=== PATIENT | female | born 1970 | race Caucasian/White ===

== ENCOUNTER 2016-06-03 07:35 | Outpatient (CLI) | payer MEDICAID | END 2016-06-03 07:36 | disposition home or self-care (01) | DX: R11.0 Nausea (principal) ==

== ENCOUNTER 2016-07-22 15:35 | Emergency (ER) | payer MEDICAID ==
[2016-07-22] MEDS ORDERED: FAMOTIDINE 20 MG TABLET PO STA (16:54)
[2016-07-22] MEDS ORDERED: LIDOCAINE VISCOUS 2% 15 ML UDC MM STA (16:54)
[2016-07-22] MEDS ORDERED: MAG HYDROX/AL HYDROX/SIMETH 30 ML UDC PO STA (16:54)
[2016-07-22] MEDS ORDERED: SUCRALFATE 1 GM/10 ML UDC PO STA (16:55)
[2016-07-22] MEDS ORDERED: MAG HYDROX/AL HYDROX/SIMETH 30 ML UDC ONE (17:07)
[2016-07-22] MEDS ORDERED: FAMOTIDINE 20 MG TABLET ONE (17:07)
[2016-07-22] MEDS ORDERED: SUCRALFATE 1 GM/10 ML UDC ONE (17:07)
[2016-07-22] MEDS ORDERED: LIDOCAINE VISCOUS 2% 15 ML UDC MM ONE (17:07)
== END 2016-07-22 18:01 | disposition home or self-care (01) ==
DX: K29.70 Gastritis, unspecified, without bleeding (principal)
CPT/HCPCS: 80053; 83690; 85025; 99283; A9270

== ENCOUNTER 2016-08-12 09:43 | Emergency (ER) | payer MEDICAID ==
[2016-08-12 10:21] LABS: BILIRUBIN,URINE NEGATIVE (NEGATIVE); PH,URINE 5.5 PH (5.0-7.5)
[2016-08-12 10:22] LABS: UA w/ MICROSCOPIC CHARGE YES
[2016-08-12 10:31] LABS: UR CULTURE IF IND NOT INDICATED; WBC,URINE 0-3 /HPF (0-5)
[2016-08-12] MEDS ORDERED: KETOROLAC 60 MG/2 ML VIAL IVP STA (11:02)
[2016-08-12] MEDS ORDERED: SODIUM CHLORIDE 0.9% 1,000 ML IV ONE (11:02)
[2016-08-12] MEDS ORDERED: KETOROLAC 60 MG/2 ML VIAL ONE (11:16)
[2016-08-12 11:31] LABS: EOSINOPHILS # (AUTO) 0.3 10^3/uL (0.0-0.7); LYMPHOCYTES # (AUTO) 2.5 10^3/uL (1.5-3.5); NEUTROPHILS # (AUTO) 5.4 10^3/uL (1.5-6.6)
[2016-08-12 11:32] LABS: BASOPHILS # (AUTO) 0.1 10^3/uL (0.0-0.1); BASOPHILS % (AUTO) 0.7 %; EOSINOPHILS % (AUTO) 3.7 %; HGB - HEMOGLOBIN 15.3 g/dL (12.0-16.0); LYMPHOCYTES % (AUTO) 28.6 %; MEAN CORPUSCULAR HEMOGLOBIN 29.7 pg (27.0-31.0); MEAN CORPUSCULAR HGB CONC 33.9 g/dL (32.0-36.0); MEAN CORPUSCULAR VOLUME 87.4 fL (81.0-99.0); MEAN PLATELET VOLUME 8.5 fL (7.9-10.8); MONOCYTES # (AUTO) 0.5 10^3/uL (0.0-1.0); MONOCYTES % (AUTO) 5.2 %; NEUTROPHILS % (AUTO) 61.8 %; RED BLOOD COUNT 5.15 10^6/uL (4.20-5.40); RED CELL DISTRIBUTION WIDTH 13.8 % (12.0-15.0); UNCORRECTED WHITE BLOOD COUNT 8.8 x10^3/uL; WHITE BLOOD COUNT 8.8 x10^3/uL (4.8-10.8)
[2016-08-12] MEDS ORDERED: KETOROLAC 60 MG/2 ML VIAL IM STA (11:38)
[2016-08-12 11:45] LABS: ALBUMIN/GLOBULIN RATIO 1.3 (1.0-2.2); BILIRUBIN,TOTAL 1.2 mg/dL (0.2-1.0); CALCIUM 9.7 mg/dL (8.5-10.3); CREATININE 0.6 mg/dL (0.4-1.0); POTASSIUM 4.1 mmol/L (3.5-5.0); TOTAL PROTEIN 7.7 g/dL (6.7-8.2)
[2016-08-12 12:04] LABS: HCG UR QUAL NEGATIVE
--- NOTE | 2016-08-12 14:08 | ED Physician Documentation ---
PD HPI ABD PAIN - Stated complaint Stated Complaint: ABD PAIN - Chief complaint Chief Complaint: Abd Pain - History obtained from History obtained from: Patient, Family - History of Present Illness Timing - onset: How many days ago (9) Timing - duration: Days (9) Timing - details: Gradual onset, Still present Quality: Sharp, Pain Location: Suprapubic Radiation: Lower back Improved by: Other (nothing) Worsened by: Palpation Associated symptoms: Nausea. No: Fever, Vomiting, Hematemesis, Diarrhea, Constipation, Melena, Dysuria Similar symptoms before: Has not had sx before Recently seen: Clinic (had a urine test done in the clinic.) - Additional information Additional information: 45 y/o female with suprapubic pain for the past nine days that has not improved. Review of Systems Constitutional: denies: Fever, Chills Eyes: denies: Decreased vision Ears: denies: Ear pain Nose: denies: Congestion Throat: denies: Sore throat Cardiac: denies: Chest pain / pressure, Palpitations Respiratory: denies: Dyspnea, Cough GI: reports: Abdominal Pain, Nausea. denies: Vomiting, Constipation, Diarrhea : reports: Frequency. 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 - Present Medications Home Medications: Ambulatory Orders Medication Instructions Recorded Confirmed Amoxicillin 500 mg PO TID #20 tablet 11/12/15 Dexamethasone [Decadron] 4 mg PO DAILY #10 tablet 11/12/15 Hydrocodone/Acetaminophen [[place] 1 each PO Q6H PRN #15 tablet 11/12/15 5-325 Tablet] Naproxen 375 mg PO BID #20 tablet 11/12/15 Famotidine [Pepcid] 20 mg PO BID #60 tablet 07/22/16 Omeprazole [PriLOSEC] 20 mg PO DAILY #30 capsule 07/22/16 oxyCODONE/ACET 5/325 [Percocet 5 1 each PO Q4-6H #20 tablet 08/12/16 mg/325 mg] - Allergies Allergies/Adverse Reactions: Allergies Allergy/AdvReac Type Severity Reaction Status Date / Time No Known Drug Allergies Allergy Verified 08/18/14 20:48 - Social History Does the pt smoke?: No Smoking Status: Never smoker Does the pt drink ETOH?: No Does the pt have substance abuse?: No - Immunizations Immunizations are current?: Yes - POLST Patient has POLST: No PD ED PE NORMAL - Vitals Vital signs reviewed: Yes (hypesrtensive ) - General General: Alert and oriented X 3, Well developed/nourished, Other (The patient appears to be in pain with corruagator tone and flat affect. ) - HEENT HEENT: Atraumatic, PERRL, EOMI - Neck Neck: Supple, no meningeal sign - Cardiac Cardiac: RRR, No murmur - Respiratory Respiratory: No respiratory distress, Clear bilaterally - Abdomen Abdomen: Soft, Other (There is some mild suprapubic tenderness with out garding or rebound. ) - Back Back: No CVA TTP, No spinal TTP - Derm Derm: Normal color, Warm and dry - Extremities Extremities: No deformity, No edema - Neuro Neuro: Alert and oriented X 3, No motor deficit, No sensory deficit, Normal speech - Psych Psych: Normal mood, Normal affect Results - Vitals Vitals: Vital Signs - 24 hr 08/12/16 08/12/16 09:51 13:10 Temperature 36.4 C L Heart Rate 70 72 Respiratory 18 18 Rate Blood Pressure 129/91 H 109/77 O2 Saturation 98 99 Oxygen O2 Source Room air - Labs Labs: Laboratory Tests 08/12/16 08/12/16 08/12/16 09:57 09:57 11:24 WBC 8.8 RBC 5.15 Hgb 15.3 Hct 45.0 MCV 87.4 MCH 29.7 MCHC 33.9 RDW 13.8 Plt Count 277 MPV 8.5 Neut # 5.4 Lymph # 2.5 [place] # 0.5 Eos # 0.3 Baso # 0.1 Absolute Nucleated RBC 0.00 Nucleated RBCs 0.0 Sodium Potassium Chloride Carbon Dioxide Anion Gap BUN Creatinine Estimated GFR (MDRD) Glucose Calcium Total Bilirubin AST ALT Alkaline Phosphatase Total Protein Albumin Globulin Albumin/Globulin Ratio Lipase Urine Color YELLOW Urine Clarity HAZY Urine pH 5.5 Ur Specific [place] >=1.030 H Y Urine Protein NEGATIVE Urine Glucose (UA) NEGATIVE Urine Ketones NEGATIVE Urine Occult Blood MODERATE H Urine Nitrite NEGATIVE Urine Bilirubin NEGATIVE Urine Urobilinogen 0.2 (NORMAL) Ur Leukocyte Esterase NEGATIVE Urine RBC 11-25 H Urine WBC 0-3 Ur Squamous Epith Cells FEW Squamous Urine Bacteria Few Urine Mucus Few Strands Ur Microscopic Review INDICATED Urine Culture Comments NOT INDICATED Urine HCG, Qual NEGATIVE 08/12/16 11:24 WBC RBC Hgb Hct MCV MCH MCHC RDW Plt Count MPV Neut # Lymph # [place] # Eos # Baso # Absolute Nucleated RBC Nucleated RBCs Sodium 139 Potassium 4.1 Chloride 104 Carbon Dioxide 26 Anion Gap 9.0 BUN 13 Creatinine 0.6 Estimated GFR (MDRD) 109 Glucose 92 Calcium 9.7 Total Bilirubin 1.2 H AST 20 ALT 22 Alkaline Phosphatase 74 Total Protein 7.7 Albumin 4.3 Globulin 3.4 Albumin/Globulin Ratio 1.3 Lipase 21 L Urine Color Urine Clarity Urine pH Ur Specific [place] Urine Protein Urine Glucose (UA) Urine Ketones Urine Occult Blood Urine Nitrite Urine Bilirubin Urine Urobilinogen Ur Leukocyte Esterase Urine RBC Urine WBC Ur Squamous Epith Cells Urine Bacteria Urine Mucus Ur Microscopic Review Urine Culture Comments Urine HCG, Qual - Rads (name of study) pelvic ultrasound Radiology: Prelim report reviewed (No significant abnormality), EMP read indepedently, See rad report CT ab pel without Radiology: Prelim report reviewed (Impression: 1. Nonobstructing 2 mm distal left ureter stone. 2. Multiple nonobstructing right kidney stones.), EMP read indepedently, See rad report Procedures - Bedside sono Bedside sono by EMP: with the use of bedside ultrasound both kidneys are imaged and there is no evidence of hydro. The IVC is imaged and is 1.34 with complete collapse consistent with mild dehydration. PD MEDICAL DECISION MAKING - ED course ED course: 45 y/o female with acute lower abdominal pain has a normal appearing pelvic ultrasound and no hydro on bedside but a lot of blood in the urine as the only objective finding. A CT of the abdomen and pelvis demonstrates the presents of a distal stone in the left ureter and about 9 other small stones in the right kidney. She has some relief with the use of the percocet. Departure - Departure Disposition: 01 Home, Self Care Clinical Impression: Ureterolithiasis Condition: Stable Instructions: ED Stone Renal W Colic Follow-Up: Reji Pérez PA-C [Primary Care Provider] - Prescriptions: oxyCODONE/ACET 5/325 [Percocet 5 mg/325 mg] 1 each PO Q4-6H #20 tablet
[2016-08-12] MEDS ORDERED: oxyCOD/ACETAMIN 5 MG/325 MG TABLET PO STA (14:21)
[2016-08-12] MEDS ORDERED: oxyCOD/ACETAMIN 5 MG/325 MG TABLET PO ONE (14:27)
--- NOTE | 2016-08-12 15:08 | CT Preliminary Report ---
Exam: CT Abdomen/Pelvis W/O IMPRESSION: 1. Nonobstructing 2 mm distal left ureter stone. 2. Multiple nonobstructing right kidney stones. [facility] SITE ID: [id number]
--- NOTE | 2016-08-12 15:12 | CT Report ---
REVISED: THIS REPORT WAS ORIGINALLY SIGNED ON 08/12/2016 @ 1512 ORDERS LINKED ON 08/19/2016 EXAM: CT ABDOMEN AND PELVIS (CT KUB) EXAM DATE: 08/12/2016 02:46 PM. CLINICAL HISTORY: Pelvic pain hematuria. COMPARISONS: 05/28/2014. TECHNIQUE: Routine axial helical CT imaging was performed through the abdomen and pelvis without IV contrast. Reconstructions: Coronal and sagittal. In accordance with CT protocol optimization, one or more of the following dose reduction techniques were utilized for this exam: automated exposure control, adjustment of mA and/or KV based on patient size, or use of iterative reconstructive technique. FINDINGS: Lung Bases: Unremarkable. Right Kidney/Ureter: There are multiple nonobstructing right renal calcifications. The largest right renal calcification measures 5 mm in diameter in the lower pole. The ureters normal in caliber without ureteral stone. Left Kidney/Ureter: No left kidney stone or hydronephrosis. There is a new left pelvic calcification measuring 2 mm in diameter on image 80 in the expected location of the distal left ureter. No perinephric edema. Other Solid Organs: Noncontrast images of the solid organs are grossly unremarkable. Gallbladder/Bile Ducts: Unremarkable. Peritoneal Cavity: No free fluid, free air or flex adenopathy. Bowel is grossly unremarkable. Pelvic Organs: Urinary bladder is empty. Uterus is anteverted. Vasculature: Unremarkable. Other: None. IMPRESSION: 1. Nonobstructing 2 mm distal left ureter stone. 2. Multiple nonobstructing right kidney stones. [facility] Referring Provider Line: [phone] SITE ID: [id number]
--- NOTE | 2016-08-12 15:20 | Ultrasound Report ---
PELVIC ULTRASOUND: 08/12/2016 CLINICAL HISTORY:*Pelvic pain COMPARISON: None. TECHNIQUE: Transabdominal pelvic ultrasound performed for global evaluation. Transvaginal pelvic ultrasound performed for detailed evaluation. Real-time scanning performed and static images obtained. FINDINGS: The uterus is 9.4 cm by 5 cm by 4.1 cm for a volume of 100.7 cubic centimeters. Central intrauterine cavity has a diameter of 1.1 cm. Although its AP diameter is slightly prominent, its configuration appears normal. No enhanced vascular flow is seen. No masses are noted within the uterus. There is a nabothian cyst within the uterine cervix measuring 1.2 cm by 8.2 cm. The left ovary measures 2.1 cm by 2.2 cm by 1.5 cm for a volume of 3.6 cubic centimeters. The right ovary measures 2.2 cm by 1.7 cm by 1.4 cm for a volume of 2.7 cubic centimeters. IMPRESSION: NO SIGNIFICANT ABNORMALITY. JOB #: [id number] EXT JOB #: MTDD
[2016-08-12 15:56] VITALS: BP 116/62
== END 2016-08-12 15:55 | disposition home or self-care (01) ==
LOC: ED 09:43
DX: N20.2 Calculus of kidney with calculus of ureter (principal)
CPT/HCPCS: 36415; 74176; 76830; 76856; 80053; 81001; 81025; 83690; 85025; 93976; 96372; 99283; 99284; A9270; 81003; 87086

== ENCOUNTER 2017-02-11 12:35 | Emergency (ER) | payer MEDICAID ==
[2017-02-11] MEDS ORDERED: ONDANSETRON 4 MG/2 ML VIAL IVP STA (13:06)
[2017-02-11] MEDS ORDERED: HYDROmorphone 1 MG/ML SYRINGE IVP STA ×2 (13:06→14:33)
[2017-02-11 13:26] LABS: BASOPHILS # (AUTO) 0.1 10^3/uL (0.0-0.1); BASOPHILS % (AUTO) 0.9 %; EOSINOPHILS # (AUTO) 0.3 10^3/uL (0.0-0.7); EOSINOPHILS % (AUTO) 3.4 %; HCT - HEMATOCRIT 41.2 % (37.0-47.0); LYMPHOCYTES # (AUTO) 2.1 10^3/uL (1.5-3.5); LYMPHOCYTES % (AUTO) 20.8 %; MEAN CORPUSCULAR HEMOGLOBIN 28.9 pg (27.0-31.0); MEAN CORPUSCULAR VOLUME 84.9 fL (81.0-99.0); MONOCYTES # (AUTO) 0.6 10^3/uL (0.0-1.0); MONOCYTES % (AUTO) 5.5 %; NEUTROPHILS # (AUTO) 7.1 10^3/uL (1.5-6.6); NEUTROPHILS % (AUTO) 69.4 %; NUCLEATED RED BLOOD CELLS AUTO 0.1 /100WBC; RED BLOOD COUNT 4.85 10^6/uL (4.20-5.40); RED CELL DISTRIBUTION WIDTH 14.5 % (12.0-15.0); UNCORRECTED WHITE BLOOD COUNT 10.2 x10^3/uL; WHITE BLOOD COUNT 10.2 x10^3/uL (4.8-10.8)
[2017-02-11] MEDS ORDERED: HYDROmorphone 1 MG/ML SYRINGE ONE ×2 (13:27→14:57)
[2017-02-11] MEDS ORDERED: ONDANSETRON 4 MG/2 ML VIAL ONE (13:27)
[2017-02-11 14:08] LABS: BILIRUBIN,URINE NEGATIVE (NEGATIVE); HCG UR QUAL NEGATIVE; UA w/ MICROSCOPIC CHARGE YES
[2017-02-11 14:19] LABS: UR CULTURE IF IND INDICATED; WBC,URINE >25 /HPF (0-5)
--- NOTE | 2017-02-11 14:27 | CT Report ---
EXAM: CT ABDOMEN AND PELVIS EXAM DATE: 02/11/2017 02:05 PM. CLINICAL HISTORY: RLQ ABD pain . COMPARISONS: 08/12/2016. TECHNIQUE: Routine helical CT imaging was performed through the abdomen and pelvis. IV contrast: No. Enteric contrast: No. Reconstructions: Coronal and sagittal. In accordance with CT protocol optimization, one or more of the following dose reduction techniques w ere utilized for this exam: automated exposure control, adjustment of mA and/or KV based on patient s ize, or use of iterative reconstructive technique. FINDINGS: Lung Bases: Unremarkable. Liver: Normal. No masses. Gallbladder/Bile Ducts: Unremarkable. Spleen: Normal. Pancreas: Normal. Adrenal Glands: Normal. Kidneys: There are 2 stones in the distal right ureter. There is a stone measuring 3 mm at the ureter ovesicular junction. There is a second 3 mm stone in the right pelvis. There is mild to moderate righ t hydronephrosis. There are multiple right kidney stones. The largest nonobstructing right kidney sto ne measures 6 mm in diameter. No hydronephrosis of the left kidney. Peritoneal Cavity/Bowel: Normal. No free fluid, free air or adenopathy. No masses or acute inflammato ry process. The appendix is well visualized and normal. Pelvic Organs: Normal. The bladder and visualized pelvic organs are within normal limits. Vasculature: No aneurysms or other significant abnormality. Bones: No significant abnormality. Other: None. IMPRESSION: 1. Multiple right-sided kidney and ureter stones. There are 2 right ureters stones measuring 3 mm cau sing mild to moderate right hydronephrosis. There are other kidney stones measuring up to 6 mm. [facility] Referring Provider Line: [phone] SITE ID: [id number]
[2017-02-11 14:36] LABS: CREATININE 0.7 mg/dL (0.4-1.0); POTASSIUM 3.9 mmol/L (3.5-5.0)
[2017-02-11 14:37] LABS: ALBUMIN/GLOBULIN RATIO 1.1 (1.0-2.2); BILIRUBIN,TOTAL 0.8 mg/dL (0.2-1.0); CALCIUM 9.5 mg/dL (8.5-10.3); TOTAL PROTEIN 7.3 g/dL (6.7-8.2)
[2017-02-11 14:56] VITALS: BP 120/76
--- NOTE | 2017-02-11 15:21 | ED Physician Documentation ---
PD HPI ABD PAIN - Stated complaint Stated Complaint: R SIDE PX - Chief complaint Chief Complaint: Abd Pain - History obtained from History obtained from: Patient (pt states that she had a sudden onset of right sided flank and RLQ ABD pain. states that she has had renal stones in the past and staes that this feels a little different. she does have bloodin her urine but she has also started her menses.) Review of Systems Constitutional: denies: Fever, Chills, Fatigue Cardiac: denies: Chest pain / pressure, Palpitations Respiratory: denies: Cough, Hemoptysis GI: reports: Abdominal Pain, Nausea, Vomiting. denies: Constipation, Diarrhea : reports: Dysuria, Frequency, Hematuria, Vaginal bleeding. 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 - Present Medications Home Medications: Ambulatory Orders Medication Instructions Recorded Confirmed HYDROcod/ACETAM 5/325 [[place] 5/325] 1 - 2 ea PO Q6H PRN #15 tablet 02/11/17 Ondansetron Odt [Zofran] 4 mg TL Q6H PRN #10 tablet 02/11/17 - Allergies Allergies/Adverse Reactions: Allergies Allergy/AdvReac Type Severity Reaction Status Date / Time No Known Drug Allergies Allergy Verified 02/11/17 12:45 - Social History Does the pt smoke?: No Smoking Status: Never smoker Does the pt drink ETOH?: No Does the pt have substance abuse?: No - Immunizations Immunizations are current?: Yes - POLST Patient has POLST: No PD ED PE NORMAL - Vitals Vital signs reviewed: Yes - General General: Alert and oriented X 3, No acute distress - HEENT HEENT: Atraumatic, Moist mucous membranes - Cardiac Cardiac: RRR, No murmur, No gallop - Respiratory Respiratory: No respiratory distress, Clear bilaterally - Abdomen Abdomen: Normal bowel sounds, Other (RLQ pain w/o rebound or guarding. ) - Back Back: No: No CVA TTP (right CVA tenderness) - Derm Derm: Normal color, Warm and dry, No rash - Neuro Neuro: Alert and oriented X 3 Eye Opening: Spontaneous Motor: Obeys Commands Verbal: Oriented GCS Score: 15 - Psych Psych: Normal mood, Normal affect Results - Vitals Vitals: Vital Signs - 24 hr 02/11/17 02/11/17 02/11/17 12:41 13:32 14:54 Temperature 37.3 C Heart Rate 82 75 67 Respiratory 16 16 18 Rate Blood Pressure 148/95 H 129/84 H 120/76 O2 Saturation 100 98 100 Oxygen O2 Source Room air - Labs Labs: Laboratory Tests 02/11/17 02/11/17 02/11/17 13:05 13:15 13:15 WBC 10.2 RBC 4.85 Hgb 14.0 Hct 41.2 MCV 84.9 MCH 28.9 MCHC 34.0 RDW 14.5 Plt Count 302 MPV 8.0 Neut # 7.1 H Lymph # 2.1 [place] # 0.6 Eos # 0.3 Baso # 0.1 Absolute Nucleated RBC 0.01 Nucleated RBC % 0.1 Sodium 139 Potassium 3.9 Chloride 103 Carbon Dioxide 27 Anion Gap 9.0 BUN 15 Creatinine 0.7 Estimated GFR (MDRD) 91 Glucose 87 Calcium 9.5 Total Bilirubin 0.8 AST 19 ALT 19 Alkaline Phosphatase 74 Total Protein 7.3 Albumin 3.8 Globulin 3.5 Albumin/Globulin Ratio 1.1 Lipase 23 Urine Color YELLOW Urine Clarity CLOUDY Urine pH 6.0 Ur Specific [place] 1.015 Urine Protein NEGATIVE Urine Glucose (UA) NEGATIVE Urine Ketones NEGATIVE Urine Occult Blood MODERATE H Urine Nitrite POSITIVE H Urine Bilirubin NEGATIVE Urine Urobilinogen 0.2 (NORMAL) Ur Leukocyte Esterase SMALL H Urine RBC 0-5 Urine WBC >25 H Urine WBC Clumps PRESENT Ur Squamous Epith Cells FEW Squamous Urine Bacteria Many H Ur Microscopic Review INDICATED Urine Culture Comments INDICATED Urine HCG, Qual NEGATIVE - Rads (name of study) ABD/pelvis Radiology: Final report received (1. Multiple right-sided kidney and ureter stones. There are 2 right ureters stones measuring 3 mm causing mild to moderate right hydronephrosis. There are other kidney stones measuring up to 6 mm) PD MEDICAL DECISION MAKING - ED course Complexity details: d/w patient ED course: pt with hx and PE C/W right sided stones. no signs of sepsis. mild hydro on the right. Will send home with pain meds and zofran. discussed with pt. discussed return precautions. Departure - Departure Disposition: 01 Home, Self Care Clinical Impression: Kidney stones Condition: Good Instructions: Kidney Stones Follow-Up: Reji Pérez PA-C [Primary Care Provider] - Prescriptions: HYDROcod/ACETAM 5/325 [[place] 5/325] 1 - 2 ea PO Q6H PRN #15 tablet PRN Reason: Pain Ondansetron Odt [Zofran] 4 mg TL Q6H PRN #10 tablet PRN Reason: Nausea / Vomiting Comments: return to the ER for any new or worsening symptoms.
== END 2017-02-11 15:56 | disposition home or self-care (01) ==
LOC: ED 12:35
DX: N13.2 Hydronephrosis with renal and ureteral calculous obstruction (principal)
CPT/HCPCS: 36415; 74176; 80053; 81001; 81025; 83690; 85025; 87086; 87181; 96374; 96375; 96376; 99284; J1170; 81003

== ENCOUNTER 2017-02-14 15:02 | Emergency (ER) | payer MEDICAID ==
[2017-02-14 15:38] LABS: BILIRUBIN,URINE NEGATIVE (NEGATIVE)
[2017-02-14 15:39] LABS: UA w/ MICROSCOPIC CHARGE YES
[2017-02-14 15:52] LABS: UR CULTURE IF IND INDICATED; WBC,URINE >25 /HPF (0-5)
[2017-02-14] MEDS ORDERED: MORPHINE 10 MG/ML VIAL IVP STA (16:45)
[2017-02-14] MEDS ORDERED: SODIUM CHLORIDE 0.9% 1,000 ML IV ONE (16:45)
[2017-02-14] MEDS ORDERED: ONDANSETRON 4 MG/2 ML VIAL IVP STA (16:45)
--- NOTE | 2017-02-14 16:48 | ED Physician Documentation ---
PD HPI ABD PAIN - Stated complaint Stated Complaint: FEVER/SIDE PX - Chief complaint Chief Complaint: Abd Pain - History obtained from History obtained from: Patient - History of Present Illness Timing - onset: Other (46-year-old woman with recurrent renal colic, has never seen a urologist and has never needed a intervention. She was seen here on Tuesday with right-sided abdominal pain, CT showed 2 right distal ureteral stones and a 3 mm UVJ stone. There is also another 3 mm stone in the right pelvis causing mild to moderate right hydronephrosis. She had multiple nonobstructing kidney stones as well. She felt better after medication and was sent home. Starting last night she started to have shaking chills and fevers with cloudy malodorous urine. Pain is better but not gone. 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 - Present Medications Home Medications: Ambulatory Orders Medication Instructions Recorded Confirmed No Known Home Medications [No 02/14/17 02/14/17 Known Home Medications] - Allergies Allergies/Adverse Reactions: Allergies Allergy/AdvReac Type Severity Reaction Status Date / Time No Known Drug Allergies Allergy Verified 02/14/17 15:22 - Social History Does the pt smoke?: No Smoking Status: Never smoker Does the pt drink ETOH?: No Does the pt have substance abuse?: No - Family History Family history: reports: Non contributory - Immunizations Immunizations are current?: Yes - POLST Patient has POLST: No PD ED PE NORMAL - Vitals Vital signs reviewed: Yes - General General: Alert and oriented X 3, Other (Clammy and slightly ill-appearing, Tachycardic) - HEENT HEENT: PERRL, EOMI - Neck Neck: Supple, no meningeal sign, No bony TTP - Cardiac Cardiac: Other (Tachycardic, regular, no murmur) - Respiratory Respiratory: No respiratory distress, Clear bilaterally - Abdomen Abdomen: Normal bowel sounds, Soft, Non tender - Derm Derm: Normal color, Warm and dry - Extremities Extremities: No edema, No calf tenderness / cord - Neuro Neuro: Alert and oriented X 3 Eye Opening: Spontaneous Motor: Obeys Commands Verbal: Oriented GCS Score: 15 - Psych Psych: Normal mood, Normal affect Results - Vitals Vitals: Vital Signs - 24 hr 02/14/17 02/14/17 02/14/17 15:16 17:33 17:36 Temperature 37.3 C Heart Rate 130 H 97 119 H Respiratory 18 18 15 Rate Blood Pressure 146/91 H 105/52 L 143/85 H O2 Saturation 100 97 98 02/14/17 19:15 Temperature Heart Rate 119 H Respiratory 20 Rate Blood Pressure 105/63 O2 Saturation 96 Oxygen O2 Source Room air - Labs Labs: Laboratory Tests 02/14/17 02/14/17 02/14/17 15:24 16:50 16:50 WBC 13.1 H RBC 4.56 Hgb 13.0 Hct 39.5 MCV 86.6 MCH 28.6 MCHC 33.0 RDW 14.5 Plt Count 307 MPV 8.0 Neut # SAMPLE STEAMER Lymph # SAMPLE STEAMER [place] # SAMPLE STEAMER Eos # SAMPLE STEAMER Baso # SAMPLE STEAMER Absolute Nucleated RBC SAMPLE STEAMER Total Counted 100 Band Neuts % (Manual) 0 Reactive Lymphs % (Man) 3 Nucleated RBC % SAMPLE STEAMER Neutrophils # (Manual) 11.1 H Lymphocytes # (Manual) 1.2 L Monocytes # (Manual) 0.5 Eosinophils # (Manual) 0.1 Basophils # (Manual) 0.1 Differential Comment MANUAL DIFFERENTIAL WBC Morphology NORMAL APPEARANCE Platelet Estimate NORMAL (130-450,000) Platelet Morphology NORMAL APPEARANCE RBC Morph Micro Appear NORMAL APPEARANCE Sodium 134 L Potassium 3.2 L Chloride 99 L Carbon Dioxide 23 Anion Gap 12.0 BUN 11 Creatinine 0.8 Estimated GFR (MDRD) 78 L Glucose 125 H Lactic Acid Calcium 8.9 Total Bilirubin 1.3 H AST 58 H ALT 62 H Alkaline Phosphatase 79 Total Protein 7.2 Albumin 3.4 Globulin 3.8 Albumin/Globulin Ratio 0.9 L Lipase 18 L Urine Color YELLOW Urine Clarity CLOUDY Urine pH 6.0 Ur Specific [place] 1.015 Urine Protein NEGATIVE Urine Glucose (UA) NEGATIVE Urine Ketones NEGATIVE Urine Occult Blood MODERATE H Urine Nitrite POSITIVE H Urine Bilirubin NEGATIVE Urine Urobilinogen 0.2 (NORMAL) Ur Leukocyte Esterase LARGE H Urine RBC 6-10 H Urine WBC >25 H Urine WBC Clumps PRESENT Ur Squamous Epith Cells FEW Squamous Urine Bacteria Few Ur Microscopic Review INDICATED Urine Culture Comments INDICATED 02/14/17 16:50 WBC RBC Hgb Hct MCV MCH MCHC RDW Plt Count MPV Neut # Lymph # [place] # Eos # Baso # Absolute Nucleated RBC Total Counted Band Neuts % (Manual) Reactive Lymphs % (Man) Nucleated RBC % Neutrophils # (Manual) Lymphocytes # (Manual) Monocytes # (Manual) Eosinophils # (Manual) Basophils # (Manual) Differential Comment WBC Morphology Platelet Estimate Platelet Morphology RBC Morph Micro Appear Sodium Potassium Chloride Carbon Dioxide Anion Gap BUN Creatinine Estimated GFR (MDRD) Glucose Lactic Acid 1.5 Calcium Total Bilirubin AST ALT Alkaline Phosphatase Total Protein Albumin Globulin Albumin/Globulin Ratio Lipase Urine Color Urine Clarity Urine pH Ur Specific [place] Urine Protein Urine Glucose (UA) Urine Ketones Urine Occult Blood Urine Nitrite Urine Bilirubin Urine Urobilinogen Ur Leukocyte Esterase Urine RBC Urine WBC Urine WBC Clumps Ur Squamous Epith Cells Urine Bacteria Ur Microscopic Review Urine Culture Comments Procedures - General procedure General procedure: She was difficult for IV access, the nurse had already tried and failed prior to my evaluation. I personally placed a 20-gauge IV in the right antecubital fossa using real-time ultrasound guidance after ChloraPrep which shankar and flushed well. PD MEDICAL DECISION MAKING - ED course ED course: 46-year-old woman with fever and shaking chills associated with positive urinalysis and known ureteral colic. Positive culture from the other day was reviewed, greater than 100,000 pansensitive E. coli. Call to [facility] urology at 4:45 PM for consultation and likely transfer. Spoke with Dr. Darrell martin who will see in consult but defers to the hospitalist for admission, we agreed on IV Cipro. Accepted by hospitalist there, maria dolores Alexandre completed. Departure - Departure Disposition: 02 Transfer Acute Care Hosp Clinical Impression: Ureterolithiasis, Pyelonephritis Condition: Serious
[2017-02-14] MEDS ORDERED: ONDANSETRON 4 MG/2 ML VIAL ONE (17:01)
[2017-02-14] MEDS ORDERED: MORPHINE 10 MG/ML VIAL ONE (17:01)
[2017-02-14 17:03] LABS: BASOPHILS % (AUTO) 0.3 %; EOSINOPHILS % (AUTO) 0.6 %; HCT - HEMATOCRIT 39.5 % (37.0-47.0); LYMPHOCYTES % (AUTO) 10.4 %; MEAN CORPUSCULAR HEMOGLOBIN 28.6 pg (27.0-31.0); MEAN CORPUSCULAR VOLUME 86.6 fL (81.0-99.0); MONOCYTES % (AUTO) 7.6 %; NEUTROPHILS % (AUTO) 81.1 %; RED BLOOD COUNT 4.56 10^6/uL (4.20-5.40); RED CELL DISTRIBUTION WIDTH 14.5 % (12.0-15.0); UNCORRECTED WHITE BLOOD COUNT 13.1 x10^3/uL; WHITE BLOOD COUNT 13.1 x10^3/uL (4.8-10.8)
[2017-02-14 17:05] LABS: BAND NEUTROPHILS % (MANUAL) 0 %
[2017-02-14] MEDS ORDERED: CIPROFLOXACIN 400 MG/200 ML 200 ML IV ONE ×2 (17:08→17:59)
[2017-02-14 17:20] LABS: ALBUMIN/GLOBULIN RATIO 0.9 (1.0-2.2); BILIRUBIN,TOTAL 1.3 mg/dL (0.2-1.0); CALCIUM 8.9 mg/dL (8.5-10.3); CREATININE 0.8 mg/dL (0.4-1.0); POTASSIUM 3.2 mmol/L (3.5-5.0); TOTAL PROTEIN 7.2 g/dL (6.7-8.2)
[2017-02-14 17:31] LABS: BASOPHILS % (MANUAL) 1 %; EOSINOPHILS % (MANUAL) 1 %; LYMPHOCYTES % (MANUAL) 6 %; NEUTROPHILS % (MANUAL) 85 %; TOTAL CELLS COUNTED 100
[2017-02-14 17:32] LABS: PLATELET ESTIMATE, MANUAL NORMAL (130-450,000) (NORMAL); PLATELET MORPHOLOGY NORMAL APPEARANCE (NORMAL)
[2017-02-14 17:33] LABS: NP AUTO DIFFERENTIAL? YES; NP MAN DIFFERENTIAL? NO
[2017-02-14 17:34] LABS: WBC MORPHOLOGY (MULTIPLE) NORMAL APPEARANCE (NORMAL)
[2017-02-14 19:20] VITALS: BP 105/63
== END 2017-02-14 19:28 | disposition short-term general hospital (02) ==
LOC: ED 15:02
DX: N20.1 Calculus of ureter (principal); N12 Tubulo-interstitial nephritis, not specified as acute or chronic
CPT/HCPCS: 36415; 80053; 81001; 81003; 83605; 83690; 85025; 87040; 87086; 96361; 96365; 96375; 99284

== ENCOUNTER 2017-02-14 19:31 | Outpatient (CLI) | payer MEDICAID | END 2017-02-14 19:32 | disposition short-term general hospital (02) | LOC: EMS 19:31 | PROVIDERS: ATTEND Surgery | DX: N23 Unspecified renal colic (principal) | CPT/HCPCS: A0425; A0426 ==

== ENCOUNTER 2017-03-04 09:28 | Outpatient (CLI) | payer MEDICAID ==
[2017-03-04 16:56] LABS: BILIRUBIN,URINE NEGATIVE (NEGATIVE)
[2017-03-04 17:14] LABS: UR CULTURE IF IND NOT INDICATED
== END 2017-03-04 09:29 | disposition home or self-care (01) ==
LOC: LAB.R 09:28
PROVIDERS: ATTEND Physician Assistant
DX: N20.1 Calculus of ureter (principal)
CPT/HCPCS: 81001; 87086

== ENCOUNTER 2017-03-05 14:48 | Outpatient (CLI) | payer MEDICAID ==
--- NOTE | 2017-03-05 16:57 | Ultrasound Report ---
EXAM: RENAL ULTRASOUND EXAM DATE: 03/05/2017 03:47 PM. CLINICAL HISTORY: URETERAL CALCULUS. COMPARISON: Abdominal pelvic CT 02/11/[address] 08/12/2016. TECHNIQUE: Real-time scanning was performed with static images obtained. FINDINGS: Right Kidney: 11.9 x 4.8 x 4.8 cm. Moderate to severe hydronephrosis. Right renal pelvis AP dimension measures 4.8 cm on image 14. Right upper renal stone measures 1.1 cm in size. Right mid renal stone also measures 1.1 cm. Visualized right ureter is dilated. No contour deforming mass. Left Kidney: 9.8 x 5.4 x 4.9 cm. Potential nonobstructing upper pole stone measures 6 mm, however no distal shadowing. No contour deforming mass. Bladder: Bilateral jets seen. The prevoid bladder volume was 89 cc. The postvoid bladder volume was 6 cc. Other: None. IMPRESSION: 1. Moderate to severe right hydroureteronephrosis. Right renal pelvic AP dimension has increased from 2.[address] 02/11/2017 to 4.8 cm today. This raises concern for persistent right ureteral stone. Majority of right ureter was obscured by overlying bowel gas on present ultrasound. Recommend clinical correlation and consider further evaluation. 2. Right renal stones. 3. Potential nonobstructing left upper renal stone. [facility] Referring Provider Line: [phone] SITE ID: [id number]
== END 2017-03-05 14:49 | disposition home or self-care (01) ==
LOC: DI 14:48
PROVIDERS: ATTEND Physician Assistant
DX: N13.30 Unspecified hydronephrosis (principal); N20.0 Calculus of kidney
CPT/HCPCS: 76770

== ENCOUNTER 2017-04-02 08:26 | Emergency (ER) | payer MEDICAID ==
--- NOTE | 2017-04-02 09:16 | ED Physician Documentation ---
PD HPI URI - Stated complaint Stated Complaint: COUGH - Chief complaint Chief Complaint: Resp - History obtained from History obtained from: Patient - History of Present Illness Timing - onset: How many weeks ago (3) Timing duration: Weeks (3) Timing details: Gradual onset, Still present Associated symptoms: Fever, Swollen nodes, Dry cough, Dyspnea. No: NVD, Bilateral edema Contributing factors: No: Sick contact, Travel, Immunocompromised, COPD / asthma Improves by: No: Medication (had gotten Rx for antibiotics, with some improvement but then symptoms back about 3-4 days ago) Worsened by: Activity Recently seen: Emergency Dept (in [facility], with Rx of Doxycycline.) Review of Systems Constitutional: reports: Chills, Myalgias. 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 - Present Medications Home Medications: Ambulatory Orders Medication Instructions Recorded Confirmed Albuterol Sulf [Ventolin Hfa 1 - 2 puffs INH Q4HR PRN #1 inhaler 04/02/17 Inhaler] Azithromycin [Zithromax] 250 mg PO DAILY #6 tablet 04/02/17 Benzonatate [Tessalon] 100 mg PO TID PRN #25 capsule 04/02/17 Dexamethasone [Decadron] 4 mg PO DAILY #5 tablet 04/02/17 guaiFENesin/CODEINE [Robitussin AC] 10 ml PO Q6H PRN #240 ml 04/02/17 - Allergies Allergies/Adverse Reactions: Allergies Allergy/AdvReac Type Severity Reaction Status Date / Time No Known Drug Allergies Allergy Verified 04/02/17 08:39 - Social History Does the pt smoke?: No Smoking Status: Never smoker Does the pt drink ETOH?: No Does the pt have substance abuse?: No - Immunizations Immunizations are current?: Yes - POLST Patient has POLST: No PD ED PE NORMAL - Vitals Vital signs reviewed: Yes - General General: Alert and oriented X 3, No acute distress, Well developed/nourished - HEENT HEENT: Moist mucous membranes, Pharynx benign - Neck Neck: Supple, no meningeal sign, No adenopathy - Cardiac Cardiac: RRR, No murmur - Respiratory Respiratory: Clear bilaterally - Abdomen Abdomen: Soft, Non tender - Derm Derm: Normal color, Warm and dry, No rash - Extremities Extremities: Normal ROM s pain, No edema, No calf tenderness / cord - Neuro Neuro: Alert and oriented X 3, No motor deficit, Normal speech Results - Vitals Vitals: Vital Signs - 24 hr 04/02/17 04/02/17 08:36 10:27 Temperature 37.3 C 36.8 C Heart Rate 100 74 Respiratory 18 20 Rate Blood Pressure 128/84 H 121/93 H O2 Saturation 100 99 Oxygen O2 Source Room air - Rads (name of study) chest xray Radiology: Prelim report reviewed (no infiltrates) PD MEDICAL DECISION MAKING - ED course Complexity details: reviewed results (no pneumonia), considered differential, d/ w patient Departure - Departure Disposition: 01 Home, Self Care Clinical Impression: Upper respiratory infection Qualifiers: URI type: unspecified URI Qualified Code(s): J06.9 - Acute upper respiratory infection, unspecified Condition: Stable Record reviewed to determine appropriate education?: Yes Instructions: ED Upper Resp Infec Abx Tx Follow-Up: Luann Butcher ARNP [Primary Care Provider] - Prescriptions: Albuterol Sulf [Ventolin Hfa Inhaler] 1 - 2 puffs INH Q4HR PRN #1 inhaler PRN Reason: Shortness Of Air/Wheezing Azithromycin [Zithromax] 250 mg PO DAILY #6 tablet Benzonatate [Tessalon] 100 mg PO TID PRN #25 capsule PRN Reason: Cough Dexamethasone [Decadron] 4 mg PO DAILY #5 tablet guaiFENesin/CODEINE [Robitussin AC] 10 ml PO Q6H PRN #240 ml PRN Reason: Cough Comments: Drink lots of fluids. Use albuterol inhaler 2 puffs 4 times a day for the next 7-10 days. For the inflammation and infection of the bronchioles, use Decadron and azithromycin daily for 5 days as directed. Use bends and elevate as needed for coughing. Use the codeine cough medicine if needed for pain or if the cough. He should be feeling improved over the next several days though the cough may persist for 2-3 weeks. Recheck if worsening or not better in an appropriate timeframe. Discharge Date/Time: 04/02/17 10:27
[2017-04-02] MEDS ORDERED: DEXAMETHASONE 10 MG/ML VIAL PO STA (09:30)
[2017-04-02] MEDS ORDERED: BENZONATATE 100 MG CAPSULE PO STA (09:30)
--- NOTE | 2017-04-02 10:01 | XRAY Report ---
EXAM: CHEST RADIOGRAPHY EXAM DATE: 04/02/2017 09:56 AM. CLINICAL HISTORY: Cough. COMPARISON: 08/18/2014. TECHNIQUE: 2 views. FINDINGS: Lungs/Pleura: No focal opacities evident. No pleural effusion. No pneumothorax. Normal volumes. Mediastinum: Heart and mediastinal contours are unremarkable. Other: None. IMPRESSION: Normal 2-view chest radiography for age and body habitus. No significant change from kolby ANDUJAR Referring Provider Line: [phone] SITE ID: [id number]
[2017-04-02 10:28] VITALS: BP 121/93
== END 2017-04-02 10:27 | disposition home or self-care (01) ==
LOC: ED 08:26
DX: J06.9 Acute upper respiratory infection, unspecified (principal)
CPT/HCPCS: 71046; 93005; 99283; A9270

== ENCOUNTER 2017-04-22 09:39 | Outpatient (CLI) | payer MEDICAID ==
[2017-04-22 13:28] LABS: CALCIUM 9.1 mg/dL (8.5-10.3); CREATININE 0.8 mg/dL (0.4-1.0); URIC ACID 4.7 mg/dL (2.6-7.2)
== END 2017-04-22 09:40 | disposition home or self-care (01) ==
LOC: LAB.N 09:39
PROVIDERS: ATTEND Urology
DX: N20.0 Calculus of kidney (principal)
CPT/HCPCS: 36415; 80048; 83970; 84550

== ENCOUNTER 2017-11-21 15:19 | Emergency (ER) | payer MEDICAID ==
[2017-11-21] MEDS ORDERED: LIDOCAINE VISCOUS 2% 15 ML UDC MM STA (15:49)
[2017-11-21] MEDS ORDERED: MAG HYDROX/AL HYDROX/SIMETH 30 ML UDC PO STA (15:49)
--- NOTE | 2017-11-21 15:53 | ED Physician Documentation ---
PD HPI ABD PAIN - Stated complaint Stated Complaint: AB PX - Chief complaint Chief Complaint: Abd Pain - History obtained from History obtained from: Patient - History of Present Illness Timing - onset: Other (This is a 47-year-old woman with history of 2 C-sections , no other abdominal surgeries. She also has a history of kidney stones. For the last 2 weeks, almost immediately after eating she develops diffuse and upper abdominal cramping associated with nausea but no vomiting. She has had loose and very light colored stools. She denies hematochezia or hematemesis. No fevers. She feels like she is bloated. She has never had this before, but a review of the chart shows that she was checked for Helicobacter pylori in May of last year by an outpatient physician, she does not really remember what symptoms she was having then.) Review of Systems Ten Systems: 10 systems reviewed and negative Constitutional: denies: Fever, Chills Cardiac: denies: Chest pain / pressure, Palpitations Respiratory: denies: Dyspnea, Cough PD PAST MEDICAL HISTORY - Past Medical History Past Medical History: Yes Cardiovascular: None Respiratory: None Endocrine/Autoimmune: None Psych: Anxiety Musculoskeletal: Chronic back pain - Past Surgical History 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 - Present Medications Home Medications: Ambulatory Orders Medication Instructions Recorded Confirmed Omeprazole [PriLOSEC] 20 mg PO DAILY #30 capsule 11/21/17 - Allergies Allergies/Adverse Reactions: Allergies Allergy/AdvReac Type Severity Reaction Status Date / Time No Known Drug Allergies Allergy Verified 11/21/17 15:26 - Social History Does the pt smoke?: No Smoking Status: Never smoker Does the pt drink ETOH?: No Does the pt have substance abuse?: No - Immunizations Immunizations are current?: Yes - POLST Patient has POLST: No PD ED PE NORMAL - Vitals Vital signs reviewed: Yes - General General: Alert and oriented X 3, No acute distress - HEENT HEENT: PERRL, EOMI, Pharynx benign - Neck Neck: Supple, no meningeal sign, No bony TTP - Cardiac Cardiac: RRR, No murmur - Respiratory Respiratory: No respiratory distress, Clear bilaterally - Abdomen Abdomen: Other (Normal bowel tones, minimal upper abdominal tenderness with negative Chaudhary sign and no guarding or rebound.) - Back Back: No CVA TTP, No spinal TTP - Derm Derm: Normal color, Warm and dry - Extremities Extremities: No deformity, No tenderness to palpate - Neuro Neuro: Alert and oriented X 3, No motor deficit, No sensory deficit, Normal speech - Psych Psych: Normal mood, Normal affect Results - Vitals Vitals: Vital Signs - 24 hr 11/21/17 11/21/17 15:22 17:42 Temperature 37.1 C Heart Rate 91 81 Respiratory 16 16 Rate Blood Pressure 134/98 H 128/96 H O2 Saturation 100 99 Oxygen O2 Source Room air - Labs Labs: Laboratory Tests 11/21/17 11/21/17 15:50 15:50 WBC 11.1 H RBC 4.97 Hgb 14.4 Hct 43.1 MCV 86.8 MCH 28.9 MCHC 33.3 RDW 13.9 Plt Count 241 MPV 8.3 Neut # (Auto) Not Reportable Lymph # (Auto) Not Reportable [place] # (Auto) Not Reportable Eos # (Auto) Not Reportable Baso # (Auto) Not Reportable Absolute Nucleated RBC Not Reportable Total Counted 100 Band Neuts % (Manual) 1 Reactive Lymphs % (Man) 1 Abnorm Lymph % (Manual) 0 Nucleated RBC % Not Reportable Neutrophils # (Manual) 5.1 Lymphocytes # (Manual) 3.4 Monocytes # (Manual) 0.4 Eosinophils # (Manual) 2.1 H Basophils # (Manual) 0.0 Differential Comment MANUAL DIFFERENTIAL Manual Slide Review Indicated Platelet Estimate NORMAL (130-450,000) Platelet Morphology 1+ GIANT PLATELETS RBC Morph Micro Appear NORMAL APPEARANCE Sodium 135 Potassium 3.9 Chloride 103 Carbon Dioxide 25 Anion Gap 7.0 BUN 17 Creatinine 0.8 Estimated GFR (MDRD) 78 L Glucose 96 Calcium 9.3 Total Bilirubin 1.3 H AST 18 ALT 17 Alkaline Phosphatase 74 Total Protein 7.2 Albumin 4.0 Globulin 3.2 Albumin/Globulin Ratio 1.3 Lipase 33 - Rads (name of study) RUQ sono Radiology: EMP read contemporaneously (Fatty liver without gallbladder pathology ) PD MEDICAL DECISION MAKING - ED course ED course: 47-year-old woman with subacute upper abdominal pain after eating. She had excellent relief with GI cocktail suggesting gastritis/ulcer. Benign examination. Right upper quadrant ultrasound and basic labs are normal. She was started on a PPI. - Sepsis Event Vital Signs: Vital Signs - 24 hr 09/03/18 09/03/18 15:22 17:42 Temperature 37.1 C Heart Rate 91 81 Respiratory 16 16 Rate Blood Pressure 134/98 H 128/96 H O2 Saturation 100 99 Oxygen O2 Source Room air Departure - Departure Disposition: 01 Home, Self Care Clinical Impression: Gastritis Condition: Good Record reviewed to determine appropriate education?: Yes Instructions: ED Epigastric Pain UKO Prescriptions: Omeprazole [PriLOSEC] 20 mg PO DAILY #30 capsule Comments: Your blood pressure was elevated today on check into the emergency department. This does not mean that you have hypertension, it is a common phenomenon to come to the emergency department and have elevated blood pressure. I recommend that you see your primary care physician within the week to have it rechecked when you are feeling better. Call your doctor to arrange a follow-up appointment, make the next available appointment. In the interim, return anytime if worse or if new symptoms develop. Discharge Date/Time: 11/21/17 17:44
[2017-11-21 16:05] LABS: EOSINOPHILS % (AUTO) 17.8 %; HGB - HEMOGLOBIN 14.4 g/dL (12.0-16.0); LYMPHOCYTES % (AUTO) 24.4 %; MEAN CORPUSCULAR HEMOGLOBIN 28.9 pg (27.0-31.0); MEAN CORPUSCULAR HGB CONC 33.3 g/dL (32.0-36.0); MEAN CORPUSCULAR VOLUME 86.8 fL (81.0-99.0); MEAN PLATELET VOLUME 8.3 fL (7.9-10.8); MONOCYTES % (AUTO) 4.9 %; NEUTROPHILS % (AUTO) 51.9 %; PLT - PLATELET COUNT 241 10^3/uL (130-450); RED BLOOD COUNT 4.97 10^6/uL (4.20-5.40); RED CELL DISTRIBUTION WIDTH 13.9 % (12.0-15.0); WHITE BLOOD COUNT 11.1 x10^3/uL (4.8-10.8)
[2017-11-21 16:18] LABS: ALBUMIN/GLOBULIN RATIO 1.3 (1.0-2.2); BILIRUBIN,TOTAL 1.3 mg/dL (0.2-1.0); CALCIUM 9.3 mg/dL (8.5-10.3); CREATININE 0.8 mg/dL (0.4-1.0); TOTAL PROTEIN 7.2 g/dL (6.7-8.2)
[2017-11-21 16:26] LABS: ABNORMAL LYMPHS % (MANUAL) 0 %
[2017-11-21 16:27] LABS: BAND NEUTROPHILS % (MANUAL) 1 %; DIFFERENTIAL COMMENT MANUAL DIFFERENTIAL; EOSINOPHILS # (MANUAL) 2.1 10^3/uL (0-0.7); LYMPHOCYTES # (MANUAL) 3.4 10^3/uL (1.5-3.5); LYMPHOCYTES % (MANUAL) 30 %; MONOCYTES # (MANUAL) 0.4 10^3/uL (0.0-1.0); NEUTROPHILS # (MANUAL) 5.1 10^3/uL (1.5-6.6); NEUTROPHILS % (MANUAL) 45 %; PLATELET ESTIMATE, MANUAL NORMAL (130-450,000) (NORMAL); PLATELET MORPHOLOGY 1+ GIANT PLATELETS (NORMAL); RBC MORPHOLOGY (MULTIPLE) NORMAL APPEARANCE (NORMAL)
--- NOTE | 2017-11-21 17:16 | Ultrasound Report ---
Reason: epigastric / ruq pain with light stool Procedure Date: 11/21/2017 Accession Number: [id number] / [id number] Procedure: US - Abdomen Limited CPT Code: FULL RESULT: EXAM: ABDOMEN ULTRASOUND LIMITED, RUQ EXAM DATE: 11/21/2017 04:25 PM. CLINICAL HISTORY: Epigastric / ruq pain with light stool. COMPARISON: 02/11/2017 CT. TECHNIQUE: Real-time scanning was performed with static images obtained. FINDINGS: Liver: Diffusely hyperechoic echotexture. No focal liver lesions. 14.9 cm. Main portal vein flow: Hepatopetal. Gallbladder: The gallbladder is contracted. No gallstones, gallbladder wall thickening or pericholecystic fluid collections. Biliary System: CBD measures 4.7 mm. No intrahepatic or extrahepatic ductal dilatation. Other: No right hydronephrosis. The visualized pancreas is unremarkable. IMPRESSION: 1. Fatty liver. 2. No evidence of cholelithiasis, cholecystitis or bile duct obstruction. RADIA
[2017-11-21] MEDS ORDERED: PANTOPRAZOLE 40 MG TABLET PO STA (17:35)
[2017-11-21 17:43] VITALS: BP 128/96
== END 2017-11-21 17:44 | disposition home or self-care (01) ==
LOC: ED 15:19
DX: K29.70 Gastritis, unspecified, without bleeding (principal); R03.0 Elevated blood-pressure reading, without diagnosis of hypertension
CPT/HCPCS: 36415; 76705; 80053; 83690; 85025; 99283; A9270

== ENCOUNTER 2018-01-09 11:46 | Outpatient (CLI) | payer MEDICAID ==
--- NOTE | 2018-01-10 14:09 | Mammography Report ---
Reason: SCREENING EXAM FOR BREAST Procedure Date: 01/09/2018 Accession Number: [id number] / [id number] Procedure: CHUCK - Screening Mammo Impl w/Naman CPT Code: FULL RESULT: EXAM: Screening Mammo Impl w/Naman DATE: 01/09/2018 12:13 PM CLINICAL HISTORY: Routine screening TECHNIQUE: Bilateral CC and MLO views were obtained. Additional implant displaced views are obtained. COMPARISON: 02/10/2015 mammogram and ultrasound FINDINGS: There are scattered fibroglandular densities. No significant interval change. Innumerable bilateral nodular densities are again appreciated, most likely cysts. Cysts were documented on the prior left breast ultrasound of 02/10/2015. No suspicious masses, clustered microcalcifications, or regions of architectural distortion are identified. Bilateral implants are stable in appearance. IMPRESSION: Benign findings RECOMMENDATION: Routine annual screening unless otherwise clinically indicated. BIRADS CATEGORY 2: Benign findings STANDARD QUALIFYING STATEMENTS: 1. This examination was not reviewed with the aid of Computer-Aided Detection (CAD). 2. A negative or benign imaging report should not delay biopsy if clinically suspicious findings are present. Consider surgical consultation if warrented. More than 5% of cancers are not identified by imaging. 3. Dense breasts may obscure an underlying neoplasm. 4. This examination was reviewed with the aid of 3D breast imaging (tomosynthesis).
== END 2018-01-09 11:47 | disposition home or self-care (01) ==
LOC: DI 11:46
PROVIDERS: ATTEND Nurse Practitioner Gerontology
DX: Z12.39 Encounter for other screening for malignant neoplasm of breast (principal)
CPT/HCPCS: 77063; 77067

== ENCOUNTER 2018-03-31 16:10 | Emergency (ER) | payer MEDICAID ==
[2018-03-31 16:32] LABS: BILIRUBIN,URINE NEGATIVE (NEGATIVE); GLUCOSE, URINE (UA) NEGATIVE (NEGATIVE); KETONES,URINE (UA) NEGATIVE (NEGATIVE); LEUKOCYTE ESTERASE, URINE NEGATIVE (NEGATIVE); NITRITE,URINE NEGATIVE (NEGATIVE); OCCULT BLOOD,URINE LARGE (NEGATIVE); PH,URINE 6.5 PH (5.0-7.5); PROTEIN,URINE NEGATIVE (NEGATIVE); UROBILINOGEN,URINE 0.2 (NORMAL) E.U./dL (NORMAL)
[2018-03-31 16:33] LABS: CLARITY,URINE CLEAR (CLEAR)
[2018-03-31 16:34] LABS: HCG UR QUAL NEGATIVE
[2018-03-31 16:44] LABS: BACTERIA,URINE None Seen /HPF (None Seen); RBC,URINE 0-5 /HPF (0-5); SQUAMOUS EPITHELIAL CELL,UR MOD Squamous (<= Few)
[2018-03-31] MEDS ORDERED: KETOROLAC 60 MG/2 ML VIAL IM STA (16:54)
--- NOTE | 2018-03-31 17:46 | CT Report ---
Reason: left flank pain; h/o kidney stones. Procedure Date: 03/31/2018 Accession Number: [id number] / [id number] Procedure: CT - Abdomen/Pelvis W/O CPT Code: FULL RESULT: EXAM: CT ABDOMEN AND PELVIS (CT KUB) EXAM DATE: 03/31/2018 05:15 PM. CLINICAL HISTORY: Left flank pain; h/o kidney stones. COMPARISONS: ABDOMEN/PELVIS W/O 02/11/2017 1:57 PM. TECHNIQUE: Routine axial helical CT imaging was performed through the abdomen and pelvis without IV contrast. Reconstructions: Coronal and sagittal. In accordance with CT protocol optimization, one or more of the following dose reduction techniques were utilized for this exam: automated exposure control, adjustment of mA and/or KV based on patient size, or use of iterative reconstructive technique. FINDINGS: Lung Bases: Unremarkable. Right Kidney/Ureter: At least 7 small nonobstructing renal calculi, ranging from punctate to 2 mm. Scarring in the mid to upper kidney. Otherwise unremarkable. No hydronephrosis. Left Kidney/Ureter: No stones, hydronephrosis, or hydroureter. No perinephric fat stranding. Other Solid Organs: Noncontrast images of the solid organs are grossly unremarkable. Gallbladder/Bile Ducts: Contracted gallbladder. No ductal dilation. Peritoneal Cavity: No free fluid, free air or flex adenopathy. Bowel is grossly unremarkable. Pelvic Organs: No bladder stones or wall thickening. Noncontrast images of the visualized pelvic organs are unremarkable. Vasculature: Unremarkable. Other: Bilateral breast implants. IMPRESSION: 1. Multiple nonobstructing right renal calculi. 2. No calculi on the left. No hydronephrosis. RADIA
--- NOTE | 2018-03-31 18:02 | ED Physician Documentation ---
PD HPI BACK PAIN - Stated complaint Stated Complaint: BK PX - Chief complaint Chief Complaint: Abd Pain - History obtained from History obtained from: Patient - History of Present Illness Timing - onset: How many days ago (3) Location: Mid, Left Quality: Pain Similar symptoms before: Diagnosis (History of similar symptoms in the past with kidney stones.) - Additional information Additional information: The patient is a 47-year-old female with history of kidney stones, who presents with left flank pain that started 3 days ago, awakening her from sleep. She denies fever, dysuria, nausea or vomiting. Her pain is not as bad today as it was at onset. It feels similar to previous pain associated with kidney stones. She has undergone ureteral stent placement on the right in the past. Review of Systems Constitutional: denies: Fever Nose: denies: Congestion Cardiac: denies: Chest pain / pressure Respiratory: denies: Dyspnea, Cough GI: reports: Abdominal Pain (left). 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 Home Medications: Ambulatory Orders Medication Instructions Recorded Confirmed Hydrocodone/Acetaminophen 1 - 2 each PO Q6H PRN #14 tablet 03/31/18 [Hydrocodon-Acetaminophen 5-325] Promethazine [Phenergan] 25 mg PO Q6H PRN #10 tab 03/31/18 - Allergies Allergies/Adverse Reactions: Allergies Allergy/AdvReac Type Severity Reaction Status Date / Time No Known Drug Allergies Allergy Verified 03/31/18 16:15 - Social History Does the pt smoke?: No Smoking Status: Never smoker Does the pt drink ETOH?: No Does the pt have substance abuse?: No - Immunizations Immunizations are current?: Yes - POLST Patient has POLST: No PD ED PE NORMAL - Vitals Vital signs reviewed: Yes (Initially hypertensive.) - General General: Alert and oriented X 3, Well developed/nourished - HEENT HEENT: Atraumatic - Neck Neck: No adenopathy - Cardiac Cardiac: RRR - Respiratory Respiratory: No respiratory distress, Clear bilaterally - Abdomen Abdomen: Soft, Non tender - Back Back: No spinal TTP, Other (Mild left CVA tenderness to palpation.) - Derm Derm: No rash - Extremities Extremities: No edema, No calf tenderness / cord, Other (Straight leg raise test is negative bilaterally.) - Neuro Neuro: Alert and oriented X 3, No motor deficit, No sensory deficit, Other (Deep tendon reflexes are 2+ and equal bilaterally at the patellar and Achilles tendons.) Results - Vitals Vitals: Oxygen O2 Source Room air - Labs Labs: Laboratory Tests 03/31/18 03/31/18 16:22 16:22 Urine Color YELLOW Urine Clarity CLEAR Urine pH 6.5 Ur Specific [place] 1.025 1.025 Urine Protein NEGATIVE Urine Glucose (UA) NEGATIVE Urine Ketones NEGATIVE Urine Occult Blood LARGE H Urine Nitrite NEGATIVE Urine Bilirubin NEGATIVE Urine Urobilinogen 0.2 (NORMAL) Ur Leukocyte Esterase NEGATIVE Urine RBC 0-5 Urine WBC 0-3 Ur Squamous Epith Cells MOD Squamous H Urine Bacteria None Seen Ur Microscopic Review INDICATED Urine HCG, Qual NEGATIVE - Rads (name of study) CT abd/pelvis w/o Radiology: Prelim report reviewed, EMP read contemporaneously, See rad report (Multiple nonobstructing right renal calculi. No calculi on the left. No hydronephrosis.) PD MEDICAL DECISION MAKING - ED course Complexity details: reviewed old records, reviewed results, re-evaluated patient, considered differential, d/w patient ED course: The patient's presentation is suggestive of left renal colic. Urinalysis is positive for microscopic hematuria. However CT scan of the abdomen and pelvis reveals no evidence of left-sided ureteral stone or hydronephrosis. It is possible that she had a kidney stone that has passed. Her presentation does not suggest abdominal aortic aneurysm or pyelonephritis. Treatment in the emergency department included administration of ketorolac, 60 mg IM. She is being discharged with prescriptions for Phenergan and for Vicodin, 14 tablets. I discussed with her the results of the workup, symptomatic treatment and outpatient follow-up, as well as potentially worrisome signs or symptoms that should prompt reevaluation in the emergency department. Departure - Departure Disposition: 01 Home, Self Care Clinical Impression: Renal colic on left side Condition: Stable Instructions: ED Flank Pain Uncertain Cause Follow-Up: Luann Butcher ARNP [Primary Care Provider] - Alanna Rizo MD [Physician No Access] - Prescriptions: Hydrocodone/Acetaminophen [Hydrocodon-Acetaminophen 5-325] 1 - 2 each PO Q6H PRN #14 tablet PRN Reason: pain Promethazine [Phenergan] 25 mg PO Q6H PRN #10 tab PRN Reason: Nausea / Vomiting Comments: Drink plenty of fluids. You can use ibuprofen, up to 800 mg 3 times daily for its anti-inflammatory effect. You can take Vicodin as prescribed if needed for pain. Use Phenergan as prescribed as needed for nausea. Follow-up with your urologist next week as scheduled. Return to the emergency department if you develop increasing flank or abdominal pain, fever, persistent vomiting, or otherwise worrisome symptoms. Discharge Date/Time: 03/31/18 18:24
[2018-03-31 18:20] VITALS: BP 129/89
== END 2018-03-31 18:24 | disposition home or self-care (01) ==
LOC: ED 16:10
DX: N23 Unspecified renal colic (principal); R31.29 Other microscopic hematuria
CPT/HCPCS: 74176; 81001; 81003; 81025; 96372; 99283

== ENCOUNTER 2018-11-03 10:06 | Emergency (ER) | payer SELFPAY ==
[2018-11-03 10:39] LABS: BILIRUBIN,URINE NEGATIVE (NEGATIVE); GLUCOSE, URINE (UA) NEGATIVE (NEGATIVE); KETONES,URINE (UA) NEGATIVE (NEGATIVE); LEUKOCYTE ESTERASE, URINE NEGATIVE (NEGATIVE); NITRITE,URINE NEGATIVE (NEGATIVE); OCCULT BLOOD,URINE LARGE (NEGATIVE); PROTEIN,URINE TRACE mg/dL (NEGATIVE); UROBILINOGEN,URINE 0.2 (NORMAL) E.U./dL (NORMAL)
[2018-11-03 10:44] LABS: CLARITY,URINE HAZY (CLEAR); HCG UR QUAL NEGATIVE
[2018-11-03 10:59] LABS: BACTERIA,URINE Few /HPF (None Seen); RBC,URINE TNTC /HPF (0-5); SQUAMOUS EPITHELIAL CELL,UR FEW Squamous (<= Few)
[2018-11-03 12:05] LABS: BASOPHILS # (AUTO) 0.1 10^3/uL (0.0-0.1); BASOPHILS % (AUTO) 0.4 %; EOSINOPHILS # (AUTO) 0.2 10^3/uL (0.0-0.7); EOSINOPHILS % (AUTO) 1.4 %; HGB - HEMOGLOBIN 15.3 g/dL (12.0-16.0); LYMPHOCYTES # (AUTO) 1.9 10^3/uL (1.5-3.5); LYMPHOCYTES % (AUTO) 14.4 %; MEAN CORPUSCULAR HEMOGLOBIN 29.9 pg (27.0-31.0); MEAN CORPUSCULAR HGB CONC 33.5 g/dL (32.0-36.0); MEAN CORPUSCULAR VOLUME 89.3 fL (81.0-99.0); MEAN PLATELET VOLUME 9.9 fL (7.9-10.8); MONOCYTES # (AUTO) 0.6 10^3/uL (0.0-1.0); MONOCYTES % (AUTO) 4.4 %; NEUTROPHILS # (AUTO) 10.5 10^3/uL (1.5-6.6); NEUTROPHILS % (AUTO) 78.8 %; PLT - PLATELET COUNT 325 10^3/uL (130-450); RED BLOOD COUNT 5.12 10^6/uL (4.20-5.40); RED CELL DISTRIBUTION WIDTH 13.4 % (12.0-15.0); WHITE BLOOD COUNT 13.3 x10^3/uL (4.8-10.8)
[2018-11-03 12:09] LABS: ALBUMIN 4.2 g/dL (3.2-5.5); ALBUMIN/GLOBULIN RATIO 1.2 (1.0-2.2); BILIRUBIN,TOTAL 1.1 mg/dL (0.2-1.0); CALCIUM 10.3 mg/dL (8.5-10.3); CREATININE 0.9 mg/dL (0.4-1.0); TOTAL PROTEIN 7.6 g/dL (6.7-8.2)
[2018-11-03] MEDS ORDERED: KETOROLAC 30 MG/ML VIAL IVP STA (12:13)
[2018-11-03] MEDS ORDERED: SODIUM CHLORIDE 0.9% 1,000 ML IV ONE (12:13)
[2018-11-03] MEDS ORDERED: fentaNYL 100 MCG/2 ML VIAL IVP STA (12:14)
[2018-11-03] MEDS ORDERED: ONDANSETRON 4 MG/2 ML VIAL IVP STA (12:14)
[2018-11-03 13:05] VITALS: BP 109/72
--- NOTE | 2018-11-03 13:21 | CT Report ---
Reason: right flank pain and hematuria Procedure Date: 11/03/2018 Accession Number: [id number] / [id number] Procedure: CT - Abdomen/Pelvis WO CPT Code: FULL RESULT: EXAM: CT ABDOMEN AND PELVIS (CT KUB) EXAM DATE: 11/03/2018 12:52 PM. CLINICAL HISTORY: Right flank pain and hematuria. COMPARISONS: ABDOMEN/PELVIS W/O 03/31/2018 5:05 PM. TECHNIQUE: Routine axial helical CT imaging was performed through the abdomen and pelvis without IV contrast. Reconstructions: Coronal and sagittal. In accordance with CT protocol optimization, one or more of the following dose reduction techniques were utilized for this exam: automated exposure control, adjustment of mA and/or KV based on patient size, or use of iterative reconstructive technique. FINDINGS: Lung Bases: Unremarkable. Right Kidney/Ureter: Several nonobstructing right renal calculi measuring up to 3 mm are seen. There is right periureteral fat stranding and hydroureter with only minimal hydronephrosis in the setting of a right ureterovesicular junction calculus, up to 3 mm in size. Mild perinephric fat stranding. Left Kidney/Ureter: No stones, hydronephrosis, or hydroureter. No perinephric fat stranding. Other Solid Organs: Noncontrast images of the solid organs are grossly unremarkable. Gallbladder/Bile Ducts: Unremarkable. Peritoneal Cavity: No free fluid, free air or flex adenopathy. Bowel is grossly unremarkable. Appendix is normal. Pelvic Organs: No bladder stones or wall thickening. Noncontrast images of the visualized pelvic organs are unremarkable. Vasculature: Unremarkable. Other: None. IMPRESSION: Right ureterovesicular junction calculus, 3 mm size, mild upstream hydroureteronephrosis. RADIA
--- NOTE | 2018-11-03 13:33 | ED Physician Documentation ---
PD HPI ABD PAIN - Stated complaint Stated Complaint: STOMACH AND BACK PAIN - Chief complaint Chief Complaint: Abd Pain - History obtained from History obtained from: Patient - History of Present Illness Timing - onset: Last night Timing - details: Abrupt onset, Still present Quality: Pain Radiation: Right flank Associated symptoms: Vomiting (last night.) Similar symptoms before: Diagnosis (History of kidney stones.) - Additional information Additional information: The patient is a 48-year-old female with history of kidney stones, who presents with right flank pain radiating to the right groin. Her pain started suddenly last night, and continues today. She had vomiting last night but not this morning. She denies fever or dysuria. She underwent ureteral stent placement last time she had a kidney stone. Review of Systems Constitutional: denies: Fever Nose: denies: Congestion Throat: denies: Sore throat Cardiac: denies: Chest pain / pressure Respiratory: denies: Dyspnea, Cough GI: reports: Abdominal Pain, Vomiting (last night) : denies: Dysuria, Hematuria Skin: denies: Rash Musculoskeletal: reports: Back pain (right flank) Neurologic: denies: Focal weakness, Numbness, Headache PD PAST MEDICAL HISTORY - Past Medical History Past Medical History: Yes Cardiovascular: None Respiratory: None Endocrine/Autoimmune: None : Kidney stones Psych: Anxiety Musculoskeletal: Chronic back pain - Past Surgical History 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 - Present Medications Home Medications: Ambulatory Orders Medication Instructions Recorded Confirmed Oxycodone HCl/Acetaminophen 1 - 2 each PO Q6H PRN #14 tablet 11/03/18 [Percocet 5-325 mg Tablet] Promethazine [Phenergan] 25 mg PO Q6H PRN #10 tab 11/03/18 Tamsulosin HCl [Flomax] 0.4 mg PO DAILY #7 capsule 11/03/18 - Allergies Allergies/Adverse Reactions: Allergies Allergy/AdvReac Type Severity Reaction Status Date / Time No Known Drug Allergies Allergy Verified 03/31/18 16:15 - Social History Does the pt smoke?: No Smoking Status: Never smoker Does the pt drink ETOH?: No Does the pt have substance abuse?: No - Immunizations Immunizations are current?: Yes - POLST Patient has POLST: No PD ED PE NORMAL - Vitals Vital signs reviewed: Yes (Borderline hypertension initially.) - General General: Alert and oriented X 3, Well developed/nourished - HEENT HEENT: Atraumatic, Moist mucous membranes - Neck Neck: No adenopathy - Cardiac Cardiac: RRR - Respiratory Respiratory: No respiratory distress, Clear bilaterally - Abdomen Abdomen: Soft, Non tender - Back Back: Other (Right flank tenderness to percussion.) - Derm Derm: No rash - Extremities Extremities: No edema, No calf tenderness / cord - Neuro Neuro: Alert and oriented X 3, No motor deficit, Normal speech Results - Vitals Vitals: Oxygen O2 Source Room air - Labs Labs: Laboratory Tests 11/03/18 11/03/18 11/03/18 10:21 11:45 11:45 WBC 13.3 H RBC 5.12 Hgb 15.3 Hct 45.7 MCV 89.3 MCH 29.9 MCHC 33.5 RDW 13.4 Plt Count 325 MPV 9.9 Neut # (Auto) 10.5 H Lymph # (Auto) 1.9 [place] # (Auto) 0.6 Eos # (Auto) 0.2 Baso # (Auto) 0.1 Absolute Nucleated RBC 0.00 Nucleated RBC % 0.0 Sodium 139 Potassium 4.0 Chloride 105 Carbon Dioxide 23 Anion Gap 11.0 BUN 16 Creatinine 0.9 Estimated GFR (MDRD) 67 L Glucose 141 H Calcium 10.3 Total Bilirubin 1.1 H AST 25 ALT 26 Alkaline Phosphatase 76 Total Protein 7.6 Albumin 4.2 Globulin 3.4 Albumin/Globulin Ratio 1.2 Lipase 23 Urine Color YELLOW Urine Clarity HAZY Urine pH 6.0 Ur Specific [place] >=1.030 H Urine Protein TRACE Urine Glucose (UA) NEGATIVE Urine Ketones NEGATIVE Urine Occult Blood LARGE H Urine Nitrite NEGATIVE Urine Bilirubin NEGATIVE Urine Urobilinogen 0.2 (NORMAL) Ur Leukocyte Esterase NEGATIVE Urine RBC TNTC H Urine WBC 4-5 Ur Squamous Epith Cells FEW Squamous Urine Bacteria Few Ur Microscopic Review INDICATED Urine Culture Comments NOT INDICATED Urine HCG, Qual NEGATIVE - Rads (name of study) CT abd/pelvis Radiology: Prelim report reviewed, EMP read contemporaneously, See rad report (Right ureterovesical junction calculus, 3 mm size, mild upstream hydroureteronephrosis.) PD MEDICAL DECISION MAKING - ED course Complexity details: reviewed old records, reviewed results, re-evaluated patient, considered differential, d/w patient ED course: The patient's presentation is most consistent with renal colic, with 3 mm calculus identified at the right UVJ on CT scan. Her urinalysis is positive for microscopic hematuria, without evidence of pyelonephritis. Treatment in the emergency department included administration of normal saline 1 L IV, ketorolac 30 mg IV, fentanyl 100 g IV, and Zofran 4 mg IV. Her her pain and nausea resolved with the above treatment. She is being discharged with prescriptions for Flomax, Percocet, and Phenergan. I discussed with her the diagnosis, outpatient follow-up, as well as potentially worrisome signs or symptoms that should prompt reevaluation in the emergency department. Departure - Departure Disposition: 01 Home, Self Care Clinical Impression: Renal colic on right side, Ureteral stone with hydronephrosis Condition: Stable Instructions: ED Stone Renal W Colic Follow-Up: Luann Butcher ARNP [Primary Care Provider] - Alanna Rizo MD [Physician No Access] - Prescriptions: Oxycodone HCl/Acetaminophen [Percocet 5-325 mg Tablet] 1 - 2 each PO Q6H PRN #14 tablet PRN Reason: pain Promethazine [Phenergan] 25 mg PO Q6H PRN #10 tab PRN Reason: Nausea / Vomiting Tamsulosin HCl [Flomax] 0.4 mg PO DAILY #7 capsule Comments: Drink plenty of fluids. You can take Percocet as prescribed if needed for pain. Take Flomax daily as prescribed. You can use Phenergan as prescribed if needed for nausea. Follow-up with your primary physician or your urologist within 1 week. Call to schedule an appointment. Return to the emergency department if you develop increasing pain, persistent vomiting, fever, or otherwise worsening symptoms. Discharge Date/Time: 11/03/18 14:13
== END 2018-11-03 14:13 | disposition home or self-care (01) ==
LOC: ED 10:06
DX: N13.2 Hydronephrosis with renal and ureteral calculous obstruction (principal); Z87.442 Personal history of urinary calculi
CPT/HCPCS: 36415; 74176; 80053; 81001; 81003; 81025; 83690; 85025; 87086; 96361; 96374; 99284

== ENCOUNTER 2019-08-10 14:35 | Outpatient (CLI) | payer MEDICAID ==
[2019-08-10 18:11] LABS: BASOPHILS # (AUTO) 0.1 10^3/uL (0.0-0.1); BASOPHILS % (AUTO) 0.5 %; EOSINOPHILS # (AUTO) 0.5 10^3/uL (0.0-0.7); EOSINOPHILS % (AUTO) 4.8 %; HGB - HEMOGLOBIN 14.2 g/dL (12.0-16.0); LYMPHOCYTES # (AUTO) 2.8 10^3/uL (1.5-3.5); LYMPHOCYTES % (AUTO) 27.6 %; MEAN CORPUSCULAR HGB CONC 31.8 g/dL (32.0-36.0); MEAN PLATELET VOLUME 10.3 fL (7.9-10.8); MONOCYTES # (AUTO) 0.6 10^3/uL (0.0-1.0); MONOCYTES % (AUTO) 5.5 %; NEUTROPHILS # (AUTO) 6.3 10^3/uL (1.5-6.6); NEUTROPHILS % (AUTO) 61.1 %; PLT - PLATELET COUNT 277 10^3/uL (130-450); WHITE BLOOD COUNT 10.3 x10^3/uL (4.8-10.8)
[2019-08-10 18:39] LABS: ALBUMIN 3.9 g/dL (3.2-5.5); ALBUMIN/GLOBULIN RATIO 1.2 (1.0-2.2); CALCIUM 9.5 mg/dL (8.5-10.3); CREATININE 0.8 mg/dL (0.4-1.0); TOTAL PROTEIN 7.2 g/dL (6.7-8.2)
[2019-08-10 18:48] LABS: RHEUMATOID FACTOR NEGATIVE (Negative)
[2019-08-10 19:38] LABS: HB2 TOTAL 15.1 g/dL; HEMOGLOBIN A1C 0.49 g/dL; HEMOGLOBIN A1C % 5.1 % (4.6-6.2)
== END 2019-08-10 23:59 | disposition home or self-care (01) ==
LOC: LAB.WCP 14:35
PROVIDERS: ATTEND Nurse Practitioner Family
DX: E66.9 Obesity, unspecified (principal); R53.83 Other fatigue; Z82.61 Family history of arthritis
CPT/HCPCS: 36415; 80053; 83036; 84443; 85025; 85651; 86430

== ENCOUNTER 2019-09-13 19:41 | Emergency (ER) | payer MEDICAID ==
--- NOTE | 2019-09-13 19:55 | ED Physician Documentation ---
PD HPI ABD PAIN - Stated complaint Stated Complaint: ABD PAIN - Chief complaint Chief Complaint: Abd Pain - History obtained from History obtained from: Patient - History of Present Illness Timing - onset: How many days ago (5) Timing - duration: Days (5) Timing - details: Gradual onset, Waxing and waning Pain level now: 7 Quality: Fullness/distended, Other (burning) Location: Epigastric Radiation: Other (no radiation) Improved by: Other (nothing) Worsened by: Eating Associated symptoms: Nausea. No: Fever, Vomiting, Diarrhea, Constipation Similar symptoms before: Diagnosis (similar to previous episodes of gastritis) Recently seen: Not recently seen Review of Systems Constitutional: denies: Fever, Chills, Sweats Cardiac: reports: Reviewed and negative Respiratory: reports: Reviewed and negative GI: reports: Abdominal Pain, Nausea. 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 - Present Medications Home Medications: Ambulatory Orders Medication Instructions Recorded Confirmed Lidocaine HCl [Lidocaine HCl 15 ml PO QID #100 ml 09/13/19 Viscous] - Allergies Allergies/Adverse Reactions: Allergies Allergy/AdvReac Type Severity Reaction Status Date / Time No Known Drug Allergies Allergy Verified 09/13/19 19:48 - Social History Does the pt smoke?: No Smoking Status: Never smoker Does the pt drink ETOH?: No Does the pt have substance abuse?: No - Immunizations Immunizations are current?: Yes - POLST Patient has POLST: No PD ED PE NORMAL - Vitals Vital signs reviewed: Yes - General General: Alert and oriented X 3, No acute distress, Well developed/nourished - HEENT HEENT: Moist mucous membranes - Cardiac Cardiac: RRR, No murmur - Respiratory Respiratory: No respiratory distress, Clear bilaterally - Abdomen Abdomen: Soft, Non distended, Other (mild epigastric tenderness without rebound or guarding) - Back Back: No CVA TTP - Derm Derm: Normal color, Warm and dry, No rash Results - Vitals Vitals: Vital Signs - 24 hr 09/13/19 09/13/19 19:45 22:08 Temperature 36.5 C Heart Rate 112 H 92 Respiratory 16 16 Rate Blood Pressure 146/106 H 145/95 H O2 Saturation 98 99 Oxygen O2 Source Room air - Labs Labs: Laboratory Tests 09/13/19 09/13/19 20:31 20:31 WBC 11.8 H RBC 5.05 Hgb 14.8 Hct 45.7 MCV 90.5 MCH 29.3 MCHC 32.4 RDW 13.6 Plt Count 285 MPV 9.6 Neut # (Auto) 6.8 H Lymph # (Auto) 3.2 [place] # (Auto) 0.8 Eos # (Auto) 0.9 H Baso # (Auto) 0.1 Absolute Nucleated RBC 0.00 Nucleated RBC % 0.0 Sodium 138 Potassium 3.7 Chloride 102 Carbon Dioxide 27 Anion Gap 9.0 BUN 21 H Creatinine 0.8 Estimated GFR (MDRD) 77 L Glucose 96 Calcium 9.4 Total Bilirubin 1.1 H AST 19 ALT 22 Alkaline Phosphatase 79 Total Protein 7.5 Albumin 4.1 Globulin 3.4 Albumin/Globulin Ratio 1.2 Lipase 29 PD MEDICAL DECISION MAKING - ED course Complexity details: reviewed results, re-evaluated patient, considered differential, d/w patient ED course: patient reports good symptomatic relief with GI cocktail and PO PPI. blood test results are unremarkable and reassuring Departure - Departure Disposition: 01 Home, Self Care Clinical Impression: Gastritis Condition: Good Instructions: ED PUD Vs Gastritis Prescriptions: Lidocaine HCl [Lidocaine HCl Viscous] 15 ml PO QID #100 ml Comments: You should take maalox with the lidocaine (30 milliliters (2 tablespoons)). You should take Nexium or Prilosec once per day for the next 2 weeks. Discharge Date/Time: 09/13/19 22:10
[2019-09-13] MEDS ORDERED: PANTOPRAZOLE 40 MG TABLET PO STA (20:18)
[2019-09-13] MEDS ORDERED: LIDOCAINE VISCOUS 2% 15 ML UDC MM STA (20:19)
[2019-09-13] MEDS ORDERED: MAG HYDROX/AL HYDROX/SIMETH 30 ML UDC PO STA (20:19)
[2019-09-13 20:37] LABS: BASOPHILS # (AUTO) 0.1 10^3/uL (0.0-0.1); BASOPHILS % (AUTO) 0.5 %; EOSINOPHILS # (AUTO) 0.9 10^3/uL (0.0-0.7); EOSINOPHILS % (AUTO) 7.7 %; HGB - HEMOGLOBIN 14.8 g/dL (12.0-16.0); LYMPHOCYTES # (AUTO) 3.2 10^3/uL (1.5-3.5); LYMPHOCYTES % (AUTO) 27.2 %; MEAN CORPUSCULAR HEMOGLOBIN 29.3 pg (27.0-31.0); MEAN CORPUSCULAR HGB CONC 32.4 g/dL (32.0-36.0); MEAN CORPUSCULAR VOLUME 90.5 fL (81.0-99.0); MEAN PLATELET VOLUME 9.6 fL (7.9-10.8); MONOCYTES # (AUTO) 0.8 10^3/uL (0.0-1.0); MONOCYTES % (AUTO) 6.3 %; NEUTROPHILS # (AUTO) 6.8 10^3/uL (1.5-6.6); NEUTROPHILS % (AUTO) 57.8 %; PLT - PLATELET COUNT 285 10^3/uL (130-450); RED BLOOD COUNT 5.05 10^6/uL (4.20-5.40); RED CELL DISTRIBUTION WIDTH 13.6 % (12.0-15.0); WHITE BLOOD COUNT 11.8 x10^3/uL (4.8-10.8)
[2019-09-13 20:54] LABS: ALBUMIN 4.1 g/dL (3.2-5.5); ALBUMIN/GLOBULIN RATIO 1.2 (1.0-2.2); BILIRUBIN,TOTAL 1.1 mg/dL (0.2-1.0); CALCIUM 9.4 mg/dL (8.5-10.3); CREATININE 0.8 mg/dL (0.4-1.0); TOTAL PROTEIN 7.5 g/dL (6.7-8.2)
[2019-09-13 22:08] VITALS: BP 145/95
== END 2019-09-13 22:10 | disposition home or self-care (01) ==
LOC: ED 19:41
DX: K29.70 Gastritis, unspecified, without bleeding (principal)
CPT/HCPCS: 36415; 80053; 83690; 85025; 99283; 99284; A9270; 87338

== ENCOUNTER 2019-09-24 12:49 | Outpatient (CLI) | payer MEDICAID ==
--- NOTE | 2019-09-25 11:49 | Mammography Report ---
BILATERAL DIGITAL SCREENING MAMMOGRAM 3D/2D WITH AUGMENTATION: 09/24/2019 CLINICAL: Routine screening. Comparison is made to exams dated: 01/09/2018 mammogram and 02/10/2015 mammogram - formerly [facility]. The tissue of both breasts is heterogeneously dense. This may lower the sensitivity of mammography. Bilateral breast implants are present. No significant masses, calcifications, or other findings are seen in either breast. There has been no significant interval change. IMPRESSION: There is no mammographic evidence of malignancy. A 1 year screening mammogram is recommended. This exam was interpreted at Station ID: [id number]. NOTE: For mammograms, a report in lay terms will be sent to the patient. Approximately 15% of breast malignancies will not be visualized mammographically. In the management of a palpable breast mass, a negative mammogram must not discourage biopsy of a clinically suspicious lesion. Electronically Signed By: Stone Santana M.D., jr/shira:09/24/2019 15:36:17 ACR BI-RADS Category 2: Benign Finding(s) 3342F PARENCHYMAL PATTERN: (D) - The breast(s) demonstrate(s) heterogeneously dense fibroglandular rimma hernández. BI-RADS CATEGORY: (2) - 2 RECOMMENDATION: (ANNUAL) - Recommend routine annual screening mammography. [id number] 1 year screening LATERALITY: (B)
== END 2019-09-24 12:50 | disposition home or self-care (01) ==
LOC: DI 12:49
DX: Z12.31 Encounter for screening mammogram for malignant neoplasm of breast (principal)
CPT/HCPCS: 77063; 77067

== ENCOUNTER 2019-09-26 20:01 | Emergency (ER) | payer MEDICAID ==
--- NOTE | 2019-09-26 21:03 | ED Physician Documentation ---
PD HPI ABD PAIN - Stated complaint Stated Complaint: ABD PX/VOM - Chief complaint Chief Complaint: Abd Pain - History obtained from History obtained from: Patient - History of Present Illness Timing - onset: How many weeks ago (3.5) Timing - details: Abrupt onset, Intermittant, Waxing and waning Pain level max: 8 Pain level now: 6 Quality: Pain Location: RUQ, Epigastric Radiation: Other (no radiation) Improved by: Other (nothing) Worsened by: Eating Associated symptoms: Nausea, Vomiting. No: Fever, Hematemesis, Diarrhea, Constipation, Melena, Hematochezia Similar symptoms before: No diagnosis (T+R from this ED 09/13/19 for similar symptoms) Recently seen: Emergency Dept Review of Systems Constitutional: denies: Fever, Chills, Sweats Cardiac: reports: Reviewed and negative Respiratory: reports: Reviewed and negative GI: reports: Abdominal Pain, Abdominal Swelling, Nausea, Vomiting. 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 Medications Home Medications: Ambulatory Orders Medication Instructions Recorded Confirmed Lidocaine HCl [Lidocaine HCl 15 ml PO QID #100 ml 09/13/19 Viscous] Lidocaine HCl [Lidocaine HCl 15 ml PO QID PRN #100 ml 09/27/19 Viscous] Ondansetron Odt [Zofran] 4 mg TL Q6H PRN #10 tablet 09/27/19 oxyCODONE [Roxicodone] 5 - 10 mg PO Q6H PRN #14 tablet 09/27/19 - Allergies Allergies/Adverse Reactions: Allergies Allergy/AdvReac Type Severity Reaction Status Date / Time No Known Drug Allergies Allergy Verified 09/26/19 20:10 - Social History Does the pt smoke?: No Smoking Status: Never smoker Does the pt drink ETOH?: No Does the pt have substance abuse?: No - Immunizations Immunizations are current?: Yes - POLST Patient has POLST: No PD ED PE NORMAL - Vitals Vital signs reviewed: Yes - General General: Alert and oriented X 3, Well developed/nourished, Other (appears to be in mild/moderate painful distress) - HEENT HEENT: Moist mucous membranes - Cardiac Cardiac: RRR, No murmur - Respiratory Respiratory: No respiratory distress, Clear bilaterally - Abdomen Abdomen: Soft, Non distended, Other (mild TTP RUQ and epigastrium without rebound or guarding) - Back Back: No CVA TTP Results - Vitals Vitals: Vital Signs - 24 hr 09/26/19 09/27/19 20:10 00:36 Temperature 36.8 C Heart Rate 100 75 Respiratory 20 16 Rate Blood Pressure 154/107 H 135/98 H O2 Saturation 99 100 Oxygen O2 Source Room air - Labs Labs: Laboratory Tests 09/26/19 09/26/19 09/26/19 21:03 21:03 21:39 WBC RBC Hgb Hct MCV MCH MCHC RDW Plt Count MPV Neut # (Auto) Lymph # (Auto) [place] # (Auto) Eos # (Auto) Baso # (Auto) Absolute Nucleated RBC Band Neuts % (Manual) Abnorm Lymph % (Manual) Nucleated RBC % Neutrophils # (Manual) Lymphocytes # (Manual) Monocytes # (Manual) Eosinophils # (Manual) Basophils # (Manual) Differential Comment Platelet Estimate RBC Morph Micro Appear Sodium 139 Potassium 3.7 Chloride 101 Carbon Dioxide 28 Anion Gap 10.0 BUN 15 Creatinine 0.8 Estimated GFR (MDRD) 77 L Glucose 91 Calcium 9.5 Total Bilirubin 0.9 AST 19 ALT 21 Alkaline Phosphatase 69 Total Protein 7.6 Albumin 4.1 Globulin 3.5 Albumin/Globulin Ratio 1.2 Lipase 36 Urine Color YELLOW Urine Clarity CLEAR Urine pH 6.5 Ur Specific [place] <=1.005 <1.005 Urine Protein NEGATIVE Urine Glucose (UA) NEGATIVE Urine Ketones NEGATIVE Urine Occult Blood TRACE-INTA Urine Nitrite NEGATIVE Urine Bilirubin NEGATIVE Urine Urobilinogen 0.2 (NORMAL) Ur Leukocyte Esterase NEGATIVE Ur Microscopic Review NOT INDICATED Urine Culture Comments NOT INDICATED Urine HCG, Qual NEGATIVE 09/26/19 21:39 WBC 10.5 RBC 4.98 Hgb 14.7 Hct 44.6 MCV 89.6 MCH 29.5 MCHC 33.0 RDW 13.2 Plt Count 303 MPV 9.4 Neut # (Auto) 5.4 Lymph # (Auto) 3.1 [place] # (Auto) 0.6 Eos # (Auto) 1.3 H Baso # (Auto) 0.1 Absolute Nucleated RBC 0.00 Band Neuts % (Manual) Not Reportable Abnorm Lymph % (Manual) Not Reportable Nucleated RBC % 0.0 Neutrophils # (Manual) Not Reportable Lymphocytes # (Manual) Not Reportable Monocytes # (Manual) Not Reportable Eosinophils # (Manual) Not Reportable Basophils # (Manual) Not Reportable Differential Comment MANUAL=AUTO DIFF Platelet Estimate NORMAL (130-450,000) RBC Morph Micro Appear NORMAL APPEARANCE Sodium Potassium Chloride Carbon Dioxide Anion Gap BUN Creatinine Estimated GFR (MDRD) Glucose Calcium Total Bilirubin AST ALT Alkaline Phosphatase Total Protein Albumin Globulin Albumin/Globulin Ratio Lipase Urine Color Urine Clarity Urine pH Ur Specific [place] Urine Protein Urine Glucose (UA) Urine Ketones Urine Occult Blood Urine Nitrite Urine Bilirubin Urine Urobilinogen Ur Leukocyte Esterase Ur Microscopic Review Urine Culture Comments Urine HCG, Qual - Rads (name of study) RUQ US Radiology: Prelim report reviewed, See rad report PD MEDICAL DECISION MAKING - ED course Complexity details: reviewed old records, reviewed results, re-evaluated patient, considered differential, d/w patient ED course: unremarkable tests including blood tests and RUQ US (nonobstructing renal stones on right, no etiology for current symptoms noted). She reported minimal improvement after IM toradol (IV had not been ordered because patient says she has been a difficult stick in the past and she strongly prefers to avoid an IV if possible). I discussed other options for pain control; she strongly prefers PO medication and then d/c without waiting to see if PO medication works adequately. As she is not in obvious painful distress and her test results are reassuring, this is a reasonable option. Given take-home percocet with rx for same, as well as rx for zofran and more PO viscous lidocaine (she ran out of the previous prescription). I encouraged her to return if worse; differential diagnosis includes PUD and I explained that this would not be apparent on ED testing. She says she has an appointment arranged with a new PMD but the soonest appointment available was in 2 weeks. Departure - Departure Disposition: 01 Home, Self Care Clinical Impression: Abdominal pain Qualifiers: Abdominal location: upper abdomen, unspecified Qualified Code(s): R10.10 - Upper abdominal pain, unspecified Vomiting Qualifiers: Vomiting type: unspecified Vomiting Intractability: non-intractable Nausea presence: with nausea Qualified Code(s): R11.2 - Nausea with vomiting, unspecified Condition: Good Instructions: ED Abdominal Pain Unkn Cause, ED Nausea Vomiting Prescriptions: Lidocaine HCl [Lidocaine HCl Viscous] 15 ml PO QID PRN #100 ml PRN Reason: Abdominal Pain oxyCODONE [Roxicodone] 5 - 10 mg PO Q6H PRN #14 tablet PRN Reason: Pain Ondansetron Odt [Zofran] 4 mg TL Q6H PRN #10 tablet PRN Reason: Nausea / Vomiting Discharge Date/Time: 09/27/19 00:40
[2019-09-26 21:09] LABS: BILIRUBIN,URINE NEGATIVE (NEGATIVE); GLUCOSE, URINE (UA) NEGATIVE (NEGATIVE); KETONES,URINE (UA) NEGATIVE (NEGATIVE); LEUKOCYTE ESTERASE, URINE NEGATIVE (NEGATIVE); NITRITE,URINE NEGATIVE (NEGATIVE); OCCULT BLOOD,URINE TRACE-INTA (NEGATIVE); PH,URINE 6.5 PH (5.0-7.5); PROTEIN,URINE NEGATIVE (NEGATIVE); UROBILINOGEN,URINE 0.2 (NORMAL) E.U./dL (NORMAL)
[2019-09-26 21:11] LABS: CLARITY,URINE CLEAR (CLEAR); HCG UR QUAL NEGATIVE
[2019-09-26] MEDS ORDERED: KETOROLAC 60 MG/2 ML VIAL IM STA (21:22)
[2019-09-26] MEDS ORDERED: ONDANSETRON ODT 4 MG TABLET TL STA (21:22)
[2019-09-26 21:45] LABS: BASOPHILS # (AUTO) 0.1 10^3/uL (0.0-0.1); BASOPHILS % (AUTO) 0.7 %; EOSINOPHILS # (AUTO) 1.3 10^3/uL (0.0-0.7); HGB - HEMOGLOBIN 14.7 g/dL (12.0-16.0); LYMPHOCYTES # (AUTO) 3.1 10^3/uL (1.5-3.5); LYMPHOCYTES % (AUTO) 29.3 %; MEAN CORPUSCULAR HEMOGLOBIN 29.5 pg (27.0-31.0); MEAN CORPUSCULAR VOLUME 89.6 fL (81.0-99.0); MEAN PLATELET VOLUME 9.4 fL (7.9-10.8); MONOCYTES # (AUTO) 0.6 10^3/uL (0.0-1.0); NEUTROPHILS # (AUTO) 5.4 10^3/uL (1.5-6.6); NEUTROPHILS % (AUTO) 51.6 %; PLT - PLATELET COUNT 303 10^3/uL (130-450); RED BLOOD COUNT 4.98 10^6/uL (4.20-5.40); RED CELL DISTRIBUTION WIDTH 13.2 % (12.0-15.0); WHITE BLOOD COUNT 10.5 x10^3/uL (4.8-10.8)
[2019-09-26 21:58] LABS: ALBUMIN 4.1 g/dL (3.2-5.5); ALBUMIN/GLOBULIN RATIO 1.2 (1.0-2.2); BILIRUBIN,TOTAL 0.9 mg/dL (0.2-1.0); CALCIUM 9.5 mg/dL (8.5-10.3); CREATININE 0.8 mg/dL (0.4-1.0); TOTAL PROTEIN 7.6 g/dL (6.7-8.2)
[2019-09-26 22:20] LABS: DIFFERENTIAL COMMENT MANUAL=AUTO DIFF; PLATELET ESTIMATE, MANUAL NORMAL (130-450,000) (NORMAL); RBC MORPHOLOGY (MULTIPLE) NORMAL APPEARANCE (NORMAL)
[2019-09-27] MEDS ORDERED: ONDANSETRON ODT 4 MG TABLET TL STA (00:28)
[2019-09-27] MEDS ORDERED: oxyCODONE/ACET 5/325 Prepack 4 PO STA (00:28)
[2019-09-27 00:37] VITALS: BP 135/98
--- NOTE | 2019-09-27 08:40 | Ultrasound Report ---
PROCEDURE: Abdomen Limited INDICATIONS: abd. pain TECHNIQUE: Real-time focused scanning was performed of the abdomen, with image documentation. COMPARISON: CT abdomen 11/03/2018 and prior ultrasound abdomen 11/21/2017. FINDINGS: The liver is mildly heterogeneous in echotexture, without identified focal mass lesion. No intrahepatic biliary distention is found in the liver length is normal at 13.2 cm craniocaudad. The gallbladder is contracted, which limits gallbladder evaluation likely secondary to having eaten a pproximately 3 hours prior to the examination. The gallbladder wall at 3.5 mm is considered normal co nsidering contracted status. The adjacent bile ducts near the gallbladder and pancreatic head area me asured between 2 and 4.2 mm. The pancreatic visualization is limited by bowel gas. The right kidney previously on CT scanning that show right-sided hydronephrosis and a right-sided col lecting system calculus. Currently there is an echogenic area measuring approximately 1.1 cm in short axis dimension which may reflect a partially calcified cyst seen in that same area on CT scanning. A lso, a smaller echogenic focus at the mid kidney more laterally measures 7 mm. IMPRESSION: Mildly coarse liver echotexture may reflect underlying fatty infiltration. No focal liver lesions see n. No gallstones or biliary distention found. Quality of visualization is somewhat limited by bowel g as. Nonobstructive renal calculus and faintly calcified small presumed cyst are incidentally noted on the right. Bowel gas obscures clear visualization of significant portions of the abdomen and depending on the cl inical status if unusual symptoms persist follow-up by CT scanning may be warranted. Reviewed by: Gurpreet Daniels MD on 09/27/2019 8:38 AM PDT Approved by: Gurpreet Daniels MD on 09/27/2019 8:38 AM PDT Station ID: [id number]
== END 2019-09-27 00:40 | disposition home or self-care (01) ==
LOC: ED 20:01
DX: R10.10 Upper abdominal pain, unspecified (principal); R11.2 Nausea with vomiting, unspecified
CPT/HCPCS: 36415; 76705; 80053; 81003; 81025; 83690; 85025; 96372; 99284; Q0162; 81001; 87086

== ENCOUNTER 2019-12-18 19:16 | Emergency (ER) | payer MEDICAID ==
[2019-12-18] MEDS ORDERED: KETOROLAC 60 MG/2 ML VIAL IM STA (19:44)
--- NOTE | 2019-12-18 19:48 | ED Physician Documentation ---
History of Present Illness - Stated complaint Stated Complaint: CHEST/RIBS/ABD PX - Chief complaint Chief Complaint: Back Pain - History obtained from History obtained from: Patient - History of Present Illness Timing: Prior to arrival, How many days ago (2) - Additonal information Additional information: 49-year-old female presents to the emergency department for evaluation of anterior chest pain and blunt trauma. She reports that 2 days ago she was preparing to clean a hot tub and she was standing above it on a ladder about 3 feet and she slipped falling directly onto her chest and abdomen. She denies any loss of consciousness though felt that her wind was knocked out of her. She vomited twice immediately afterwards. Since then she is reported pain with deep inspiration and is worried that she may have a fractured her ribs. She has had no hemoptysis fever or cough. No vomiting since the initial incident. Denies abdominal pain diarrhea dysuria. Patient has taken Tylenol for analgesia with minimal relief. States that she cannot take NSAIDs secondary to history of gastric ulcer Review of Systems Constitutional: reports: Reviewed and negative Eyes: reports: Reviewed and negative Ears: reports: Reviewed and negative Nose: reports: Reviewed and negative Throat: reports: Reviewed and negative Cardiac: reports: Chest pain / pressure (anterior sterum). denies: Palpitations , Pedal edema Respiratory: denies: Dyspnea, Cough, Hemoptysis, Wheezing GI: reports: Abdominal Pain. 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 - Present Medications Home Medications: Ambulatory Orders Medication Instructions Recorded Confirmed Lidocaine HCl [Lidocaine HCl 15 ml PO QID #100 ml 09/13/19 Viscous] Lidocaine HCl [Lidocaine HCl 15 ml PO QID PRN #100 ml 09/27/19 Viscous] Ondansetron Odt [Zofran] 4 mg TL Q6H PRN #10 tablet 09/27/19 oxyCODONE [Roxicodone] 5 - 10 mg PO Q6H PRN #14 tablet 09/27/19 - Allergies Allergies/Adverse Reactions: Allergies Allergy/AdvReac Type Severity Reaction Status Date / Time No Known Drug Allergies Allergy Verified 12/18/19 19:29 - Social History Does the pt smoke?: No Smoking Status: Never smoker Does the pt drink ETOH?: No Does the pt have substance abuse?: No - Immunizations Immunizations are current?: Yes - POLST Patient has POLST: No PD ED PE EXPANDED - General General: Alert, No acute distress, Anxious, In Pain - HEENT HEENT: PERRL - Neck Neck: Supple w/out meningeal sx. No: Bruit present, Adenopathy - Cardiac Cardiac: Regular Rate, Radial strong equal, Pedal strong equal, Cap refill < 2 sec. No: Murmur Present - Respiratory Respiratory: Clear to ausultation shawn. No: Distress, Labored, Gasping - Abdomen Abdomen: Normal Bowel sounds, Tender to palpation (Tender to deep palpation upper epigastrium. Worse with deep inspiration) - Back Back: Normal exam, Normal ROM, Other (Tenderness to palpation of the sternum and xiphoid process without crepitus ecchymosis. Patient able to take a full deep breath but reports pain in the diaphragm area). No: Vertebral tenderness, Soft tissue tenderness, CVA TTP right, CVA TTP left - Derm Derm: Normal color, Warm and dry. No: Abrasion (s), Bruising - Extremities Extremities: Normal - Neuro Neuro: Alert and Oriented X 3, CNII-XII intact Results - Vitals Vitals: Vital Signs - 24 hr 12/18/19 12/18/19 19:27 19:59 Temperature 36.9 C Heart Rate 95 90 Respiratory 17 22 Rate Blood Pressure 150/101 H 144/89 H O2 Saturation 98 100 Oxygen O2 Source Room air - Rads (name of study) CT chest Radiology: Final report received (Sternum is intact. No rib fractures. 3 mm nodule in the anterior right lung base. Right renal stones and renal cortical scars. No hydronephrosis.) PD MEDICAL DECISION MAKING - ED course Complexity details: reviewed results, re-evaluated patient, considered differential, d/w patient, d/w family ED course: 49-year-old female presents to the emergency department for evaluation of acute anterior chest wall and sternum pain after a fall of about 3 feet onto a hot tub [address] was completed to rule out sternal or rib fractures and none were evident. There was an incidental finding of a 3 mm nodule in the right lung base. This finding was discussed with the patient and advised follow-up for repeat imaging with primary in 6 to 12 months. Patient did have good relief of pain following Toradol here in the emergency department but unfortunately cannot take NSAID medications orally. I will recommend that she continue to take Tylenol at home. Emergent return precautions discussed for worsening symptoms Departure - Departure Disposition: Home, Self Care Clinical Impression: Pain of sternum, Pulmonary nodule Fall Qualifiers: Encounter type: initial encounter Qualified Code(s): W19.XXXA - Unspecified fall, initial encounter Condition: Stable Record reviewed to determine appropriate education?: Yes Instructions: ED Contusion Chest Wall Ch Comments: Samantha the CT of your chest did not show any broken bones in your ribs or your sternum. Your diaphragm was intact. Your lungs are fully inflated. You most likely have a contusion of your chest wall after the fall. Please continue to take the Tylenol at home for pain. There was an incidental finding of a 3 mm nodule in your right lung. We do recommend that you follow-up with your primary care provider for reevaluation and repeat imaging at approximately 12 months. You are considered a low risk patient.Samantha the CT of your chest did not show any broken bones in your ribs or your sternum. Your diaphragm was intact. Your lungs are fully inflated. You most likely have a contusion of your chest wall after the fall. Please continue to take the Tylenol at home for pain. There was an incidental finding of a 3 mm nodule in your right lung. We do recommend that you follow-up with your primary care provider for reevaluation and repeat imaging at approximately 12 months. You are considered a low risk patient. If you develop bloody sputum, have difficulty breathing, cannot catch her breath or feel that your symptoms are not improving or you have black or bloody stools then please return to the emergency department for a second evaluation
--- NOTE | 2019-12-18 20:24 | CT Report ---
PROCEDURE: CHEST WO INDICATIONS: blunt trauma to chest; r/o sternal/rib fx TECHNIQUE: Noncontrast 5 mm thick sections acquired from the pulmonary apices to the posterior costophrenic angl es. 7 mm thick coronal and sagittal MIP reformats were then acquired. For radiation dose reduction, the following was used: automated exposure control, adjustment of mA and/or kV according to patient size. COMPARISON: CT abdomen and pelvis without contrast, 11/03/2018 FINDINGS: Image quality: Excellent. Lungs and pleura: No acute air space opacities. There is a 3 mm nodule in the anterior right costop hrenic angle. No pleural effusions or pneumothorax. Central and peripheral airways are patent and no rmal in caliber. Mediastinum: No mediastinal hematoma. Heart size is normal. No pericardial effusion. No mediastina l adenopathy by size criteria. Thoracic aorta and central pulmonary arteries are normal in size. Es ophagus is normal in caliber. No hiatal hernia. Bones and chest wall: Sternum is intact. No suspicious bony lesions. No vertebral body compression fractures. Moderate degenerative changes in thoracic spine. No axillary or supraclavicular adenopath y by size criteria. The thyroid is normal in size. Note is made of bilateral breast implants. Abdomen: There are multiple right renal stones. No hydronephrosis. There are cortical scar in the upp er pole right kidney. IMPRESSION: 1. Sternum is intact. 2. A 3 mm nodule in the anterior right lung base. Please see enclosed follow-up recommendation. 3. Right renal stones and renal cortical scars. No hydronephrosis. Fleischner Society criteria for SOLID lung nodule followup. Nodule size (mm) Low-risk patient High-risk patient ?4 No follow-up needed Follow-up at 12 mo; if no change, no further follow-up >4-[address] Follow-[address] at 12 mo; if no change, no further follow-up needed. Initial follow-up CT at 6-12 mo, then 18-24 mo if no change. >6-8 Initial follow-up CT at 6-12 mo, then 18-24 mo if no change. Initial follow-up CT at 3-6 mo, then 9-12 mo and 24 mo if no change. >8 Follow-up CT at 3, 9, 24 mo. Or PET and/or biopsy. Same as for low-risk pts. Reviewed by: Franc Jones MD on 12/18/2019 8:23 PM PDT Approved by: Franc Jones MD on 12/18/2019 8:23 PM PDT Station ID: [id number]
[2019-12-18 20:49] VITALS: BP 127/95
== END 2019-12-18 20:54 | disposition home or self-care (01) ==
LOC: ED 19:16
DX: R07.89 Other chest pain (principal); W11.XXXA Fall on and from ladder, initial encounter; Y93.89 Activity, other specified; R91.1 Solitary pulmonary nodule; N20.0 Calculus of kidney
CPT/HCPCS: 71250; 96372; 99284

== ENCOUNTER 2020-02-13 18:01 | Emergency (ER) | payer MEDICAID ==
[2020-02-13 18:26] LABS: BASOPHILS # (AUTO) 0.1 10^3/uL (0.0-0.1); BASOPHILS % (AUTO) 0.6 %; EOSINOPHILS # (AUTO) 0.4 10^3/uL (0.0-0.7); EOSINOPHILS % (AUTO) 3.8 %; HGB - HEMOGLOBIN 14.7 g/dL (12.0-16.0); LYMPHOCYTES # (AUTO) 3.1 10^3/uL (1.5-3.5); LYMPHOCYTES % (AUTO) 26.1 %; MEAN CORPUSCULAR HEMOGLOBIN 28.9 pg (27.0-31.0); MEAN CORPUSCULAR HGB CONC 32.2 g/dL (32.0-36.0); MEAN CORPUSCULAR VOLUME 89.6 fL (81.0-99.0); MEAN PLATELET VOLUME 9.7 fL (7.9-10.8); MONOCYTES # (AUTO) 0.6 10^3/uL (0.0-1.0); MONOCYTES % (AUTO) 5.1 %; NEUTROPHILS # (AUTO) 7.5 10^3/uL (1.5-6.6); NEUTROPHILS % (AUTO) 63.8 %; PLT - PLATELET COUNT 318 10^3/uL (130-450); RED BLOOD COUNT 5.09 10^6/uL (4.20-5.40); RED CELL DISTRIBUTION WIDTH 13.7 % (12.0-15.0); WHITE BLOOD COUNT 11.7 x10^3/uL (4.8-10.8)
[2020-02-13 18:45] LABS: ALBUMIN/GLOBULIN RATIO 1.1 (1.0-2.2); BILIRUBIN,TOTAL 0.7 mg/dL (0.2-1.0); CALCIUM 9.4 mg/dL (8.5-10.3); CREATININE 0.9 mg/dL (0.4-1.0); TOTAL PROTEIN 7.7 g/dL (6.7-8.2)
[2020-02-13] MEDS ORDERED: HYDROmorphone 1 MG/ML CARPUJECT IVP STA ×2 (19:07→20:02)
--- NOTE | 2020-02-13 19:12 | ED Physician Documentation ---
PD HPI CHEST PAIN - Stated complaint Stated Complaint: CP - Chief complaint Chief Complaint: Cardiac - History obtained from History obtained from: Patient - History of Present Illness Quality: Pressure, Sharp Location: Left chest Radiation: Left upper extremity Improved by: Nothing Worsened by: No: Exertion Associated symptoms: No: Shortness of air, Diaphoresis, Nausea, Vomiting, General Weakness Similar symptoms before: Has not had sx before - Additional information Additional information: 49-year-old female presents to the emergency department for evaluation of nearly 24 hours constant chest pressure that radiates to her left arm. She has had also intermittent sharp pains that will radiate down her chest. She denies that the chest discomfort is exertional. She does endorse 4 days of a cough that is mostly dry. She has no tobacco history. She has no history of hormone use, recent travel, unilateral leg swelling or history of DVT/cancer. Family history is significant for myocardial infarction in her father at 55 years of age. She also reports that her biological son did have a myocardial infarction at 15 years of age in which he did sustain damage to the left ventricle. Patient reports that about 8 or 9 months ago she was diagnosed with mild hypertension. She has not yet taking medication for this. Her primary care provider is recommending diet modifications as Review of Systems Constitutional: reports: Reviewed and negative Cardiac: reports: Chest pain / pressure. denies: Palpitations, Pedal edema, Calf pain Respiratory: denies: Dyspnea, Cough, Hemoptysis, Wheezing GI: reports: Abdominal Pain, Abdominal Swelling, Nausea, Vomiting : denies: Dysuria, Frequency Skin: denies: Rash, Lesions Musculoskeletal: reports: Extremity pain. 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 - Present Medications Home Medications: Ambulatory Orders Medication Instructions Recorded Confirmed Cyclobenzaprine [Flexeril] 10 mg ORAL TID PRN 02/13/20 02/13/20 - Allergies Allergies/Adverse Reactions: Allergies Allergy/AdvReac Type Severity Reaction Status Date / Time No Known Drug Allergies Allergy Verified 11/25/20 18:06 - Social History Does the pt smoke?: No Smoking Status: Never smoker Does the pt drink ETOH?: No Does the pt have substance abuse?: No - Immunizations Immunizations are current?: Yes - POLST Patient has POLST: No PD ED PE EXPANDED - General General: Alert, No acute distress, Other (obese) - HEENT HEENT: PERRL, EOMI - Eyes Eyes: PERRL - Neck Neck: No tenderness. No: Adenopathy - Cardiac Cardiac: Regular Rate, Regular Rhythm, Radial strong equal, Pedal strong equal, Cap refill < 2 sec. No: Murmur Present - Respiratory Respiratory: Clear to ausultation shawn. No: Distress, Labored - Abdomen Abdomen: Normal Bowel sounds. No: Tender to palpation - Derm Derm: Normal color. No: Rash - Neuro Neuro: Alert and Oriented X 3, CNII-XII intact - GCS Eye Opening: Spontaneous Motor: Obeys Commands Verbal: Oriented Total: 15 Results - Vitals Vitals: Vital Signs - 24 hr 02/13/20 02/13/20 18:06 19:54 Temperature 37 C 37.1 C Heart Rate 109 H 87 Respiratory 22 16 Rate Blood Pressure 149/100 H 131/91 H O2 Saturation 100 99 Oxygen O2 Source Room air - EKG (time done) 1807 Rate: Rate (enter#) (94) Rhythm: NSR [place]: Normal Intervals: Normal SC QRS: Normal Ischemia: Normal ST segments Compare to prior EKG: Old EKG unavailable Computer interpretation: Agree with computer - Labs Labs: Laboratory Tests 02/13/20 02/13/20 02/13/20 16:16 18:20 18:20 WBC 11.7 H RBC 5.09 Hgb 14.7 Hct 45.6 MCV 89.6 MCH 28.9 MCHC 32.2 RDW 13.7 Plt Count 318 MPV 9.7 Neut # (Auto) 7.5 H Lymph # (Auto) 3.1 Lares # (Auto) 0.6 Eos # (Auto) 0.4 Baso # (Auto) 0.1 Absolute Nucleated RBC 0.00 Nucleated RBC % 0.0 Sodium 138 Potassium 3.9 Chloride 102 Carbon Dioxide 26 Anion Gap 10.0 BUN 17 Creatinine 0.9 Estimated GFR (MDRD) 67 L Glucose 113 H Calcium 9.4 Total Bilirubin 0.7 AST 18 ALT 19 Alkaline Phosphatase 91 Troponin I High Sens Total Protein 7.7 Albumin 4.0 Globulin 3.7 Albumin/Globulin Ratio 1.1 Lipase 33 HCG, Quant Urine Color Cancelled Urine Clarity Cancelled Urine pH Cancelled Ur Specific [place] Cancelled Urine Protein Cancelled Urine Glucose (UA) Cancelled Urine Ketones Cancelled Urine Occult Blood Cancelled Urine Nitrite Cancelled Urine Bilirubin Cancelled Urine Ictotest Cancelled Urine Urobilinogen Cancelled Ur Leukocyte Esterase Cancelled Urine RBC Cancelled Urine WBC Cancelled Urine WBC Clumps Cancelled Ur Epithelial Cells Cancelled Ur Squamous Epith Cells Cancelled Urine Crystals Cancelled Amorphous Sediment Cancelled Urine Bacteria Cancelled Urine Casts Cancelled Urine Starch Cancelled Urine Mucus Cancelled Urine Trichomonas Cancelled Urine Yeast Cancelled Urine Sperm Cancelled Ur Oval Fat Bodies Cancelled Urine Culture Comments Cancelled Urine Opiates Screen Cancelled Ur Oxycodone Screen Cancelled Urine Methadone Screen Cancelled Ur Propoxyphene Screen Cancelled Ur Barbiturates Screen Cancelled Ur Tricyclics Screen Cancelled Ur Phencyclidine Scrn Cancelled Ur Amphetamine Screen Cancelled U Methamphetamines Scrn Cancelled U Benzodiazepines Scrn Cancelled Urine Cocaine Screen Cancelled U Cannabinoids Screen Cancelled 02/13/20 02/13/20 18:20 18:20 WBC RBC Hgb Hct MCV MCH MCHC RDW Plt Count MPV Neut # (Auto) Lymph # (Auto) Lares # (Auto) Eos # (Auto) Baso # (Auto) Absolute Nucleated RBC Nucleated RBC % Sodium Potassium Chloride Carbon Dioxide Anion Gap BUN Creatinine Estimated GFR (MDRD) Glucose Calcium Total Bilirubin AST ALT Alkaline Phosphatase Troponin I High Sens 2.7 Total Protein Albumin Globulin Albumin/Globulin Ratio Lipase HCG, Quant < 0.60 Urine Color Urine Clarity Urine pH Ur Specific [place] Urine Protein Urine Glucose (UA) Urine Ketones Urine Occult Blood Urine Nitrite Urine Bilirubin Urine Ictotest Urine Urobilinogen Ur Leukocyte Esterase Urine RBC Urine WBC Urine WBC Clumps Ur Epithelial Cells Ur Squamous Epith Cells Urine Crystals Amorphous Sediment Urine Bacteria Urine Casts Urine Starch Urine Mucus Urine Trichomonas Urine Yeast Urine Sperm Ur Oval Fat Bodies Urine Culture Comments Urine Opiates Screen Ur Oxycodone Screen Urine Methadone Screen Ur Propoxyphene Screen Ur Barbiturates Screen Ur Tricyclics Screen Ur Phencyclidine Scrn Ur Amphetamine Screen U Methamphetamines Scrn U Benzodiazepines Scrn Urine Cocaine Screen U Cannabinoids Screen - Rads (name of study) CT angio Radiology: Final report received (No pulmonary embolism. No acute airspace opacity. No pleural effusion.) PD MEDICAL DECISION MAKING - ED course Complexity details: reviewed results, re-evaluated patient, considered differential, d/w patient ED course: 49-year-old female presents to the emergency department for evaluation of 24 hours chest pain and pressure that she feels radiates to her left arm. She did have pleuritic pain with deep breath on exam but had otherwise denied it. Pain is worse with movement. Her family history is strong for myocardial infarction at 55 and her father as well as her son who had a heart attack at 15 years of age. - EKG today is sinus rhythm without any ischemic changes. High-sensitivity troponin is negative. Electrolytes and CBC otherwise unremarkable. However given the pleuritic component as well as the history of myocardial infarction in her son we did proceed with CT angio of the chest to rule out an atypical presentation for pulmonary embolus. CT angio of her chest was negative for acute findings. Her HEART score is 3, making her low risk for 3 month MACE. I advised close f/u with pcp, consider outpatient stress test or echo. - She was given 1 mg of Dilaudid here in the ER with marked relief of pain though it was braiding machine tender especially with movement. She denies any inciting injury though I suspect she may have a musculoskeletal strain at this time. I have advised Tylenol and warm compress as well as the use of her muscle relaxer at home. Emergent and worrisome return precautions were discussed Departure - Departure Disposition: 01 Home, Self Care Clinical Impression: Chest pain Qualifiers: Chest pain type: unspecified Qualified Code(s): R07.9 - Chest pain, unspecified Condition: Stable Record reviewed to determine appropriate education?: Yes Instructions: ED Chest Pain [facility] Follow-Up: JOSESITO PETERS, MSN, FORECLOSURE CLERK [Primary Care Provider] - Comments: Samantha your chest x-ray, EKG and labs today are all essentially normal. It does not appear that you are having a heart attack. However given your strong family history for heart disease I do advise you to have close follow-up with your primary care doctor. They may want to consider referral to a foreign food specialty cook or order outpatient stress testing. We did proceed with a pulmonary angiogram of the chest to rule out a Pulmonary embolism. The exam was unremarkable for any worrisome findings. It is not clear what the cause of your chest pain and pressure is at this time. It may be a sore or strained muscle. I do recommend that you take Tylenol as well as your muscle relaxer at home. If at any point you have worsening pain, cannot catch her breath, develop fevers or any fainting episodes or have a racing heart please return immediately to the ER
[2020-02-13] MEDS ORDERED: IOVERSOL 320 100 ML VIAL IVP ONE ×2 (19:25→19:42)
--- NOTE | 2020-02-13 19:31 | XRAY Report ---
PROCEDURE: Chest 1 View X-Ray INDICATIONS: Chest Pain TECHNIQUE: One view of the chest was acquired. COMPARISON: CT chest 12/18/2019. CXR 04/02/2017. FINDINGS: Surgical changes and devices: None. Lungs and pleura: No pleural effusions or pneumothorax. Lungs are clear. Mediastinum: Mediastinal contours appear normal. Heart size is normal. Bones and chest wall: No suspicious bony lesions. Overlying soft tissues appear unremarkable. IMPRESSION: No acute cardiopulmonary abnormality. Reviewed by: Twin Lombardi MD on 02/13/2020 7:30 PM PST Approved by: Twin Lombardi MD on 02/13/2020 7:30 PM PST Station ID: [id number]
--- NOTE | 2020-02-13 19:51 | CT Report ---
PROCEDURE: ANGIO CHEST W/WO INDICATIONS: pleauritic chest pain pressure CONTRAST: IV CONTRAST: Optiray 320 ml: 100 PO CONTRAST: *NO PO CONTRAST TECHNIQUE: After the administration of intravenous contrast, 2 mm thick sections acquired from the pulmonary api serafin to the posterior costophrenic angles. 3-dimensional maximum intensity projection (MIP) coronal a nd sagittal reformats were then acquired through the thorax. For radiation dose reduction, the follow ing was used: automated exposure control, adjustment of mA and/or kV according to patient size. COMPARISON: CT chest 12/18/2019. FINDINGS: Image quality: Excellent. Pulmonary arteries: Pulmonary arteries are normal in size, and demonstrate no intraluminal filling d efects to suggest central pulmonary embolism. Lungs and pleura: Lungs are clear. No pleural effusions or pneumothorax. Central and peripheral ai rways are patent. Mediastinum: Heart size is normal, without pericardial effusion. No mediastinal or hilar adenopathy . Thoracic aorta is normal in caliber and enhancement. Esophagus is normal in caliber, without hiat al hernia. Bones and chest wall: No suspicious bony lesions. Ribs and thoracic spine appear intact throughout. The thyroid is normal. No axillary or supraclavicular adenopathy. Bilateral breast implants. Abdomen: Visualized upper abdominal solid organs appear normal in the early arterial phase of enhanc ement. IMPRESSION: No pulmonary embolism. No acute airspace opacity. No pleural effusion. Reviewed by: Twin Lombardi MD on 02/13/2020 7:50 PM [facility] Approved by: Twin Lombardi MD on 02/13/2020 7:50 PM PST Station ID: [id number]
[2020-02-13] MEDS ORDERED: ONDANSETRON ODT 4 MG TABLET TL STA (20:42)
[2020-02-13 21:05] VITALS: BP 130/77
== END 2020-02-13 21:04 | disposition home or self-care (01) ==
LOC: ED 18:01
DX: R07.89 Other chest pain (principal); I10 Essential (primary) hypertension; Z82.49 Family history of ischemic heart disease and other diseases of the circulatory system; Z20.828 Contact with and (suspected) exposure to other viral communicable diseases; E66.9 Obesity, unspecified
CPT/HCPCS: 36415; 71045; 71275; 80053; 83690; 84484; 84702; 85025; 87635; 93005; 96374; 96376; 99284; J1170; Q0162; Q9967; 80306; 81001; 87086

== ENCOUNTER 2020-04-11 14:43 | Outpatient (CLI) | payer MEDICAID | END 2020-04-11 14:44 | disposition home or self-care (01) | LOC: COV 14:43 | PROVIDERS: ATTEND Specialist | DX: Z01.812 Encounter for preprocedural laboratory examination (principal); R10.84 Generalized abdominal pain; Z20.822 Contact with and (suspected) exposure to COVID-19 ==

== ENCOUNTER 2020-04-26 20:21 | Emergency (ER) | payer MEDICAID ==
[2020-04-26 21:03] LABS: BASOPHILS # (AUTO) 0.1 10^3/uL (0.0-0.1); BASOPHILS % (AUTO) 0.6 %; EOSINOPHILS # (AUTO) 0.3 10^3/uL (0.0-0.7); EOSINOPHILS % (AUTO) 2.6 %; HCT - HEMATOCRIT 46.1 % (37.0-47.0); HGB - HEMOGLOBIN 14.7 g/dL (12.0-16.0); LYMPHOCYTES # (AUTO) 3.5 10^3/uL (1.5-3.5); LYMPHOCYTES % (AUTO) 35.2 %; MEAN CORPUSCULAR HEMOGLOBIN 28.9 pg (27.0-31.0); MEAN CORPUSCULAR HGB CONC 31.9 g/dL (32.0-36.0); MEAN CORPUSCULAR VOLUME 90.7 fL (81.0-99.0); MEAN PLATELET VOLUME 9.9 fL (7.9-10.8); MONOCYTES # (AUTO) 0.5 10^3/uL (0.0-1.0); MONOCYTES % (AUTO) 5.2 %; NEUTROPHILS # (AUTO) 5.6 10^3/uL (1.5-6.6); NEUTROPHILS % (AUTO) 56.1 %; PLT - PLATELET COUNT 326 10^3/uL (130-450); RED BLOOD COUNT 5.08 10^6/uL (4.20-5.40); RED CELL DISTRIBUTION WIDTH 13.2 % (12.0-15.0)
[2020-04-26 21:11] LABS: ALBUMIN/GLOBULIN RATIO 1.2 (1.0-2.2); CALCIUM 9.5 mg/dL (8.5-10.3); CREATININE 0.8 mg/dL (0.4-1.0); POTASSIUM 4.1 mmol/L (3.5-5.0); TOTAL PROTEIN 7.4 g/dL (6.7-8.2)
[2020-04-26] MEDS ORDERED: SODIUM CHLORIDE 0.9% 1,000 ML IV STA ×2 (21:11→21:36)
[2020-04-26] MEDS ORDERED: MORPHINE 10 MG/ML VIAL IVP STA (21:11)
[2020-04-26] MEDS ORDERED: ONDANSETRON 4 MG/2 ML VIAL IVP STA ×2 (21:12→23:05)
--- NOTE | 2020-04-26 21:14 | ED Physician Documentation ---
History of Present Illness - Stated complaint Stated Complaint: ABD PX - Chief complaint Chief Complaint: Abd Pain - History obtained from History obtained from: Patient - Additonal information Additional information: 49-year-old woman with history of hiatal hernia status post endoscopy last week, past surgical history of 2 C-sections, presents with right lower quadrant abdominal pain gradual in onset starting around noon today, now severe associated with nausea but no vomiting, no chills or fevers or diarrhea. Pain is sharp, constant, radiating to the back, worse with movement. denies cp, sob. she does endorse some dysuria but says she had negative urinalysis at [facility] yesterday. 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, 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 - Present Medications Home Medications: Ambulatory Orders Medication Instructions Recorded Confirmed Cyclobenzaprine [Flexeril] 10 mg ORAL TID PRN 02/13/20 02/13/20 Ondansetron Odt [Zofran Odt] 4 mg PO Q6H PRN #8 tab 04/26/20 Oxycodone HCl/Acetaminophen 1 each PO Q6H PRN #10 tab 04/26/20 [Percocet 10-325 mg Tablet] Tamsulosin HCl [Flomax] 0.4 mg PO QDAC #14 tab 04/26/20 - Allergies Allergies/Adverse Reactions: Allergies Allergy/AdvReac Type Severity Reaction Status Date / Time No Known Drug Allergies Allergy Verified 02/13/20 18:06 - Social History Does the pt smoke?: No Smoking Status: Never smoker Does the pt drink ETOH?: No Does the pt have substance abuse?: No - Immunizations Immunizations are current?: Yes - POLST Patient has POLST: No PD ED PE NORMAL - Vitals Vital signs reviewed: Yes - General General: Alert and oriented X 3, Other (moderate distress) - HEENT HEENT: Atraumatic, PERRL - Neck Neck: Supple, no meningeal sign - Cardiac Cardiac: RRR, No murmur - Respiratory Respiratory: No respiratory distress, Clear bilaterally - Abdomen Abdomen: Other (RLQ ttp.) - Back Back: No CVA TTP, 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) - Derm Derm: Normal color - Extremities Extremities: No deformity - Neuro Neuro: Alert and oriented X 3 - Psych Psych: Normal mood, Normal affect Results - Vitals Vitals: Vital Signs - 24 hr 04/26/20 04/26/20 04/26/20 20:30 21:30 23:00 Temperature 37.6 C 37.6 C Heart Rate 83 75 81 Respiratory 16 16 15 Rate Blood Pressure 149/98 H 144/100 H 110/67 O2 Saturation 100 100 99 Oxygen O2 Source Room air - Labs Labs: Laboratory Tests 04/26/20 04/26/20 04/26/20 02:35 20:35 20:35 WBC 10.0 RBC 5.08 Hgb 14.7 Hct 46.1 MCV 90.7 MCH 28.9 MCHC 31.9 L RDW 13.2 Plt Count 326 MPV 9.9 Neut # (Auto) 5.6 Lymph # (Auto) 3.5 [place] # (Auto) 0.5 Eos # (Auto) 0.3 Baso # (Auto) 0.1 Absolute Nucleated RBC 0.00 Nucleated RBC % 0.0 Sodium 141 Potassium 4.1 Chloride 104 Carbon Dioxide 26 Anion Gap 11.0 BUN 18 Creatinine 0.8 Estimated GFR (MDRD) 77 L Glucose 103 H Lactic Acid Calcium 9.5 Total Bilirubin 1.0 AST 18 ALT 18 Alkaline Phosphatase 77 Total Protein 7.4 Albumin 4.0 Globulin 3.4 Albumin/Globulin Ratio 1.2 Lipase 29 Serum HCG, Qual NEGATIVE Urine Color Urine Clarity Urine pH Ur Specific [place] Urine Protein Urine Glucose (UA) Urine Ketones Urine Occult Blood Urine Nitrite Urine Bilirubin Urine Urobilinogen Ur Leukocyte Esterase Urine RBC Urine WBC Ur Squamous Epith Cells Urine Bacteria Ur Microscopic Review Urine Culture Comments 04/26/20 04/26/20 20:39 22:14 WBC RBC Hgb Hct MCV MCH MCHC RDW Plt Count MPV Neut # (Auto) Lymph # (Auto) [place] # (Auto) Eos # (Auto) Baso # (Auto) Absolute Nucleated RBC Nucleated RBC % Sodium Potassium Chloride Carbon Dioxide Anion Gap BUN Creatinine Estimated GFR (MDRD) Glucose Lactic Acid 0.9 Calcium Total Bilirubin AST ALT Alkaline Phosphatase Total Protein Albumin Globulin Albumin/Globulin Ratio Lipase Serum HCG, Qual Urine Color YELLOW Urine Clarity HAZY Urine pH 6.0 Ur Specific [place] 1.015 Urine Protein NEGATIVE Urine Glucose (UA) NEGATIVE Urine Ketones NEGATIVE Urine Occult Blood LARGE H Urine Nitrite NEGATIVE Urine Bilirubin NEGATIVE Urine Urobilinogen 0.2 (NORMAL) Ur Leukocyte Esterase NEGATIVE Urine RBC 11-25 H Urine WBC 0-3 Ur Squamous Epith Cells FEW Squamous Urine Bacteria Rare Ur Microscopic Review INDICATED Urine Culture Comments NOT INDICATED PD MEDICAL DECISION MAKING - ED course ED course: 49-year-old woman presents with severe right lower quadrant abdominal pain gradual in onset today. Will obtain CT, labs, treat symptomatically and reassess. Significant improvement with symptomatic care. ct showing 4mm kidney stone with minimal hydro. no significant bartolome or uti. will dc with outpatient follow up with urology. return precautions given. Departure - Departure Disposition: 01 Home, Self Care Clinical Impression: Kidney stone, Nausea and vomiting, Abdominal pain Condition: Good Instructions: Kidney Stones Prescriptions: Tamsulosin HCl [Flomax] 0.4 mg PO QDAC #14 tab Oxycodone HCl/Acetaminophen [Percocet 10-325 mg Tablet] 1 each PO Q6H PRN #10 tab PRN Reason: Pain Ondansetron Odt [Zofran Odt] 4 mg PO Q6H PRN #8 tab PRN Reason: Nausea / Vomiting Comments: You were seen in the emergency department for kidney stones. You do not have an infection at this time. Your kidney function was also normal. Return to the emergency department for any new or worsening symptoms or other concerns. Follow-up with urology [email or web address] [address] , [place] [address] ~21.7 ut
[2020-04-26] MEDS ORDERED: IOVERSOL 320 100 ML VIAL IVP ONE ×2 (21:34→22:14)
[2020-04-26] MEDS ORDERED: HYDROmorphone 1 MG/ML CARPUJECT IVP STA (21:34)
[2020-04-26] MEDS ORDERED: KETOROLAC 30 MG/ML VIAL IVP STA (21:35)
[2020-04-26 21:55] LABS: HCG,QUALITATIVE BLOOD NEGATIVE
[2020-04-26 22:28] LABS: BILIRUBIN,URINE NEGATIVE (NEGATIVE); GLUCOSE, URINE (UA) NEGATIVE (NEGATIVE); KETONES,URINE (UA) NEGATIVE (NEGATIVE); LEUKOCYTE ESTERASE, URINE NEGATIVE (NEGATIVE); NITRITE,URINE NEGATIVE (NEGATIVE); OCCULT BLOOD,URINE LARGE (NEGATIVE); PROTEIN,URINE NEGATIVE (NEGATIVE); UROBILINOGEN,URINE 0.2 (NORMAL) E.U./dL (NORMAL)
[2020-04-26 22:33] LABS: CLARITY,URINE HAZY (CLEAR)
[2020-04-26 22:43] LABS: BACTERIA,URINE Rare /HPF (None Seen); SQUAMOUS EPITHELIAL CELL,UR FEW Squamous (<= Few); WBC,URINE 0-3 /HPF (0-5)
[2020-04-26] MEDS ORDERED: oxyCODONE/ACET 5/325 Prepack 4 PO STA (23:33)
[2020-04-26 23:47] VITALS: BP 112/65
--- NOTE | 2020-04-27 08:01 | CT Report ---
PROCEDURE: Abdomen/Pelvis W INDICATIONS: RLQ pain CONTRAST: IV CONTRAST: Optiray 320 ml: 100 PO CONTRAST: *NO PO CONTRAST TECHNIQUE: After the administration of nonionic contrast, 5 mm thick sections acquired from the diaphragms to th e symphysis. 5 mm thick coronal and sagittal reformats were acquired. For radiation dose reduction, the following was used: automated exposure control, adjustment of mA and/or kV according to patient size. COMPARISON: 11/03/2018 FINDINGS: Image quality: Excellent. ABDOMEN: Lung bases: Lung bases are clear. Heart size is normal. Solid organs: Liver and spleen are normal in size and enhancement. Gallbladder unremarkable Biliar y system is non dilated. Pancreas enhances normally. No adrenal nodules. Cortical abnormality along the posterior lateral aspect of the superior pole of the right kidney is unchanged likely representi ng sequela of remote trauma/infection. There is rcul-kg-tephifcf moderate hydronephrosis on the right . A few nephroliths are noted the largest measuring 4 mm within the interpolar region of the right ki dney. No significant left-sided nephroliths. There is dilation of the right ureter. There is a 3 to 4 mm calcification within the distal right ureter just adjacent to the ureterovesicular junction. The left ureter is normal in course and caliber. Peritoneum and bowel: Bowel loops demonstrate normal wall thickness and caliber. No free fluid or a ir. Appendix is normal. Nodes and vessels: No retroperitoneal or mesenteric adenopathy by size criteria. Aorta and inferior vena cava are normal in size. Miscellaneous: Small fat-containing periumbilical hernia. Bilateral breast implants. PELVIS: Genitourinary: Bladder wall thickness is normal. Miscellaneous: No inguinal hernias or adenopathy. Bones: No suspicious bony lesions. Mild degenerative changes of the spine and hips. No vertebral mariela dy compression fractures. IMPRESSION: Obstructing distal right ureteral calcification measuring 3 to 4 mm resulting in mild to moderate hyd roureteronephrosis. Additional right-sided nonobstructing nephroliths. Agree with preliminary report. Reviewed by: Skinny Lynch DO on 04/27/2020 7:00 AM [facility] Approved by: Skinny Lynch DO on 04/27/2020 7:00 AM [facility] Station ID: [id number]
== END 2020-04-26 23:46 | disposition home or self-care (01) ==
LOC: ED 20:21
DX: N13.2 Hydronephrosis with renal and ureteral calculous obstruction (principal); I10 Essential (primary) hypertension
CPT/HCPCS: 36415; 74177; 80053; 81001; 83605; 83690; 84703; 85025; 96374; 96375; 96376; 99284; 99285; J1170; Q9967; 81003; 87086

== ENCOUNTER 2020-10-29 14:38 | Emergency (ER) | payer MEDICAID ==
[2020-10-29 15:25] LABS: BASOPHILS # (AUTO) 0.1 10^3/uL (0.0-0.1); BASOPHILS % (AUTO) 0.5 %; EOSINOPHILS # (AUTO) 0.3 10^3/uL (0.0-0.7); HCT - HEMATOCRIT 44.4 % (37.0-47.0); HGB - HEMOGLOBIN 14.6 g/dL (12.0-16.0); LYMPHOCYTES # (AUTO) 2.1 10^3/uL (1.5-3.5); LYMPHOCYTES % (AUTO) 23.1 %; MEAN CORPUSCULAR HEMOGLOBIN 29.4 pg (27.0-31.0); MEAN CORPUSCULAR HGB CONC 32.9 g/dL (32.0-36.0); MEAN CORPUSCULAR VOLUME 89.3 fL (81.0-99.0); MEAN PLATELET VOLUME 9.3 fL (7.9-10.8); MONOCYTES # (AUTO) 0.4 10^3/uL (0.0-1.0); MONOCYTES % (AUTO) 4.7 %; NEUTROPHILS # (AUTO) 6.3 10^3/uL (1.5-6.6); NEUTROPHILS % (AUTO) 68.4 %; PLT - PLATELET COUNT 276 10^3/uL (130-450); RED BLOOD COUNT 4.97 10^6/uL (4.20-5.40); RED CELL DISTRIBUTION WIDTH 13.5 % (12.0-15.0); WHITE BLOOD COUNT 9.1 x10^3/uL (4.8-10.8)
[2020-10-29 15:39] LABS: ALBUMIN/GLOBULIN RATIO 1.3 (1.0-2.2); BILIRUBIN,TOTAL 1.4 mg/dL (0.2-1.0); CALCIUM 9.2 mg/dL (8.5-10.3); CREATININE 0.8 mg/dL (0.4-1.0); POTASSIUM 3.7 mmol/L (3.5-5.0); TOTAL PROTEIN 7.2 g/dL (6.7-8.2)
--- NOTE | 2020-10-29 15:50 | ED Physician Documentation ---
PD HPI NVD - Stated complaint Stated Complaint: VOMITING/BACK/HEAD PX - Chief complaint Chief Complaint: Abd Pain - History obtained from History obtained from: Patient - History of Present Illness Timing - onset: How many days ago (3) Timing - duration: Days Timing - details: Abrupt onset (She states she got her first M[employer] Covid vaccine Tuesday morning which was 3 days ago and within 2 hours started feeling generally achy, nauseous, fatigued. This is continued for the last 3 days with general muscle aches, upper back pain, some dyspnea, nausea.), Still present Associated symptoms: Loss of appetite. No: Fever, Chest pain, Near syncope / syncope Similar symptoms before: Has not had sx before Recently seen: Clinic (got her Moderna vaccine 3 days ago and has felt badly since. Onset few hours after vaccine.) Review of Systems Constitutional: reports: Chills, Myalgias Nose: denies: Rhinorrhea / runny nose, Congestion Throat: denies: Sore throat Respiratory: reports: Dyspnea. denies: Cough GI: reports: Nausea, Vomiting. denies: Abdominal Pain, Diarrhea Skin: denies: Rash, Lesions Neurologic: reports: Generalized weakness, Headache. 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 - Present Medications Home Medications: Ambulatory Orders Medication Instructions Recorded Confirmed Cyclobenzaprine [Flexeril] 10 mg ORAL TID PRN 02/13/20 02/13/20 Ondansetron Odt [Zofran Odt] 4 mg PO Q6H PRN #8 tab 04/26/20 Oxycodone HCl/Acetaminophen 1 each PO Q6H PRN #10 tab 04/26/20 [Percocet 10-325 mg Tablet] Tamsulosin HCl [Flomax] 0.4 mg PO QDAC #14 tab 04/26/20 HYDROcod/ACETAM 5/325 [Harts 5/325] 1 ea PO Q6H PRN #12 tablet 10/29/20 Promethazine [Phenergan] 25 mg PO Q6H PRN #15 tablet 10/29/20 - Allergies Allergies/Adverse Reactions: Allergies Allergy/AdvReac Type Severity Reaction Status Date / Time No Known Drug Allergies Allergy Verified 10/29/20 14:44 - Social History Does the pt smoke?: No Smoking Status: Never smoker Does the pt drink ETOH?: No Does the pt have substance abuse?: No - Immunizations Immunizations are current?: Yes - POLST Patient has POLST: No PD ED PE NORMAL - Vitals Vital signs reviewed: Yes - General General: Alert and oriented X 3, Well developed/nourished, Other (appears feeling ill. ) Results - Vitals Vitals: Oxygen O2 Source Room air - Labs Labs: Laboratory Tests 10/29/20 10/29/20 10/29/20 15:17 15:17 15:52 WBC 9.1 RBC 4.97 Hgb 14.6 Hct 44.4 MCV 89.3 MCH 29.4 MCHC 32.9 RDW 13.5 Plt Count 276 MPV 9.3 Neut # (Auto) 6.3 Lymph # (Auto) 2.1 [place] # (Auto) 0.4 Eos # (Auto) 0.3 Baso # (Auto) 0.1 Absolute Nucleated RBC 0.00 Nucleated RBC % 0.0 Sodium 138 Potassium 3.7 Chloride 103 Carbon Dioxide 26 Anion Gap 9.0 BUN 17 Creatinine 0.8 Estimated GFR (MDRD) 77 L Glucose 110 H Calcium 9.2 Total Bilirubin 1.4 H AST 18 ALT 21 Alkaline Phosphatase 81 Total Protein 7.2 Albumin 4.0 Globulin 3.2 Albumin/Globulin Ratio 1.3 Lipase 25 Urine Color YELLOW Urine Clarity CLEAR Urine pH 5.0 Ur Specific [place] >=1.030 H Urine Protein NEGATIVE Urine Glucose (UA) NEGATIVE Urine Ketones TRACE Urine Occult Blood SMALL H Urine Nitrite NEGATIVE Urine Bilirubin NEGATIVE Urine Urobilinogen 0.2 (NORMAL) Ur Leukocyte Esterase NEGATIVE Urine RBC 0-5 Urine WBC 0-3 Ur Squamous Epith Cells FEW Squamous Urine Bacteria Rare Urine Mucus Few Strands Ur Microscopic Review INDICATED Urine Culture Comments NOT INDICATED Urine HCG, Qual Coronavirus (PCR) 10/29/20 10/29/20 15:52 16:41 WBC RBC Hgb Hct MCV MCH MCHC RDW Plt Count MPV Neut # (Auto) Lymph # (Auto) [place] # (Auto) Eos # (Auto) Baso # (Auto) Absolute Nucleated RBC Nucleated RBC % Sodium Potassium Chloride Carbon Dioxide Anion Gap BUN Creatinine Estimated GFR (MDRD) Glucose Calcium Total Bilirubin AST ALT Alkaline Phosphatase Total Protein Albumin Globulin Albumin/Globulin Ratio Lipase Urine Color Urine Clarity Urine pH Ur Specific [place] Urine Protein Urine Glucose (UA) Urine Ketones Urine Occult Blood Urine Nitrite Urine Bilirubin Urine Urobilinogen Ur Leukocyte Esterase Urine RBC Urine WBC Ur Squamous Epith Cells Urine Bacteria Urine Mucus Ur Microscopic Review Urine Culture Comments Urine HCG, Qual NEGATIVE Coronavirus (PCR) NEGATIVE PD MEDICAL DECISION MAKING - ED course Complexity details: re-evaluated patient (feeling improved enough after meds. She is concenred about COVID exposure recently and having COVID and not just vaccine reaction. ), considered differential (strong reaction to vaccine. She did not feel she was dehydrated so preferred not IV. But feeling ill and accepts IM meds. ), d/w patient Departure - Departure Disposition: 01 Home, Self Care Clinical Impression: Acute upper back pain Dyspnea Qualifiers: Dyspnea type: shortness of breath Qualified Code(s): R06.02 - Shortness of breath Nausea and vomiting Qualifiers: Vomiting type: unspecified Vomiting Intractability: non-intractable Qualified Code(s): R11.2 - Nausea with vomiting, unspecified Vaccine reaction Qualifiers: Encounter type: initial encounter Qualified Code(s): T50.Z95A - Adverse effect of other vaccines and biological substances, initial encounter Condition: Stable Record reviewed to determine appropriate education?: Yes Prescriptions: HYDROcod/ACETAM 5/325 [Harts 5/325] 1 ea PO Q6H PRN #12 tablet PRN Reason: Pain Promethazine [Phenergan] 25 mg PO Q6H PRN #15 tablet PRN Reason: Nausea / Vomiting Comments: Frequent fluids to stay well-hydrated. Activity as tolerated. Use the promethazine every 6 hours if needed for nausea over the next 2 to 3 days. To that add Tylenol ibuprofen if needed for pains or hydrocodone if needed for worse pain. I would anticipate improvement over the next couple more days. Follow-up if not improved in that timeframe and return to the ER if worsening. You have a Covid test pending. You need to self quarantine until the result is done and negative. Do not leave your house. Do not get near anybody. The results should be done in 48 to 72 hours, but sometimes longer. We will call wi th a positive result, the fastest way to get a negative result for confirmation though is to go to the hospital website at [email or web address], click on the my [employer] tab and sign up for the patient portal. If any friends or family get sick and would like to have a Covid test done, but do not have signs or symptoms that would necessitate being hospitalized, we encourage testing through our coronavirus swabbing station, call [phone] to schedule an appointment. Discharge Date/Time: 10/29/20 18:37
[2020-10-29 16:00] LABS: BILIRUBIN,URINE NEGATIVE (NEGATIVE); GLUCOSE, URINE (UA) NEGATIVE (NEGATIVE); KETONES,URINE (UA) TRACE mg/dL (NEGATIVE); LEUKOCYTE ESTERASE, URINE NEGATIVE (NEGATIVE); NITRITE,URINE NEGATIVE (NEGATIVE); OCCULT BLOOD,URINE SMALL (NEGATIVE); PROTEIN,URINE NEGATIVE (NEGATIVE); UROBILINOGEN,URINE 0.2 (NORMAL) E.U./dL (NORMAL)
[2020-10-29 16:03] LABS: CLARITY,URINE CLEAR (CLEAR); HCG UR QUAL NEGATIVE
[2020-10-29 16:06] LABS: BACTERIA,URINE Rare /HPF (None Seen); MUCUS,URINE Few Strands; RBC,URINE 0-5 /HPF (0-5); SQUAMOUS EPITHELIAL CELL,UR FEW Squamous (<= Few); WBC,URINE 0-3 /HPF (0-5)
[2020-10-29] MEDS ORDERED: HYDROmorphone 2 MG/ML VIAL IM STA (16:12)
[2020-10-29] MEDS ORDERED: ONDANSETRON ODT 4 MG TABLET TL STA (16:12)
[2020-10-29] MEDS ORDERED: DEXAMETHASONE 10 MG/ML VIAL PO STA (16:12)
[2020-10-29] MEDS ORDERED: KETOROLAC 30 MG/ML VIAL IM STA (16:12)
[2020-10-29] MEDS ORDERED: CHERRY SYRUP 10 ML UDC PO ONE (16:12)
--- NOTE | 2020-10-29 16:31 | XRAY Report ---
PROCEDURE: Chest 1 View X-Ray INDICATIONS: chest pain TECHNIQUE: One view of the chest was acquired. COMPARISON: 02/13/2020 FINDINGS: Surgical changes and devices: None. Lungs and pleura: No pleural effusions or pneumothorax. Lungs are clear. Mediastinum: Mediastinal contours appear normal. Heart size is normal. Bones and chest wall: No suspicious bony lesions. Overlying soft tissues appear unremarkable. IMPRESSION: 1. No acute cardiopulmonary disease. Reviewed by: Yaw Duron MD on 10/29/2020 4:30 PM PDT Approved by: Yaw Duron MD on 10/29/2020 4:30 PM PDT Station ID: [id number]
[2020-10-29] MEDS ORDERED: PROMETHAZINE 25 MG/1 ML VIAL IM STA (17:47)
[2020-10-29 18:09] VITALS: BP 122/83
== END 2020-10-29 18:37 | disposition home or self-care (01) ==
LOC: ED 14:38
DX: R11.0 Nausea (principal); M79.10 Myalgia, unspecified site; R53.83 Other fatigue; M54.6 Pain in thoracic spine; T50.Z95A Adverse effect of other vaccines and biological substances, initial encounter; I10 Essential (primary) hypertension
CPT/HCPCS: 36415; 71045; 80053; 81001; 81025; 83690; 85025; 87635; 96372; 99283; 99284; A9270; J1170; Q0162; 81003; 87086

== ENCOUNTER 2020-11-06 15:20 | Emergency (ER) | payer MEDICAID ==
[2020-11-06] MEDS ORDERED: ALBUTEROL NEB 2.5 MG/3 ML INH STA (16:21)
--- NOTE | 2020-11-06 16:25 | ED Physician Documentation ---
History of Present Illness - Stated complaint Stated Complaint: CP/BACK PX - Chief complaint Chief Complaint: General - History obtained from History obtained from: Patient - History of Present Illness Timing: Today Pain level max: 5 Pain level now: 4 - Additonal information Additional information: 50-year-old female presents to the emergency department with chest tightness and back pain. She feels like it starts in her mid thoracic and goes through to her chest. She states is been ongoing for the past week but feels worse now. She states it started about 30 minutes to an hour after receiving a Covid vaccination. No fevers. Mild dry cough. Worse with movement and breathing. Nothing makes it better. Occasional chills but no fevers. Review of Systems Constitutional: reports: Chills. 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, 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 - Present Medications Home Medications: Ambulatory Orders Medication Instructions Recorded Confirmed Cyclobenzaprine [Flexeril] 10 mg ORAL TID PRN 02/13/20 02/13/20 Ondansetron Odt [Zofran Odt] 4 mg PO Q6H PRN #8 tab 04/26/20 Oxycodone HCl/Acetaminophen 1 each PO Q6H PRN #10 tab 04/26/20 [Percocet 10-325 mg Tablet] Tamsulosin HCl [Flomax] 0.4 mg PO QDAC #14 tab 04/26/20 HYDROcod/ACETAM 5/325 [[place] 5/325] 1 ea PO Q6H PRN #12 tablet 10/29/20 Promethazine [Phenergan] 25 mg PO Q6H PRN #15 tablet 10/29/20 - Allergies Allergies/Adverse Reactions: Allergies Allergy/AdvReac Type Severity Reaction Status Date / Time No Known Drug Allergies Allergy Verified 11/06/20 15:24 - Social History Does the pt smoke?: No Smoking Status: Never smoker Does the pt drink ETOH?: No Does the pt have substance abuse?: No - Immunizations Immunizations are current?: Yes - POLST Patient has POLST: No PD ED PE NORMAL - Vitals Vital signs reviewed: Yes - General General: Alert and oriented X 3, No acute distress, Well developed/nourished - HEENT HEENT: PERRL, Moist mucous membranes - Neck Neck: Supple, no meningeal sign - Cardiac Cardiac: RRR, Strong equal pulses - Respiratory Respiratory: No respiratory distress, Clear bilaterally - Abdomen Abdomen: Soft, Non tender, Non distended - Back Back: No CVA TTP, No spinal TTP - Derm Derm: Warm and dry - Extremities Extremities: No edema, No calf tenderness / cord - Neuro Neuro: Alert and oriented X 3 - Psych Psych: Normal mood, Normal affect Results - Vitals Vitals: Vital Signs - 24 hr 11/06/20 11/06/20 11/06/20 15:24 16:42 17:49 Temperature 36.5 C Heart Rate 84 84 84 Respiratory 16 16 15 Rate Blood Pressure 138/90 H O2 Saturation 96 Oxygen O2 Source Room air - EKG (time done) 1523 Rate: Rate (enter#) (87) Rhythm: NSR [place]: Normal Intervals: Normal AR QRS: Normal Ischemia: Normal ST segments - Labs Labs: Laboratory Tests 11/06/20 11/06/20 11/06/20 16:43 16:43 16:43 WBC 11.6 H RBC 5.02 Hgb 14.7 Hct 45.3 MCV 90.2 MCH 29.3 MCHC 32.5 RDW 13.4 Plt Count 302 MPV 9.4 Neut # (Auto) 7.6 H Lymph # (Auto) 2.9 [place] # (Auto) 0.6 Eos # (Auto) 0.4 Baso # (Auto) 0.1 Absolute Nucleated RBC 0.00 Nucleated RBC % 0.0 Sodium 140 Potassium 3.9 Chloride 104 Carbon Dioxide 25 Anion Gap 11.0 BUN 16 Creatinine 0.7 Estimated GFR (MDRD) 89 Glucose 93 Calcium 9.6 Total Bilirubin 1.1 H AST 19 ALT 22 Alkaline Phosphatase 79 Troponin I High Sens < 2.3 L Total Protein 7.6 Albumin 4.2 Globulin 3.4 Albumin/Globulin Ratio 1.2 Lipase 21 L PD MEDICAL DECISION MAKING - ED course Complexity details: reviewed results, re-evaluated patient, considered differential, d/w patient ED course: Patient is a 50-year-old female with chest tightness for the past week. Unclear etiology. Negative work-up here a week ago. No acute findings on laboratory testing, EKG here. A CT pulmonary angiogram was ordered. This will be followed up by Dr. Yanez for final disposition. Patient did not have much change with albuterol or DuoNeb treatment. Unclear etiology of her symptoms. Does not appear to be vaccination related. This document was made in part using voice recognition software. While efforts are made to proofread this document, sound alike and grammatical errors may occur. Departure - Departure Clinical Impression: Tightness in chest Condition: Stable
[2020-11-06 16:47] LABS: BASOPHILS # (AUTO) 0.1 10^3/uL (0.0-0.1); BASOPHILS % (AUTO) 0.6 %; EOSINOPHILS # (AUTO) 0.4 10^3/uL (0.0-0.7); EOSINOPHILS % (AUTO) 3.6 %; HCT - HEMATOCRIT 45.3 % (37.0-47.0); HGB - HEMOGLOBIN 14.7 g/dL (12.0-16.0); LYMPHOCYTES # (AUTO) 2.9 10^3/uL (1.5-3.5); LYMPHOCYTES % (AUTO) 24.7 %; MEAN CORPUSCULAR HEMOGLOBIN 29.3 pg (27.0-31.0); MEAN CORPUSCULAR HGB CONC 32.5 g/dL (32.0-36.0); MEAN CORPUSCULAR VOLUME 90.2 fL (81.0-99.0); MEAN PLATELET VOLUME 9.4 fL (7.9-10.8); MONOCYTES # (AUTO) 0.6 10^3/uL (0.0-1.0); MONOCYTES % (AUTO) 5.3 %; NEUTROPHILS # (AUTO) 7.6 10^3/uL (1.5-6.6); NEUTROPHILS % (AUTO) 65.4 %; PLT - PLATELET COUNT 302 10^3/uL (130-450); RED BLOOD COUNT 5.02 10^6/uL (4.20-5.40); RED CELL DISTRIBUTION WIDTH 13.4 % (12.0-15.0); WHITE BLOOD COUNT 11.6 x10^3/uL (4.8-10.8)
[2020-11-06 17:02] LABS: ALBUMIN 4.2 g/dL (3.2-5.5); ALBUMIN/GLOBULIN RATIO 1.2 (1.0-2.2); BILIRUBIN,TOTAL 1.1 mg/dL (0.2-1.0); CALCIUM 9.6 mg/dL (8.5-10.3); CREATININE 0.7 mg/dL (0.4-1.0); POTASSIUM 3.9 mmol/L (3.5-5.0); TOTAL PROTEIN 7.6 g/dL (6.7-8.2)
[2020-11-06] MEDS ORDERED: IOPAMIDOL-300 100 ML VIAL ONE (17:24)
[2020-11-06] MEDS ORDERED: IPRATROPIUM/ALBUTEROL 3 ML NEB INH STA (17:29)
[2020-11-06] MEDS ORDERED: LORazepam 1 MG TABLET PO STA (18:04)
--- NOTE | 2020-11-06 19:09 | CT Report ---
PROCEDURE: ANGIO CHEST W/WO INDICATIONS: chest tightness, dyspnea CONTRAST: IV CONTRAST: Isovue 300 ml: 80 PO CONTRAST: *NO PO CONTRAST TECHNIQUE: After the administration of intravenous contrast, images were acquired from the pulmonary apices to t he posterior costophrenic angles. 3-dimensional maximum intensity projection (MIP) coronal and sagit magnolia reformats were then acquired through the thorax. For radiation dose reduction, the following was used: automated exposure control, adjustment of mA and/or kV according to patient size. COMPARISON: 02/13/2020 FINDINGS: Image quality: Excellent. Pulmonary arteries: Pulmonary arteries are normal in size, and demonstrate no intraluminal filling d efects to suggest central pulmonary embolism. Lungs and pleura: Lungs are clear. No pleural effusions or pneumothorax. Central and peripheral ai rways are patent. Mediastinum: Heart size is normal, without pericardial effusion. No mediastinal or hilar adenopathy . Thoracic aorta is normal in caliber and enhancement. Esophagus is normal in caliber, without hiat al hernia. Bones and chest wall: No suspicious bony lesions. Ribs and thoracic spine appear intact throughout. No axillary or supraclavicular adenopathy. The thyroid is normal in size and there are no incident al findings. Bilateral breast implants are intact. Abdomen: Visualized upper abdominal solid organs appear normal in the early arterial phase of enhanc ement. IMPRESSION: 1. No pulmonary embolus. 2. No acute abnormality. Reviewed by: Juventino Heaton on 11/06/2020 7:08 PM PDT Approved by: Juventino Heaton on 11/06/2020 7:08 PM PDT Station ID: [id number]
[2020-11-06] MEDS ORDERED: HYDROmorphone 1 MG/ML CARPUJECT IVP STA (20:07)
[2020-11-06] MEDS ORDERED: KETOROLAC 15 MG/ML VIAL IVP STA (20:08)
[2020-11-06] MEDS ORDERED: DEXAMETHASONE 10 MG/ML VIAL IVP STA (20:22)
[2020-11-06] MEDS ORDERED: methocarbamoL 500 MG TABLET PO STA (20:22)
[2020-11-06 20:56] VITALS: BP 117/91
[2020-11-06] MEDS ORDERED: IOPAMIDOL-300 100 ML VIAL IVP ONE (21:22)
== END 2020-11-06 21:01 | disposition home or self-care (01) ==
LOC: ED 15:20
DX: R07.89 Other chest pain (principal); I10 Essential (primary) hypertension
CPT/HCPCS: 36415; 71275; 80053; 83690; 84484; 85025; 93005; 94640; 96374; 96375; 99284; A9270; J1170; J8499; Q9967

== ENCOUNTER 2021-03-04 19:29 | Emergency (ER) | payer MEDICAID ==
[2021-03-04 19:55] LABS: BASOPHILS # (AUTO) 0.1 10^3/uL (0.0-0.1); BASOPHILS % (AUTO) 0.7 %; EOSINOPHILS # (AUTO) 0.4 10^3/uL (0.0-0.7); EOSINOPHILS % (AUTO) 4.4 %; HCT - HEMATOCRIT 47.5 % (37.0-47.0); HGB - HEMOGLOBIN 15.7 g/dL (12.0-16.0); LYMPHOCYTES # (AUTO) 3.1 10^3/uL (1.5-3.5); MEAN CORPUSCULAR HEMOGLOBIN 29.9 pg (27.0-31.0); MEAN CORPUSCULAR HGB CONC 33.1 g/dL (32.0-36.0); MEAN CORPUSCULAR VOLUME 90.5 fL (81.0-99.0); MEAN PLATELET VOLUME 9.2 fL (7.9-10.8); MONOCYTES # (AUTO) 0.7 10^3/uL (0.0-1.0); MONOCYTES % (AUTO) 7.3 %; NEUTROPHILS # (AUTO) 4.9 10^3/uL (1.5-6.6); NEUTROPHILS % (AUTO) 53.3 %; PLT - PLATELET COUNT 313 10^3/uL (130-450); RED BLOOD COUNT 5.25 10^6/uL (4.20-5.40); RED CELL DISTRIBUTION WIDTH 12.9 % (12.0-15.0); WHITE BLOOD COUNT 9.2 x10^3/uL (4.8-10.8)
[2021-03-04 20:07] LABS: ALBUMIN 4.3 g/dL (3.2-5.5); ALBUMIN/GLOBULIN RATIO 1.4 (1.0-2.2); BILIRUBIN,TOTAL 1.1 mg/dL (0.2-1.0); CALCIUM 9.5 mg/dL (8.5-10.3); CREATININE 0.8 mg/dL (0.4-1.0); POTASSIUM 3.7 mmol/L (3.5-5.0); TOTAL PROTEIN 7.4 g/dL (6.7-8.2)
--- NOTE | 2021-03-04 20:49 | XRAY Report ---
PROCEDURE: Chest 1 View X-Ray INDICATIONS: Chest pain TECHNIQUE: One view of the chest was acquired. COMPARISON: 10/29/2020 FINDINGS: Surgical changes and devices: None. Lungs and pleura: No pleural effusions or pneumothorax. Lungs are clear. Mediastinum: Mediastinal contours appear normal. Heart size is normal. Bones and chest wall: No suspicious bony lesions. Overlying soft tissues appear unremarkable. IMPRESSION: 1. No acute cardiopulmonary disease. Reviewed by: Yaw Duron MD on 03/04/2021 8:48 PM PST Approved by: Yaw Duron MD on 03/04/2021 8:48 PM [facility] Station ID: [id number]
--- NOTE | 2021-03-04 21:05 | ED Physician Documentation ---
PD HPI CHEST PAIN - Stated complaint Stated Complaint: CP/BACK PX - Chief complaint Chief Complaint: Cardiac - History obtained from History obtained from: Patient - History of Present Illness Timing - onset: How many days ago (4) Timing - onset during: Rest Timing - duration: Days (4) Timing - details: Gradual onset, Still present Quality: Tightness, Pain Location: Substernal, Left chest, Right chest, Left shoulder/arm Radiation: No: Jaw, Neck, Back, Abdominal, Left upper extremity, Right upper extremity Improved by: Rest Worsened by: Exertion, Inspiration, Movement, Palpation Associated symptoms: No: Shortness of air, Diaphoresis, Nausea, Vomiting, Feeling faint / dizzy, General Weakness, Palpitations, Cough Similar symptoms before: Diagnosis (inflammation) Recently seen: Not recently seen PD PAST MEDICAL HISTORY - Past Medical History Past Medical History: Yes Cardiovascular: Hypertension Respiratory: None Neuro: Migraines Endocrine/Autoimmune: None GI: GERD, Hiatal hernia, 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 : Kidney stones HEENT: None Psych: Anxiety Musculoskeletal: Chronic back pain Derm: None - Past Surgical History Past 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 /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: section, 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, Breast implants - Present Medications Home Medications: Ambulatory Orders Medication Instructions Recorded Confirmed Meloxicam [Mobic] 7.5 mg PO BID PRN #20 tablet 03/04/21 - Allergies Allergies/Adverse Reactions: Allergies Allergy/AdvReac Type Severity Reaction Status Date / Time No Known Drug Allergies Allergy Verified 03/04/21 19:32 - Social History Does the pt smoke?: No Smoking Status: Never smoker Does the pt drink ETOH?: No Does the pt have substance abuse?: No - Immunizations Immunizations are current?: Yes - POLST Patient has POLST: No PD ED PE NORMAL - Vitals Vital signs reviewed: Yes (tachy and hypertensive ) - General General: Alert and oriented X 3, No acute distress, Well developed/nourished - HEENT HEENT: Atraumatic, PERRL, EOMI - Neck Neck: Supple, no meningeal sign, No bony TTP - Cardiac Cardiac: RRR, No murmur - Respiratory Respiratory: No respiratory distress, Clear bilaterally, Other (Point tenderness along the costal sternal margin bilaterally reproduces the pain patient is experiencing. She also is experiencing pain over the rhomboid muscle on the left side. She has specific point tenderness over the rhomboids.) - Abdomen Abdomen: Soft, Non tender - Back Back: No CVA TTP, No spinal TTP - Derm Derm: Normal color, Warm and dry, No rash - Extremities Extremities: No deformity, No edema - Neuro Neuro: Alert and oriented X 3, district court justice 2-12 intact, No motor deficit, No sensory deficit, Normal speech Eye Opening: Spontaneous Motor: Obeys Commands Verbal: Oriented GCS Score: 15 - Psych Psych: Normal mood, Normal affect Results - Vitals Vitals: Vital Signs - 24 hr 03/04/21 03/04/21 03/04/21 19:33 19:51 20:52 Temperature 36.6 C Heart Rate 102 H 102 H 98 Respiratory 18 20 20 Rate Blood Pressure 148/97 H 145/93 H 139/93 H O2 Saturation 99 100 98 03/04/21 21:29 Temperature 36.8 C Heart Rate 95 Respiratory 14 Rate Blood Pressure 136/98 H O2 Saturation 96 Oxygen O2 Source Room air - EKG (time done) 1934 Rate: Rate (enter#) (105) Rhythm: Sinus tachycardia QRS: Low voltage Compare to prior EKG: Changed from prior EKG ([facility] 11-06-20 rate is faster) Computer interpretation: Agree with computer - Labs Labs: Laboratory Tests 03/04/21 03/04/21 03/04/21 19:47 19:47 19:47 WBC 9.2 RBC 5.25 Hgb 15.7 Hct 47.5 H MCV 90.5 MCH 29.9 MCHC 33.1 RDW 12.9 Plt Count 313 MPV 9.2 Neut # (Auto) 4.9 Lymph # (Auto) 3.1 [place] # (Auto) 0.7 Eos # (Auto) 0.4 Baso # (Auto) 0.1 Absolute Nucleated RBC 0.00 Nucleated RBC % 0.0 Sodium 137 Potassium 3.7 Chloride 99 L Carbon Dioxide 28 Anion Gap 10.0 BUN 13 Creatinine 0.8 Estimated GFR (MDRD) 77 L Glucose 88 Calcium 9.5 Total Bilirubin 1.1 H AST 26 ALT 34 Alkaline Phosphatase 89 Troponin I High Sens < 2.3 L Total Protein 7.4 Albumin 4.3 Globulin 3.1 Albumin/Globulin Ratio 1.4 Lipase 26 - Rads (name of study) chest Radiology: Prelim report reviewed (Impression: 1. 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 She initially had pain over her rhomboid muscles with specific point tenderness. She eventually developed pain into her anterior chest wall similar to what she had in October of this year. She was evaluated thoroughly here in the emergency department with a diagnosis of inflammation. Today she has costochondritis and she has rhomboid muscle pain. All this appears to be overuse inflammation and she is treated emerge apartment with dexamethasone and Toradol. She does not usually tolerate oral anti-inflammatories and we will prescribe some Mobic for her. Departure - Departure Disposition: 01 Home, Self Care Clinical Impression: Costochondritis, acute Rhomboid muscle strain Qualifiers: Encounter type: initial encounter Qualified Code(s): S29.012A - Strain of muscle and tendon of back wall of thorax, initial encounter Condition: Stable Instructions: ED Chest Pain Costochondritis, ED Myofascial Pain Syndrome Follow-Up: JOSESITO PETERS, MSN, [employer]RICATOR [Credentialed Staff Provider] - Prescriptions: Meloxicam [Mobic] 7.5 mg PO BID PRN #20 tablet PRN Reason: Pain Comments: Samantha, today it looks like your muscles in your back in the joint between your ribs and sternum are inflamed from excessive use. The treatment will help with this is a bit of rest and anti-inflammatories. Reduce your level of activity and try the Mobic as an anti-inflammatory. This has been E scribed to in [place]. Discharge Date/Time: 03/04/21 21:30
[2021-03-04] MEDS: DEXAMETHASONE 10 MG/ML VIAL IVP STA (21:19)
[2021-03-04] MEDS: KETOROLAC 30 MG/ML VIAL IVP STA (21:19)
[2021-03-04 21:29] VITALS: BP 136/98
== END 2021-03-04 21:30 | disposition home or self-care (01) ==
LOC: ED 19:29
DX: S29.012A Strain of muscle and tendon of back wall of thorax, initial encounter (principal); M94.0 Chondrocostal junction syndrome [Tietze]; X58.XXXA Exposure to other specified factors, initial encounter; I10 Essential (primary) hypertension
CPT/HCPCS: 36415; 80053; 83690; 84484; 85025; 93005; 96374; 99283

== ENCOUNTER 2021-07-22 08:16 | Emergency (ER) | payer MEDICAID ==
[2021-07-22 08:23] VITALS: BP 126/84
--- NOTE | 2021-07-22 09:01 | ED Physician Documentation ---
History of Present Illness - Stated complaint Stated Complaint: SWOLLEN FACE,SHOULDER - Chief complaint Chief Complaint: Allergic Rx - History obtained from History obtained from: Patient - Additonal information Additional information: The patient comes to the emergency department chief complaint of rash on face after using a new cosmetic product last night. The patient states she woke up this morning with a red, "bumpy" rash on her face and a sense of facial burning. No swelling of her oropharyngeal structures. She has a little bit of burning and rash on her left shoulder, she thinks because of the way she sleeps and that her hand or cheek likely had contact with the shoulder. No other complaints at this time. No other allergic symptoms anywhere else. Review of Systems Ten Systems: 10 systems reviewed and negative Constitutional: reports: Reviewed and negative Eyes: reports: Reviewed and negative Ears: reports: Reviewed and negative Nose: reports: Reviewed and negative Throat: reports: Reviewed and negative Cardiac: reports: Reviewed and negative Respiratory: reports: Reviewed and negative GI: reports: Reviewed and negative : reports: Reviewed and negative Skin: reports: Rash Musculoskeletal: reports: Reviewed and negative Neurologic: reports: Reviewed and negative Psychiatric: reports: Reviewed and negative Endocrine: reports: Reviewed and negative Immunocompromised: reports: Reviewed and negative PD PAST MEDICAL HISTORY - Past Medical History Cardiovascular: Hypertension Respiratory: None Neuro: Migraines Endocrine/Autoimmune: None GI: GERD, Hiatal hernia, 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 : Kidney stones HEENT: None Psych: Anxiety Musculoskeletal: Chronic back pain Derm: None - Past Surgical History Past 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 /TRACK 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: section, 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, Breast implants - Present Medications Home Medications: Ambulatory Orders Medication Instructions Recorded Confirmed diphenhydrAMINE [Benadryl] 25 mg PO Q4-6H #20 cap 07/22/21 predniSONE [Deltasone] 60 mg PO DAILY 3 Days #9 tablet 07/22/21 - Allergies Allergies/Adverse Reactions: Allergies Allergy/AdvReac Type Severity Reaction Status Date / Time No Known Drug Allergies Allergy Verified 07/22/21 08:23 - Social History Does the pt smoke?: No Smoking Status: Never smoker Does the pt drink ETOH?: No Does the pt have substance abuse?: No - Immunizations Immunizations are current?: Yes - POLST Patient has POLST: No PD ED PE NORMAL - Vitals Vital signs reviewed: Yes - General General: Alert and oriented X 3, No acute distress, Well developed/nourished - HEENT HEENT: Atraumatic, PERRL, EOMI, Moist mucous membranes, Other (No edema of the oropharyngeal structures. Erythematous, maculopapular rash involving both maxillary areas, with scattered papules over patient's upper eyelids and within eyebrows.) - Respiratory Respiratory: No respiratory distress - Derm Derm: Normal color, Warm and dry, Other (Facial rash as noted above. Scant maculopapular rash over patient's left shoulder.) - Extremities Extremities: No deformity - Neuro Neuro: Alert and oriented X 3 - Psych Psych: Normal mood, Normal affect Results - Vitals Vitals: Vital Signs - 24 hr 07/22/21 08:21 Temperature 36.4 C L Heart Rate 107 H Respiratory 16 Rate Blood Pressure 126/84 H O2 Saturation 100 Oxygen O2 Source Room air PD MEDICAL DECISION MAKING - ED course Complexity details: considered differential, d/w patient ED course: I discussed with the patient that her symptoms are consistent with a chemical contact dermatitis, most likely from the new facial cream she used last night. We have discussed that she should not use that cream again. I will give the patient a short course of prednisone and Benadryl, but have advised patient not to put anything else on her skin as this may make the rash worse. She understands this is a self-limited condition, which should improve on its own in the next few days. We have discussed the usual indications for return. Departure - Departure Disposition: 01 Home, Self Care Clinical Impression: Allergic reaction Qualifiers: Encounter type: initial encounter Qualified Code(s): T78.40XA - Allergy, unspecified, initial encounter Contact dermatitis Qualifiers: Contact dermatitis type: unspecified Contact dermatitis trigger: cosmetics Qualified Code(s): L25.0 - Unspecified contact dermatitis due to cosmetics Condition: Stable Instructions: ED Dermatitis Contact Prescriptions: diphenhydrAMINE [Benadryl] 25 mg PO Q4-6H #20 cap predniSONE [Deltasone] 60 mg PO DAILY 3 Days #9 tablet Comments: Your prescriptions have been electronically transmitted to [facility], at your request. Discharge Date/Time: 07/22/21 09:06
== END 2021-07-22 09:06 | disposition home or self-care (01) ==
LOC: ED 08:16
DX: L25.0 Unspecified contact dermatitis due to cosmetics (principal); I10 Essential (primary) hypertension
CPT/HCPCS: 99282; 99283

== ENCOUNTER 2021-09-16 10:18 | Outpatient (CLI) | payer MEDICAID ==
[2021-09-16 10:32] LABS: BASOPHILS # (AUTO) 0.1 10^3/uL (0.0-0.1); BASOPHILS % (AUTO) 0.7 %; EOSINOPHILS # (AUTO) 0.3 10^3/uL (0.0-0.7); EOSINOPHILS % (AUTO) 3.4 %; HCT - HEMATOCRIT 46.1 % (37.0-47.0); HGB - HEMOGLOBIN 15.1 g/dL (12.0-16.0); LYMPHOCYTES # (AUTO) 2.5 10^3/uL (1.5-3.5); LYMPHOCYTES % (AUTO) 28.6 %; MEAN CORPUSCULAR HEMOGLOBIN 29.4 pg (27.0-31.0); MEAN CORPUSCULAR HGB CONC 32.8 g/dL (32.0-36.0); MEAN CORPUSCULAR VOLUME 89.9 fL (81.0-99.0); MEAN PLATELET VOLUME 9.5 fL (7.9-10.8); MONOCYTES # (AUTO) 0.4 10^3/uL (0.0-1.0); NEUTROPHILS # (AUTO) 5.5 10^3/uL (1.5-6.6); PLT - PLATELET COUNT 290 10^3/uL (130-450); RED BLOOD COUNT 5.13 10^6/uL (4.20-5.40); RED CELL DISTRIBUTION WIDTH 13.4 % (12.0-15.0); WHITE BLOOD COUNT 8.8 x10^3/uL (4.8-10.8)
[2021-09-16 10:50] LABS: ALBUMIN 4.1 g/dL (3.2-5.5); ALBUMIN/GLOBULIN RATIO 1.2 (1.0-2.2); ALKALINE PHOSPHATASE 77 IU/L (42-121); ALT ALANINE AMINOTRANSFERASE 22 IU/L (10-60); AST ASPARTATE AMINOTRANSFERASE 19 IU/L (10-42); BILIRUBIN,TOTAL 1.7 mg/dL (0.2-1.0); BUN - BLOOD UREA NITROGEN 15 mg/dL (6-20); CALCIUM 9.5 mg/dL (8.5-10.3); CARBON DIOXIDE - CO2 27 mmol/L (21-32); CHLORIDE 102 mmol/L (101-111); CHOL/HDL RATIO 3.3 (<4.4); CHOLESTEROL 267 mg/dL; CREATININE 0.7 mg/dL (0.4-1.0); GFR - MDRD 89 (>89); GLUCOSE 95 mg/dL (70-100); HDL CHOLESTEROL 82 mg/dL; LDL CHOLESTEROL,CALCULATED 162 mg/dL; POTASSIUM 4.1 mmol/L (3.5-5.0); SODIUM 139 mmol/L (135-145); TOTAL PROTEIN 7.6 g/dL (6.7-8.2); TRIGLYCERIDES 113 mg/dL; VLDL CHOLESTEROL 23 mg/dL
[2021-09-16 11:01] LABS: THYROID STIMULATING HORMONE 1.74 uIU/mL (0.34-5.60)
== END 2021-09-16 10:19 | disposition home or self-care (01) ==
LOC: LAB 10:18
PROVIDERS: ATTEND Physician Assistant
DX: Z13.9 Encounter for screening, unspecified (principal); Z13.220 Encounter for screening for lipoid disorders; Z13.29 Encounter for screening for other suspected endocrine disorder
CPT/HCPCS: 36415; 80053; 80061; 82306; 83721; 84443; 85025

== ENCOUNTER 2021-09-23 14:33 | Outpatient (CLI) | payer MEDICAID ==
--- NOTE | 2021-09-24 08:30 | Mammography Report ---
BILATERAL DIGITAL SCREENING MAMMOGRAM 3D/2D WITH AUGMENTATION: 09/23/2021 CLINICAL: Routine screening. Comparison is made to exams dated: 09/24/2019 mammogram, 01/09/2018 mammogram, 02/10/2015 mammogram, a nd 02/10/2015 ultrasound - [facility]. The tissue of both breasts is heterogeneous ly dense. This may lower the sensitivity of mammography. Bilateral breast implants are present. No significant masses, calcifications, or other findings are seen in either breast. There has been no significant interval change. IMPRESSION: NEGATIVE There is no mammographic evidence of malignancy. A 1 year screening mammogram is recommended. Based on the Tyrer Cuzick model (a risk assessment model) the patients lifetime risk is 13.9% and he r 10 year risk is 3.0%. According to the ACR, ACS, and NCCN guidelines, an annual breast MRI exam jarvis ng with mammogram is recommended if the patients lifetime risk is 20% or greater. This exam was interpreted at Station ID: [id number]. NOTE: For mammograms, a report in lay terms will be sent to the patient. Approximately 15% of breast malignancies will not be visualized mammographically. In the management of a palpable breast mass, a negative mammogram must not discourage biopsy of a clinically suspicious lesion. Electronically Signed By: Patrick Sharp M.D. [email or web address]:09/23/2021 17:59:41 ACR BI-RADS Category 1: Negative 3341F PARENCHYMAL PATTERN: (D) - The breast(s) demonstrate(s) heterogeneously dense fibroglandular rimma hernández. BI-RADS CATEGORY: (1) - 1 RECOMMENDATION: (ANNUAL) - Recommend routine annual screening mammography. [id number] 1 year screening LATERALITY: (B)
== END 2021-09-23 14:34 | disposition home or self-care (01) ==
LOC: DI.N 14:33
DX: Z12.31 Encounter for screening mammogram for malignant neoplasm of breast (principal); Z98.82 Breast implant status

== ENCOUNTER 2022-01-13 10:10 | Outpatient (CLI) | payer MEDICAID ==
[2022-01-13 10:18] LABS: BILIRUBIN,URINE NEGATIVE (NEGATIVE); GLUCOSE, URINE (UA) NEGATIVE (NEGATIVE); KETONES,URINE (UA) NEGATIVE (NEGATIVE); LEUKOCYTE ESTERASE, URINE NEGATIVE (NEGATIVE); NITRITE,URINE NEGATIVE (NEGATIVE); OCCULT BLOOD,URINE SMALL (NEGATIVE); PH,URINE 5.5 PH (5.0-7.5); PROTEIN,URINE NEGATIVE (NEGATIVE); UROBILINOGEN,URINE 0.2 (NORMAL) E.U./dL (NORMAL)
[2022-01-13 10:33] LABS: BACTERIA,URINE Few /HPF (None Seen); CLARITY,URINE HAZY (CLEAR); RBC,URINE 0-5 /HPF (0-5); SQUAMOUS EPITHELIAL CELL,UR MOD Squamous (<= Few); WBC,URINE 0-3 /HPF (0-5)
== END 2022-01-13 10:11 | disposition home or self-care (01) ==
LOC: LAB 10:10
PROVIDERS: ATTEND Physician Assistant
DX: R10.2 Pelvic and perineal pain (principal)
CPT/HCPCS: 81001; 87086

== ENCOUNTER 2022-01-18 10:15 | Outpatient (CLI) | payer MEDICAID ==
[2022-01-19 22:52] LABS: BACTERIAL VAGINOSIS DNA NEGATIVE (NEGATIVE); CANDIDA GLABRATA DNA NEGATIVE (NEGATIVE); CANDIDA GROUP DNA NEGATIVE (NEGATIVE); CANDIDA KRUSEI DNA NEGATIVE (NEGATIVE); TRICHOMONAS VAGINALIS DNA NEGATIVE (NEGATIVE)
== END 2022-01-18 23:59 | disposition home or self-care (01) ==
LOC: LAB.WC 10:15
PROVIDERS: ATTEND Nurse Practitioner
DX: R10.2 Pelvic and perineal pain (principal)
CPT/HCPCS: 81514

== ENCOUNTER 2022-01-29 15:13 | Outpatient (CLI) | payer MEDICAID ==
--- NOTE | 2022-01-29 18:11 | Ultrasound Report ---
PROCEDURE: Pelvic w/Transvaginal INDICATIONS: PELVIC PAIN TECHNIQUE: Real-time scanning was performed of the pelvic organs, with image documentation. Additional endovagi nal scanning was necessary due to incomplete visualization of the adnexal and endometrial structures by transabdominal scanning. COMPARISON: None. FINDINGS: Study is limited by patient body habitus Uterus: Uterus is anteverted and normal in size at 8.8 x 4.4 x 5.6 cm. The myometrium is heterogeno us. The endometrium measures 9.3 mm in combined thickness. Ovaries: The right ovary measures 2.9 x 1.8 x 2.1 cm, with a calculated ovarian volume of 5.6 cc. T he left ovary measures 2.3 x 1.0 x 2.0 cm, with a calculated ovarian volume of 2.5 cc. The ovaries h ave a normal sonographic appearance. Less than 12 follicles can be seen in each ovary. No adnexal m asses are seen. Other: No pathologic free abdominal or pelvic fluid. IMPRESSION: 1. Unremarkable ultrasound pelvis Reviewed by: Ferny Denson MD on 01/29/2022 5:09 PM [place] Approved by: Ferny Denson MD on 01/29/2022 5:09 PM [place] Station ID: [id number]
== END 2022-01-29 15:14 | disposition home or self-care (01) ==
LOC: DI 15:13
PROVIDERS: ATTEND Physician Assistant
DX: R10.2 Pelvic and perineal pain (principal)

== ENCOUNTER 2022-02-10 08:00 | Outpatient (CLI) | payer MEDICAID ==
[2022-02-10 13:26] LABS: BILIRUBIN,URINE NEGATIVE (NEGATIVE); GLUCOSE, URINE (UA) NEGATIVE (NEGATIVE); KETONES,URINE (UA) NEGATIVE (NEGATIVE); LEUKOCYTE ESTERASE, URINE NEGATIVE (NEGATIVE); NITRITE,URINE NEGATIVE (NEGATIVE); OCCULT BLOOD,URINE TRACE-INTA (NEGATIVE); PROTEIN,URINE NEGATIVE (NEGATIVE); UROBILINOGEN,URINE 0.2 (NORMAL) E.U./dL (NORMAL)
[2022-02-10 13:35] LABS: BACTERIA,URINE Few /HPF (None Seen); CLARITY,URINE HAZY (CLEAR); MUCUS,URINE Few Strands; SQUAMOUS EPITHELIAL CELL,UR MOD Squamous (<= Few); WBC,URINE 0-3 /HPF (0-5)
== END 2022-02-10 23:59 | disposition home or self-care (01) ==
LOC: LAB.WCP 08:00
PROVIDERS: ATTEND Physician Assistant
DX: R10.2 Pelvic and perineal pain (principal)
CPT/HCPCS: 81001; 87086

== ENCOUNTER 2022-03-24 10:03 | Outpatient (CLI) | payer MEDICAID ==
[2022-03-24 10:13] LABS: BILIRUBIN,URINE NEGATIVE (NEGATIVE); GLUCOSE, URINE (UA) NEGATIVE (NEGATIVE); KETONES,URINE (UA) NEGATIVE (NEGATIVE); LEUKOCYTE ESTERASE, URINE NEGATIVE (NEGATIVE); NITRITE,URINE NEGATIVE (NEGATIVE); OCCULT BLOOD,URINE NEGATIVE (NEGATIVE); PROTEIN,URINE NEGATIVE (NEGATIVE); UROBILINOGEN,URINE 0.2 (NORMAL) E.U./dL (NORMAL)
[2022-03-24 10:24] LABS: BACTERIA,URINE Few /HPF (None Seen); CLARITY,URINE CLEAR (CLEAR); RBC,URINE 0-5 /HPF (0-5); SQUAMOUS EPITHELIAL CELL,UR FEW Squamous (<= Few); WBC,URINE 0-3 /HPF (0-5)
== END 2022-03-24 10:04 | disposition home or self-care (01) ==
LOC: LAB.R 10:03
PROVIDERS: ATTEND Physician Assistant
DX: R31.9 Hematuria, unspecified (principal)
CPT/HCPCS: 81001; 87086

== ENCOUNTER 2022-04-06 08:28 | Outpatient (CLI) | payer MEDICAID ==
[2022-04-06 08:45] LABS: BASOPHILS # (AUTO) 0.1 10^3/uL (0.0-0.1); BASOPHILS % (AUTO) 0.8 %; EOSINOPHILS # (AUTO) 0.3 10^3/uL (0.0-0.7); EOSINOPHILS % (AUTO) 3.8 %; HCT - HEMATOCRIT 45.2 % (37.0-47.0); LYMPHOCYTES # (AUTO) 2.2 10^3/uL (1.5-3.5); LYMPHOCYTES % (AUTO) 32.5 %; MEAN CORPUSCULAR HGB CONC 33.2 g/dL (32.0-36.0); MEAN CORPUSCULAR VOLUME 90.4 fL (81.0-99.0); MEAN PLATELET VOLUME 9.3 fL (7.9-10.8); MONOCYTES # (AUTO) 0.4 10^3/uL (0.0-1.0); MONOCYTES % (AUTO) 5.9 %; NEUTROPHILS # (AUTO) 3.8 10^3/uL (1.5-6.6); NEUTROPHILS % (AUTO) 56.7 %; PLT - PLATELET COUNT 284 10^3/uL (130-450); RED CELL DISTRIBUTION WIDTH 13.3 % (12.0-15.0); WHITE BLOOD COUNT 6.7 x10^3/uL (4.8-10.8)
[2022-04-06 09:14] LABS: ALBUMIN 3.9 g/dL (3.2-5.5); ALBUMIN/GLOBULIN RATIO 1.3 (1.0-2.2); ALKALINE PHOSPHATASE 74 IU/L (42-121); ALT ALANINE AMINOTRANSFERASE 20 IU/L (10-60); AST ASPARTATE AMINOTRANSFERASE 20 IU/L (10-42); BILIRUBIN,TOTAL 1.4 mg/dL (0.2-1.0); BUN - BLOOD UREA NITROGEN 13 mg/dL (6-20); CALCIUM 8.9 mg/dL (8.5-10.3); CARBON DIOXIDE - CO2 27 mmol/L (21-32); CHLORIDE 96 mmol/L (101-111); CHOL/HDL RATIO 3.6 (<4.4); CHOLESTEROL 235 mg/dL; CREATININE 0.8 mg/dL (0.4-1.0); GFR - MDRD 76 (>89); GLUCOSE 93 mg/dL (70-100); HDL CHOLESTEROL 66 mg/dL; LDL CHOLESTEROL,CALCULATED 153 mg/dL; LDL/HDL RATIO 2.3 (<4.4); POTASSIUM 4.1 mmol/L (3.5-5.0); SODIUM 132 mmol/L (135-145); TRIGLYCERIDES 82 mg/dL; VLDL CHOLESTEROL 16 mg/dL
== END 2022-04-06 08:29 | disposition home or self-care (01) ==
LOC: LAB 08:28
PROVIDERS: ATTEND Physician Assistant
DX: E78.5 Hyperlipidemia, unspecified (principal); R53.83 Other fatigue; E55.9 Vitamin D deficiency, unspecified
CPT/HCPCS: 36415; 80053; 80061; 81001; 82306; 83721; 85025; 87086

== ENCOUNTER 2022-04-21 11:19 | Outpatient (CLI) | payer MEDICAID ==
--- NOTE | 2022-04-21 17:16 | XRAY Report ---
PROCEDURE: Cervical Spine Comp w/Flex/Ext INDICATIONS: NECK PAIN TECHNIQUE: 7 views of the cervical spine were acquired. COMPARISON: None FINDINGS: Bones: No fractures or dislocations to the C7-T1 level. No suspicious bony lesions. There is isaac l range of motion between flexion and extension, with preserved normal bony alignment. There is mild straightening of normal cervical curvature. There is moderate disc space narrowing at C4-5. Multileve l mild uncovertebral hypertrophy are present. There is left C4-5 foraminal narrowing as well as multi level right foraminal narrowing although poorly evaluated secondary to positioning. Soft tissues: Prevertebral soft tissues are normal in thickness. IMPRESSION: Multilevel degenerative changes as described above. Reviewed by: Octavia Guthrie MD on 04/21/2022 5:15 PM PST Approved by: Octavia Guthrie MD on 04/21/2022 5:15 PM [facility] Station ID: [id number]
== END 2022-04-21 11:20 | disposition home or self-care (01) ==
LOC: DI.S 11:19 → DI 11:20
PROVIDERS: ATTEND Physician Assistant
DX: M47.812 Spondylosis without myelopathy or radiculopathy, cervical region (principal)

== ENCOUNTER 2022-05-31 08:00 | Outpatient (CLI) | payer MEDICAID ==
--- NOTE | 2022-05-31 11:15 | XRAY Report ---
PROCEDURE: Hip 2 View LT INDICATIONS: LEFT HIP PAIN TECHNIQUE: 2 views of the hip were acquired. COMPARISON: CT abdomen pelvis 03/04/2022 FINDINGS: Bones: No fractures or dislocations. No suspicious bony lesions. The visualized pelvic ring appear s intact. Mild degenerative changes of both hips with joint space loss and spurring present Soft tissues: No suspicious soft tissue calcifications or masses. IMPRESSION: Mild degenerative changes of both hips Reviewed by: Meng Jacob MD on 05/31/2022 11:13 AM PDT Approved by: Meng Jacob MD on 05/31/2022 11:13 AM PDT Station ID: [id number]
== END 2022-05-31 23:59 | disposition home or self-care (01) ==
LOC: DI.WOS 08:00
PROVIDERS: ATTEND Physician Assistant Surgical
DX: M16.0 Bilateral primary osteoarthritis of hip (principal)

== ENCOUNTER 2022-09-20 16:16 | Outpatient (CLI) | payer MEDICAID, OTHER ==
--- NOTE | 2022-09-20 17:20 | XRAY Report ---
PROCEDURE: Shoulder 2 View LT INDICATIONS: LT SHOULDER PX TECHNIQUE: 2 views of the shoulder were acquired. COMPARISON: None. FINDINGS: Bones: No fractures or dislocations. No suspicious bony lesions. Visualized ribs appear intact. Soft tissues: No suspicious soft tissue calcifications. IMPRESSION: No acute bony abnormality. If pain persists with conservative management, consider repeat radiographs in 10-14 days or cross-sectional imaging. Reviewed by: Elbert Lewis MD on 09/20/2022 5:19 PM PDT Approved by: Elbert Lewis MD on 09/20/2022 5:19 PM PDT Station ID: [id number]
== END 2022-09-20 16:17 | disposition home or self-care (01) ==
LOC: DI 16:16
PROVIDERS: ATTEND Nurse Practitioner
DX: M25.512 Pain in left shoulder (principal)

== ENCOUNTER 2022-12-28 08:00 | Outpatient (CLI) | payer OTHER, MEDICAID ==
--- NOTE | 2022-12-28 16:19 | XRAY Report ---
PROCEDURE: Shoulder 2 View LT INDICATIONS: LEFT SHOULDER PAIN TECHNIQUE: 2 views of the shoulder were acquired. COMPARISON: Left shoulder 09/20/2022 FINDINGS: Bones: No fractures or dislocations. No suspicious bony lesions. Visualized ribs appear intact. Soft tissues: No suspicious soft tissue calcifications. The visualized lungs are within normal limi ts. IMPRESSION: No acute bony abnormality. If concern persists, MRI or CT may be obtained. Reviewed by: Octavia Guthrie MD on 12/28/2022 4:18 PM PDT Approved by: Octavia Guthrie MD on 12/28/2022 4:18 PM PDT Station ID: [id number]
== END 2022-12-28 23:59 | disposition home or self-care (01) ==
LOC: DI.WOS 08:00
PROVIDERS: ATTEND Physician Assistant Surgical
DX: M25.312 Other instability, left shoulder (principal)

== ENCOUNTER 2023-05-13 08:00 | Outpatient (CLI) | payer SELFPAY | END 2023-05-13 23:59 | disposition home or self-care (01) | LOC: LAB.N 08:00 | PROVIDERS: ATTEND Registered Nurse | DX: N30.00 Acute cystitis without hematuria (principal) | CPT/HCPCS: 87086 ==

== ENCOUNTER 2023-10-13 08:00 | Outpatient (CLI) | payer MEDICAID | END 2023-10-13 23:59 | disposition home or self-care (01) | LOC: LAB.N 08:00 | PROVIDERS: ATTEND Physician Assistant Medical | DX: R30.0 Dysuria (principal) | CPT/HCPCS: 87086 ==

== ENCOUNTER 2023-11-06 19:00 | Outpatient (CLI) | payer MEDICAID | END 2023-11-06 23:59 | disposition critical access hospital (66) | LOC: EMS 19:00 | DX: N20.0 Calculus of kidney (principal); R10.31 Right lower quadrant pain; M54.50 Low back pain, unspecified | CPT/HCPCS: A0425; A0427 ==

== ENCOUNTER 2023-11-07 20:40 | Outpatient (CLI) | payer MEDICAID | END 2023-11-07 20:41 | disposition critical access hospital (66) | LOC: EMS 20:40 | DX: R10.31 Right lower quadrant pain (principal); R10.32 Left lower quadrant pain; M54.50 Low back pain, unspecified; R11.2 Nausea with vomiting, unspecified; R10.815 Periumbilic abdominal tenderness; R30.0 Dysuria; R31.9 Hematuria, unspecified | CPT/HCPCS: A0425; A0427; A0999 ==

== ENCOUNTER 2023-11-07 21:15 | Day surgery (SDC) | payer MEDICAID ==
[2023-11-07] MEDS: SODIUM CHLORIDE 0.9% 1,000 ML IV STA (21:43)
[2023-11-07] MEDS: HYDROmorphone 1 MG/ML CARPUJECT IVP STA ×2 (21:44→22:18)
[2023-11-07 22:02] LABS: BILIRUBIN,URINE NEGATIVE (NEGATIVE); GLUCOSE, URINE (UA) NEGATIVE (NEGATIVE); KETONES,URINE (UA) TRACE mg/dL (NEGATIVE); LEUKOCYTE ESTERASE, URINE TRACE (NEGATIVE); NITRITE,URINE NEGATIVE (NEGATIVE); OCCULT BLOOD,URINE LARGE (NEGATIVE); PROTEIN,URINE NEGATIVE (NEGATIVE); UROBILINOGEN,URINE 0.2 (NORMAL) E.U./dL (NORMAL)
[2023-11-07 22:04] LABS: CLARITY,URINE HAZY (CLEAR)
[2023-11-07 22:04] LABS: BASOPHILS # (AUTO) 0.1 10^3/uL (0.0-0.1); BASOPHILS % (AUTO) 0.3 %; EOSINOPHILS # (AUTO) 0.1 10^3/uL (0.0-0.7); EOSINOPHILS % (AUTO) 0.7 %; HCT - HEMATOCRIT 45.9 % (37.0-47.0); HGB - HEMOGLOBIN 14.6 g/dL (12.0-16.0); LYMPHOCYTES # (AUTO) 1.1 10^3/uL (1.5-3.5); LYMPHOCYTES % (AUTO) 6.8 %; MEAN CORPUSCULAR HEMOGLOBIN 28.8 pg (27.0-31.0); MEAN CORPUSCULAR HGB CONC 31.8 g/dL (32.0-36.0); MEAN CORPUSCULAR VOLUME 90.5 fL (81.0-99.0); MEAN PLATELET VOLUME 9.9 fL (7.9-10.8); MONOCYTES # (AUTO) 0.4 10^3/uL (0.0-1.0); MONOCYTES % (AUTO) 2.6 %; NEUTROPHILS # (AUTO) 14.7 10^3/uL (1.5-6.6); NEUTROPHILS % (AUTO) 89.2 %; PLT - PLATELET COUNT 316 10^3/uL (130-450); RED BLOOD COUNT 5.07 10^6/uL (4.20-5.40); RED CELL DISTRIBUTION WIDTH 13.6 % (12.0-15.0); WHITE BLOOD COUNT 16.5 x10^3/uL (4.8-10.8)
[2023-11-07 22:14] LABS: BACTERIA,URINE Few /HPF (None Seen); SQUAMOUS EPITHELIAL CELL,UR FEW Squamous (<= Few)
[2023-11-07 22:17] LABS: ALBUMIN 3.9 g/dL (3.2-5.5); ALBUMIN/GLOBULIN RATIO 1.2 (1.0-2.2); BILIRUBIN,TOTAL 1.3 mg/dL (0.2-1.0); CALCIUM 9.7 mg/dL (8.5-10.3); CREATININE 0.9 mg/dL (0.6-1.3); POTASSIUM 3.9 mmol/L (3.5-4.5); TOTAL PROTEIN 7.2 g/dL (6.4-8.9)
[2023-11-07] MEDS: TAMSULOSIN 0.4 MG CAPSULE PO STA (22:19)
[2023-11-07] MEDS: DEXAMETHASONE 10 MG/ML VIAL IVP STA (22:23)
[2023-11-07] MEDS ORDERED: LIDOCAINE-MPF 2% 5 ML VIAL ONE (22:28)
[2023-11-07] MEDS: LIDOCAINE-MPF 2% 7 ML in SODIUM CHLORIDE 0.9% 50 ML IV STA (22:33)
[2023-11-07] MEDS ORDERED: METOCLOPRAMIDE 10 MG/2 ML VIAL IVP PRN (23:07)
--- NOTE | 2023-11-07 23:11 | ED Physician Documentation ---
History of Present Illness - Stated complaint Stated Complaint: ABD PX - Chief complaint Chief Complaint: Abd Pain - History obtained from History obtained from: Patient, EMS - History of Present Illness Timing: Today Pain level max: 10 Pain level now: 10 - Additonal information Additional information: 53-year-old female had been here previously today had a lithotripsy at [place], had passed another ureteral stone earlier today. She was going to go to the OR, however her pain fully resolved in the emergency department and she states that she felt wonderful and went home. She states that about 1 to 2 hours ago, the pain spiked to a 10 out of 10 pain. Mainly in the lower abdomen. Nothing seems to make it better or worse. Had hematuria. No fevers. No chills. Nausea but no vomiting. No constipation or diarrhea. She was given Toradol by EMS. Review of Systems Constitutional: denies: Fever, Chills GI: denies: Vomiting, Diarrhea, Hematemesis, Bloody / black stool : reports: Hematuria. 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, 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, Breast implants - Present Medications Home Medications: Ambulatory Orders Medication Instructions Recorded Confirmed Docusate Sodium 100Mg Capsule 100 mg PO BID #10 cap 11/07/23 [Colace 100Mg Capsule] HYDROcod/ACETAM 5/325 [[place] 5/325] 1 ea PO Q6H PRN #12 tablet 11/07/23 Meloxicam [Mobic] 7.5 mg PO BID 10 Days #20 tablet 11/07/23 Phenazopyridine HCl [Pyridium] 200 mg PO TID PRN #6 tablet 11/07/23 Tamsulosin [Flomax] 0.4 mg PO DAILY #5 cap 11/07/23 polyethylene glycoL 3350(BULK) 17 gm PO Q6H PRN #1 each 11/07/23 [Miralax] - Allergies Allergies/Adverse Reactions: Allergies Allergy/AdvReac Type Severity Reaction Status Date / Time No Known Drug Allergies Allergy Verified 11/06/23 20:07 - Social History Does the pt smoke?: No Smoking Status: Never smoker Does the pt drink ETOH?: No Does the pt have substance abuse?: No - Immunizations Immunizations are current?: Yes - POLST Patient has POLST: No PD ED PE NORMAL - Vitals Vital signs reviewed: Yes - General General: Alert and oriented X 3, No acute distress - HEENT HEENT: PERRL, Moist mucous membranes - Neck Neck: Supple, no meningeal sign - Cardiac Cardiac: RRR, Strong equal pulses - Respiratory Respiratory: No respiratory distress, Clear bilaterally - Abdomen Abdomen: Soft, Non tender, Non distended - Back Back: No CVA TTP, No spinal TTP - Derm Derm: Warm and dry - Extremities Extremities: No edema - Neuro Neuro: Alert and oriented X 3 - Psych Psych: Normal mood, Normal affect Results - Vitals Vitals: Vital Signs - 24 hr 11/07/23 11/07/23 21:19 22:48 Temperature 37.2 C Heart Rate 99 101 H Respiratory 24 22 Rate Blood Pressure 153/107 H 142/92 H O2 Saturation 98 98 If not protocol 1.5 : Oxygen Flow, liters/minute Oxygen O2 Source Nasal cannula - Labs Labs: Laboratory Tests 11/07/23 11/07/23 11/07/23 21:25 21:25 21:50 WBC 16.5 H RBC 5.07 Hgb 14.6 Hct 45.9 MCV 90.5 MCH 28.8 MCHC 31.8 L RDW 13.6 Plt Count 316 MPV 9.9 Neut # (Auto) 14.7 H Lymph # (Auto) 1.1 L [place] # (Auto) 0.4 Eos # (Auto) 0.1 Baso # (Auto) 0.1 Absolute Nucleated RBC 0.00 Nucleated RBC % 0.0 Sodium 138 Potassium 3.9 Chloride 105 Carbon Dioxide 25 Anion Gap 8.0 BUN 12 Creatinine 0.9 Estimated GFR (MDRD) 66 L Glucose 166 H Calcium 9.7 Total Bilirubin 1.3 H AST 43 H ALT 49 Alkaline Phosphatase 83 Total Protein 7.2 Albumin 3.9 Globulin 3.3 Albumin/Globulin Ratio 1.2 Lipase 11 Urine Color DARK YELLOW Urine Clarity HAZY Urine pH 6.0 Ur Specific [place] >=1.030 H Urine Protein NEGATIVE Urine Glucose (UA) NEGATIVE Urine Ketones TRACE Urine Occult Blood LARGE H Urine Nitrite NEGATIVE Urine Bilirubin NEGATIVE Urine Urobilinogen 0.2 (NORMAL) Ur Leukocyte Esterase TRACE H Urine RBC 6-10 H Urine WBC 4-5 Ur Squamous Epith Cells FEW Squamous Urine Bacteria Few Ur Microscopic Review INDICATED Urine Culture Comments INDICATED PD Medical Decision Making - ED course Complexity details: reviewed results, re-evaluated patient, considered differential, d/w patient ED course: 53-year-old female with return of abdominal pain today. She has had 2 CT scans in the past 24 hours, therefore another CT scan was not performed. Discussed the case with Dr. Hernandez, urology, recommends pain control, IV dexamethasone and reassess. Patient was given IV fluids, Dilaudid, renally dosed lidocaine, and the aforementioned dexamethasone. Her pain was well-controlled, but given her level of symptoms and her recurrence of pain tonight, possible that there is a small stone that was not seen on the earlier CT scan, also possible that this is related to inflammation of the ureter from the hydroureter earlier. We will place the patient on the med/surg floor tonight, Dr. Hernandez will see the patient in the morning. This document was made in part using voice recognition software. While efforts are made to proofread this document, sound alike and grammatical errors may occur. Departure - Departure Disposition: ED Transfer to [facility] Clinical Impression: Ureterolithiasis, Hydroureter, right Abdominal pain Qualifiers: Abdominal location: unspecified location Qualified Code(s): R10.9 - Unspecified abdominal pain Condition: Stable Forms: PCP List
[2023-11-07] MEDS: LACTATED RINGERS 1,000 ML IV STA (23:15)
[2023-11-07] MEDS: ONDANSETRON 4 MG/2 ML VIAL IVP PRN (23:23)
[2023-11-08] MEDS: HYDROmorphone 0.5 MG/0.5 ML SYRINGE IVP PRN (00:43)
[2023-11-08] MEDS: KETOROLAC 15 MG/ML VIAL IVP PRN (03:20)
[2023-11-08] MEDS: ACETAMINOPHEN 325 MG TABLET PO PRN (06:54)
--- NOTE | 2023-11-08 08:29 | SURGERY HX AND PHYSICAL(T) ---
Surgical History & Physical - Chief Complaint/HPI Chief Complaint: right flank pain History of Present Illness: Samantha is a 53-year-old woman with a bizarre recent urological history. Late last week she had a uncomplicated right-sided ureteroscopy laser lithotripsy and stent procedure by the urologist at [facility] for an 11 mm UPJ stone. She had her stent left on a string and took it out early 2 days after her procedure rather than prescribed 3 days. She then presented to [facility] with severe flank pain. A CT scan was performed which showed a 4 mm distal right ureteral stone with ipsilateral hydroureteronephrosis. She was admitted to the hospital with plan for ureteroscopy and stone retrieval and stenting yesterday. Throughout the day she felt much better and a repeat scan was performed which showed that her stone had passed. She still had some hydroureteronephrosis which is not abnormal. As she had no pain requirements and the stones in the past her surgery was canceled and she was sent home. She did well throughout the day and then represented late in the evening again with severe 10 out of 10 right-sided flank pain. She was not rescanned She admitted to the hospital for presumed procedure today. Overnight she did well, but did require narcotic pain medications - PMH/PSH/Social Hx Does the pt have a hx of MRSA?: No Neurological History: None, Migraines Eyes, Ears, Nose, Throat: None Cardiovascular: Hypertension Respiratory: None Skin: None Endocrine/Autoimmune: None Gastrointestinal: GERD, Hiatal hernia, Other PUMPER GAUGER: None Urinary: Kidney stones Musculoskeletal: Chronic back pain Blood Disorders: None Psychiatric: Anxiety Smoking Status: Never smoker Does the pt drink ETOH?: No Does the pt have substance abuse?: No - Home Meds and Allergies Allergies/Adverse Reactions: Allergies Allergy/AdvReac Type Severity Reaction Status Date / Time No Known Drug Allergies Allergy Verified 11/06/23 20:07 - Vital Signs Heart Rate: 101 Blood Pressure: 142/92 Temperature: 36.3 C Respiratory Rate: 16 O2 Saturation: 97 Weight (kg): 96.7 kg Height: 1.52 m - Physical Exam General Appearance: positive: No acute distress Respiratory: positive: Breath sounds nml Cardiovascular: positive: Regular rate & rhythm - Patient Review Patient Review: Problems were reviewed with the patient during this visit. Medications were reviewed with the patient during this visit. Allergies were reviewed this patient during this visit. Pertinent Tests Reviewed: All pertitent test for this patient were reviewed. - Assessment & Plan Assessment and Plan: This a 53-year-old woman with a complex recent urological history mostly revolving around continued right-sided flank pain despite no evidence of ureteral stone. I recommend n.p.o. and IVF for now. Should be added on for procedure later today. I recommend cystoscopy, right retrograde pyelogram, right ureteral stent, possible right ureteroscopy, possible laser lithotripsy. The risks of the procedure including continued pain, infection, bleeding, injury to adjacent structures, need for additional procedures were discussed. I would like to leave a stent without a string and give it time to reduce swelling. I am away next week and so if the stent is meant to come out next week she will have to follow-up with [facility] urology for them to deal with the stent. Otherwise I can see her in 2 weeks for stent removal The patient states understanding and consents to the above plan
--- NOTE | 2023-11-08 10:38 | PHARMACY PROGRESS NOTE ---
- Best Possible Medication History Admit Date and Time: Processed by: Pharmacy Medications reviewed in ED?: No Medication History completed: Yes Patient Interview: Completed (Patient only taking the Hydrocodone/Acetaminophen on list, the others were newly prescribed yesterday and patient has not picked up yet. Leaving on list for now) Secondary Source(s): Insurance records As the person ultimately responsible for medication therapy, providers are able to order a medication from an existing home medication list in [facility] via the "Reconcile Routine" prior to Confirmation of that medication by bilingual patient support caseworker. Such practice is discouraged except when the physician, in their clinical judgment, deems that a medical need exists for a medication without regard to previous use.
[2023-11-08] MEDS ORDERED: LIDOCAINE 2% URO-JET 5 ML SYRINGE UR ONE (10:51)
[2023-11-08] MEDS ORDERED: PROPOFOL 200 MG/20 ML VIAL IVP ONE (12:05)
[2023-11-08] MEDS ORDERED: MIDAZOLAM 2 MG/2 ML VIAL ONE (12:05)
[2023-11-08] MEDS ORDERED: fentaNYL 100 MCG/2 ML VIAL ONE (12:05)
[2023-11-08] MEDS ORDERED: LIDOCAINE-PF 2% 10 ML AMP SUBQ ONE (12:08)
[2023-11-08] MEDS ORDERED: iohexoL-240 10 ML VIAL IVP ONE (12:24)
[2023-11-08] MEDS ORDERED: DEXAMETHASONE 4 MG/ML VIAL ONE (12:32)
[2023-11-08] MEDS ORDERED: ONDANSETRON 4 MG/2 ML VIAL ONE (12:32)
[2023-11-08] MEDS ORDERED: ceFAZolin 1 GM VIAL ONE (12:32)
[2023-11-08] MEDS: LACTATED RINGERS 500 ML IV ONE (12:43)
[2023-11-08] MEDS: LIDOCAINE 2% URO-JET 5 ML SYRINGE UR ONE (12:56)
[2023-11-08] MEDS: iohexoL-240 10 ML VIAL IVP ONE (12:57)
[2023-11-08] MEDS ORDERED: fentaNYL 100 MCG/2 ML VIAL IVP PRN (13:10)
[2023-11-08] MEDS ORDERED: HYDROmorphone 0.5 MG/0.5 ML SYRINGE IVP PRN (13:10)
[2023-11-08] MEDS ORDERED: ONDANSETRON 4 MG/2 ML VIAL IVP PRN (13:10)
[2023-11-08] MEDS ORDERED: ATROPINE ABBOJECT 1 MG/10 ML SYRINGE IVP PRN (13:10)
[2023-11-08] MEDS ORDERED: MORPHINE 2 MG/ML CARPUJECT IVP PRN (13:10)
[2023-11-08] MEDS ORDERED: NALOXONE 0.4 MG/ML VIAL IVP PRN (13:10)
[2023-11-08 13:17] VITALS: BP 125/97; O2SAT 94
--- NOTE | 2023-11-08 13:22 | Discharge Plan ---
Discharge Plan Problem Reviewed?: Yes Disposition: Home, Self Care Condition: Good Prescriptions: Docusate Sodium 100Mg Capsule [Colace 100Mg Capsule] 100 mg PO DAILY #14 cap Tamsulosin [Flomax] 0.4 mg PO DAILY #14 cap oxyBUTYnin chloride [Oxybutynin Chloride] 5 mg PO TID #30 tab oxyCODONE [Roxicodone] 5 mg PO Q4H PRN #6 tablet PRN Reason: Pain Diet: Regular Activity Restrictions: No Restrictions Shower Restrictions: No Driving Restrictions: No Instruction Topics: Stents Ureteral Additional Instructions or Follow Up instructions: You have a ureteral stent in place. This should be removed in the office in the next 1 to 3 weeks. I would recommend he follow-up with [facility] as they performed your first procedure for this. However, if they are unable to see you then please contact my office at [phone] to arrange cystoscopy and stent removal in the office. You have an antibiotic prescribed to you. Please take this 1 pill of an antibiotic on the way to the appointment to remove your stent No Smoking: If you smoke, Please STOP! Call for help. Follow-up with: Mike Hernandez MD [Provider Admit Priv/Credential] -
--- NOTE | 2023-11-08 13:26 | OPERATIVE REPORT ---
Operative Report - General Procedure Date: 11/08/23 Planned Procedure: Cystoscopy, right retrograde pyelogram, right ureteroscopy, possible laser lithotripsy, stent Pre-Op Diagnosis: Right hydroureteronephrosis Procedure Performed: Cystoscopy, right retrograde pyelogram, right ureteroscopy, stent Post Op Diagnosis: Right hydroureteronephrosis - Procedure Note Primary Surgeon: David Anesthesia Provider: CURTIS Patel Anesthesia Technique: General LMA Pathology: right kidney urine for culture Estimated Blood Loss (mL): 0 Findings: Normal cystoscopy Right hydroureteronephrosis to the level of the UVJ. Edema just proximal to the UVJ. New stent placed Complications: none - Other Other Information/Narrative: After informed sent was obtained the patient was brought to the OR and laid in the supine position. The patient was assessed per anesthesia protocols and prepped draped in usual sterile fashion in the dorsolithotomy position. A formal timeout was performed confirming patient, procedure and laterality. 22 Slovak scope was Echavarria ease into urinary bladder. Bladder was inspected in full and there were no masses, lesions or other concerns. Her right ureteral orifice was slightly edematous 5 ukrainian open-ended ureteral catheter was placed into the right UO and gently placed all the way up to the kidney. There was a hydronephrotic drip which was collected and sent for urine culture. A retropyelogram was performed which showed narrowing at the distal ureter just proximal to the UVJ on the right A sensor wire was placed up into the kidney. Using a short semirigid ureteroscope we advanced next to the wire and inspected the ureter directly. There were no masses, lesions or stones. A 6 Slovak 22 cm stent was placed with good curling of the kidney and good curling noted in the bladder. The bladder was emptied and Uro-Jet was placed. The procedure was concluded and the patient tolerated the procedure well. She was brought to PACU without further incident. She will follow-up with [facility] for stent removal or can contact us for stent removal in the next 2 to 4 weeks
--- NOTE | 2023-11-08 13:27 | DISCHARGE SUMMARY ---
"Discharge Summary Admit Date: 11/07/23 Discharge Date: 11/08/23 Discharging Provider: David Condition at Discharge: Good Discharge Disposition: 01 Home, Self Care - DIAGNOSES Admission Diagnoses: Right flank pain Right hydroureteronephrosis Discharge Diagnoses with Status of Each Condition: Right hydroureteronephrosis- resolved - HPI History of Present Illness: 53-year-old female with history of kidney stones who underwent a right-sided ureteroscopy, laser lithotripsy and stent for a 11 mm right UPJ stone and [facility] late last week. Her stent was left on a string and she removed it 1 day early. She then presented to [facility] with severe right flank pain. A CT scan showed a 4 mm distal ureteral stone. She then passed the stone and a repeat scan did confirm it was gone though she still had some hydroureter and her pain was much improved. She was discharged home on November 06. She then represented to the hospital later that evening with severe right flank pain again. She was admitted overnight for presumed obstructive hydroureter - CONSULTS | PROCEDURES Procedures: Cystoscopy, right retrograde pyelogram, right ureteroscopy, stent - HOSPITAL COURSE Hospital Course: She was admitted overnight for pain control. This did well overnight. She is then taken the OR around noon on November 08, 2023. For full details appears refer to the operative report but in brief she had some swelling of her right distal ureter without any evidence of significant obstruction such as stone. A urine sample was sent from her right kidney for culture and a stent was placed without a string She is then discharged home later that day - ALLERGIES Allergies/Adverse Reactions: Allergies Allergy/AdvReac Type Severity Reaction Status Date / Time No Known Drug Allergies Allergy Verified 11/06/23 20:07 - MEDICATIONS Home Medications: Ambulatory Orders Medication Instructions Recorded Confirmed Docusate Sodium 100Mg Capsule 100 mg PO BID #10 cap 11/07/23 [Colace 100Mg Capsule] HYDROcod/ACETAM 5/325 [Irving 5/325] 1 ea PO Q6H PRN #12 tablet 11/07/23 11/08/23 Meloxicam [Mobic] 7.5 mg PO BID 10 Days #20 tablet 11/07/23 Phenazopyridine HCl [Pyridium] 200 mg PO TID PRN #6 tablet 11/07/23 Tamsulosin [Flomax] 0.4 mg PO DAILY #5 cap 11/07/23 polyethylene glycoL 3350(BULK) 17 gm PO Q6H PRN #1 each 11/07/23 [Miralax] Docusate Sodium 100Mg Capsule 100 mg PO DAILY #14 cap 11/08/23 [Colace 100Mg Capsule] Tamsulosin [Flomax] 0.4 mg PO DAILY #14 cap 11/08/23 cephALEXin [Keflex] 500 mg PO ONCE #1 cap 11/08/23 oxyBUTYnin chloride [Oxybutynin 5 mg PO TID #30 tab 11/08/23 Chloride] oxyCODONE [Roxicodone] 5 mg PO Q4H PRN #6 tablet 11/08/23 - PHYSICAL EXAM AT DISCHARGE General Appearance: positive: No acute distress - LABS Result Diagrams: 11/07/23 21:25 11/07/23 21:25 - QUALITY (Female Hip Fx Only) Was patient sent home on osteoporosis medication?: No - FOLLOW UP Follow Up: She will follow-up with [facility] urology for stent removal in the next few weeks. If she cannot obtain follow-up and she will follow-up with [facility] urology for stent removal"
[2023-11-08] MEDS ORDERED: LACTATED RINGERS 1,000 ML IV SCH (14:00)
--- NOTE | 2023-11-08 15:23 | ANESTHESIA POST OP EVALUATION ---
Anesthesia Post Eval - Post Anesthesia Eval Vitals: Last Vital Signs Temp 36.4 C L 11/08/23 13:10 Pulse 93 11/08/23 13:10 Resp 18 11/08/23 13:10 BP 125/97 H 11/08/23 13:10 Pulse Ox 94 11/08/23 13:10 O2 Flow Rate 1.5 11/07/23 22:48 CV Function Including HR & BP: Stable Pain Control: Satisfactory Nausea & Vomiting: Negative Mental Status: Baseline Respiratory Status: Airway Patent Hydration Status: Satisfactory Anesthesia Complications: None
--- NOTE | 2023-11-08 15:27 | ANESTHESIA ---
Pre-Anesthesia VS, & Labs - Diagnosis right hydronephrosis - Procedure cystosopy, right uretreoscopy, right retrograde pyeloragram, right stent Vital Signs: Temp Pulse Resp BP Pulse Ox O2 Flow Rate 36.4 C L 93 18 125/97 H 94 1.5 11/08/23 13:10 11/08/23 13:10 11/08/23 13:10 11/08/23 13:10 11/08/23 13:10 11/07/23 22:48 Height: 5 ft Weight (kg): 96.7 kg Body Mass Index: 41.6 BMI Classification: Morbidly Obese - NPO >8 hours - Is Patient ?: No - Lab Results Current Lab Results: Laboratory Tests 11/07/23 21:25: Sodium 138, Potassium 3.9, Chloride 105, Carbon Dioxide 25, Ani on Gap 8.0, BUN 12, Creatinine 0.9, Estimated GFR (MDRD) 66 L, Glucose 166 H, Calcium 9.7, Total Bilirubin 1.3 H, AST 43 H, ALT 49, Alkaline Phosphatase 83, Total Protein 7.2, Albumin 3.9, Globulin 3.3, Albumin/Globulin Ratio 1.2, Lipase 11 11/07/23 21:25: WBC 16.5 H, RBC 5.07, Hgb 14.6, Hct 45.9, MCV 90.5, MCH 28.8, MCHC 31.8 L, RDW 13.6, Plt Count 316, MPV 9.9, Neut # (Auto) 14.7 H, Lymph # (Auto) 1.1 L, [place] # (Auto) 0.4, Eos # (Auto) 0.1, Baso # (Auto) 0.1, Absolute Nucleated RBC 0.00, Nucleated RBC % 0.0 Lab results reviewed: Yes Fish Bones: 11/07/23 21:25 11/07/23 21:25 Home Medications and Allergies Allergies/Adverse Reactions: Allergies Allergy/AdvReac Type Severity Reaction Status Date / Time No Known Drug Allergies Allergy Verified 11/06/23 20:07 Anes History & Medical History - Anesthetic History Anesthesia Complications: reports: No previous complications - Medical History Cardiovascular: reports: Hypertension Pulmonary: reports: None Gastrointestinal: reports: GERD, Hiatal hernia, Other Urinary: reports: Kidney stones Neuro: reports: None, Migraines Musculoskeletal: reports: Chronic back pain Endocrine/Autoimmune: reports: None Blood Disorders: reports: None Skin: reports: None Smoking Status: Never smoker - Surgical History Gynecologic: reports: section, 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, Breast implants Exam General: Alert, Oriented x3, Cooperative, No acute distress Dental: WNL Mouth Openin Fingerbreadth Neck Mobility: Normal Mallampati classification: II Thyromental Distance: 4-6 cm Mental/Cognitive Status: Alert/Oriented X3, Normal for patient Plan Anesthesia Type: General Consent for Procedure(s) Verified and Reviewed: Yes Code Status: Attempt Resuscitation ASA classification: 2-Mild systemic disease Is this case an emergency?: No
--- NOTE | 2023-11-09 10:40 | XRAY Report ---
PROCEDURE: OR C-Arm Procedure INDICATIONS: RIGHT SIDE STENT PLACEMENT FLUORO TIME: 0.1 MIN TECHNIQUE: 6 spot fluoroscopic intraoperative images of the abdomen and pelvis. COMPARISON: CT abdomen/pelvis 11/07/2023. FINDINGS: Intraoperative fluoroscopic images show right-sided ureteral stent in appropriate position. IMPRESSION: Fluoroscopy guidance was provided intraoperatively for right-sided ureteral stent placement. Reviewed by: Meng Casas MD on 11/09/2023 10:39 AM PDT Approved by: Meng Casas MD on 11/09/2023 10:39 AM PDT Station ID: [id number]
== END 2023-11-08 14:30 | disposition home or self-care (01) ==
LOC: EDUNIT# → ED 21:15 → MS2 23:07 → SDS 23:07
PROVIDERS: ATTEND Urology
DX: N13.30 Unspecified hydronephrosis (principal); Z87.442 Personal history of urinary calculi; I10 Essential (primary) hypertension; E66.01 Morbid (severe) obesity due to excess calories; Z68.41 Body mass index [BMI] 40.0-44.9, adult
CPT/HCPCS: 36415; 52332; 80053; 81001; 83690; 85025; 87077; 87086; 87181; 96365; 96375; 96376; 99284; 99285; A9270; C1758; C2617; J1170; J7040; J7120; Q9966; 81003

== ENCOUNTER 2023-11-13 17:42 | Emergency (ER) | payer MEDICAID ==
[2023-11-13 18:00] VITALS: O2SAT 99
--- NOTE | 2023-11-13 19:50 | ED Physician Documentation ---
History of Present Illness - Stated complaint Stated Complaint: BACK PX - Chief complaint Chief Complaint: Abd Pain - History obtained from History obtained from: Patient - Additonal information Additional information: HPI from patient. Patient complains of right flank and right para-lumbar pain, episodic over the past few days.She has had a few ED visits over the past few weeks for the same pain. Initial etiology was determined to be an 11 mm right ureteral stone for which she underwent laser lithotripsy at [facility] and a stent was placed. She subsequently had the stent removed, but then presented to [facility] ED for recurrence of this pain and at that time was found to have a 4 mm distal right- sided ureteral calculus. She was discharged in the ED without any procedural intervention as the pain resolved. However, she then again returned to [facility] ED for recurrence of pain; this was on 11/07/2023, at that time she was held overnight for pain control and the next morning taken to the [facility] OR by Dr. Hernandez (urology) and a right-sided ureteral stent was again placed. At that time, there was no calculus visualized on the ED CT but "persistent moderate hydronephrosis" was noted by radiologist. Patient says she is supposed to have the stent taken out within a week (I note that Dr. Hernandez's procedure dictation indicates stent is to be taken out "in the next few weeks" by [facility]). She presents at this time due to waxing and waning pain as noted above, no exacerbating or ameliorating factors, over the past few days and uncontrolled by bpqa-fae-amculkl analgesics (patient has run out of the pain medication she had been prescribed on previous visits). Most recent prescription filled was 11/08/2019 for oxycodone 6 tablets. Review of Systems Constitutional: denies: Fever, Chills, Sweats GI: reports: Abdominal Pain, Diarrhea. denies: Nausea, Vomiting, Constipation PD PAST MEDICAL HISTORY - Past Medical History Past Medical History: Yes Cardiovascular: Hypertension Respiratory: None Neuro: None, Migraines Endocrine/Autoimmune: None GI: GERD, Hiatal hernia, Other [employer]: None : Kidney stones HEENT: None Psych: Anxiety Musculoskeletal: Chronic back pain Derm: None - Past Surgical History Past 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 /[employer]: section, 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, Breast implants - Present Medications Home Medications: Ambulatory Orders Medication Instructions Recorded Confirmed Docusate Sodium 100Mg Capsule 100 mg PO BID #10 cap 11/07/23 [Colace 100Mg Capsule] HYDROcod/ACETAM 5/325 [Cowiche 5/325] 1 ea PO Q6H PRN #12 tablet 11/07/23 11/08/23 Meloxicam [Mobic] 7.5 mg PO BID 10 Days #20 tablet 11/07/23 Phenazopyridine HCl [Pyridium] 200 mg PO TID PRN #6 tablet 11/07/23 Tamsulosin [Flomax] 0.4 mg PO DAILY #5 cap 11/07/23 polyethylene glycoL 3350(BULK) 17 gm PO Q6H PRN #1 each 11/07/23 [Miralax] Docusate Sodium 100Mg Capsule 100 mg PO DAILY #14 cap 11/08/23 [Colace 100Mg Capsule] Tamsulosin [Flomax] 0.4 mg PO DAILY #14 cap 11/08/23 cephALEXin [Keflex] 500 mg PO ONCE #1 cap 11/08/23 oxyBUTYnin chloride [Oxybutynin 5 mg PO TID #30 tab 11/08/23 Chloride] oxyCODONE [Roxicodone] 5 mg PO Q4H PRN #6 tablet 11/08/23 Ciprofloxacin HCl 1 tablet PO BID 10 Days #20 tablet 11/13/23 Oxycodone HCl/Acetaminophen 1 - 2 each PO Q6HR PRN #14 tab 11/13/23 [Oxycodone-Acetaminophen 5-325] - Allergies Allergies/Adverse Reactions: Allergies Allergy/AdvReac Type Severity Reaction Status Date / Time No Known Drug Allergies Allergy Verified 11/13/23 17:44 - Social History Does the pt smoke?: No Smoking Status: Never smoker Does the pt drink ETOH?: No Does the pt have substance abuse?: No - Immunizations Immunizations are current?: Yes - POLST Patient has POLST: No PD ED PE NORMAL - Vitals Vital signs reviewed: Yes - General General: Alert and oriented X 3, No acute distress, Well developed/nourished - HEENT HEENT: Moist mucous membranes - Cardiac Cardiac: RRR, No murmur - Respiratory Respiratory: No respiratory distress, Clear bilaterally - Abdomen Abdomen: Normal bowel sounds, Soft, Non tender, Non distended - Back Back: Other (mild right CVAT) - Derm Derm: Normal color, Warm and dry, No rash Results - Vitals Vitals: Oxygen O2 Source Room air - Labs Labs: Microbiology 11/13/23 20:09 Urine Culture - Preliminary Urine,Clean Catch CULTURE IN PROGRESS. RESULTS TO FOLLOW. Laboratory Tests 11/13/23 11/13/23 11/13/23 20:09 21:25 21:25 WBC 12.0 H RBC 4.73 Hgb 13.7 Hct 43.4 MCV 91.8 MCH 29.0 MCHC 31.6 L RDW 13.7 Plt Count 319 MPV 9.4 Neut # (Auto) 7.2 H Lymph # (Auto) 3.3 Hamilton # (Auto) 0.9 Eos # (Auto) 0.4 Baso # (Auto) 0.1 Absolute Nucleated RBC 0.00 Nucleated RBC % 0.0 Sodium 136 Potassium 4.1 Chloride 105 Carbon Dioxide 24 Anion Gap 7.0 BUN 23 H Creatinine 1.0 Estimated GFR (MDRD) 58 L Glucose 93 Calcium 9.0 Total Bilirubin 0.9 AST 16 ALT 23 Alkaline Phosphatase 65 Total Protein 6.5 Albumin 3.6 Globulin 2.9 Albumin/Globulin Ratio 1.2 Lipase 13 Urine Color YELLOW Urine Clarity HAZY Urine pH 7.0 Ur Specific Yale 1.020 Urine Protein 100 H Urine Glucose (UA) NEGATIVE Urine Ketones NEGATIVE Urine Occult Blood LARGE H Urine Nitrite POSITIVE H Urine Bilirubin NEGATIVE Urine Urobilinogen 0.2 (NORMAL) Ur Leukocyte Esterase SMALL H Urine RBC TNTC H Urine WBC >25 H Ur Squamous Epith Cells RARE Squamous Urine Bacteria Rare Ur Microscopic Review INDICATED Urine Culture Comments INDICATED - Rads (name of study) CT A/P with IV contrast Relevant Findings:: Prelim report reviewed, See rad report PD Medical Decision Making - ED course Complexity details: reviewed results, re-evaluated patient, considered differential, d/w patient ED course: Patient is given 1 mg IV Dilaudid, 4 mg IV Zofran. She reports adequate improvement in her symptoms with these interventions. Mild leukocytosis and otherwise unremarkable CBC (WBC 12.0). Mildly elevated BUN (23) with normal creatinine (1.0) on otherwise normal ER abdominal panel. Urinalysis is positive for nitrites, and on microscopy she has TNTC RBC/hpf, >25 WBCs/hpf, rare squamous cells but only rare bacteria. CT A/P with IV contrast interpreted by radiologist as "right ureteral stent seen in place, with moderate right-sided hydronephrosis and hydroureter, which is improved compared to the prior. A delayed nephrogram is seen on the right side. Tiny nonobstructing right-sided kidney stones are seen." She is given 2 g IV ceftriaxone to cover for possible UTI given the urinalysis results (although the finding of only rare bacteria makes this unlikely). Results discussed with patient, return precautions are reviewed. She is in NAD on this reevaluation. She was provided take-home pack of Percocet, and I have electronically submitted a prescription for Percocet as well as a 10-day course of BID ciprofloxacin to her pharmacy of choice. The exact etiology of her symptoms is not apparent at this time. The CT scan does demonstrate that the right-sided stent is in place without overt evidence of obstruction. No findings on CT scan to suggest pyelonephritis nor complications of recent procedure (stent placement) Departure - Departure Disposition: 01 Home, Self Care Clinical Impression: Flank pain Condition: Good Instructions: ED Flank Pain Uncertain Cause Follow-Up: Mike Hernandez MD [Provider Admit Priv/Credential] - Prescriptions: Oxycodone HCl/Acetaminophen [Oxycodone-Acetaminophen 5-325] 1 - 2 each PO Q6HR PRN #14 tab PRN Reason: Pain >8 Ciprofloxacin HCl 1 tablet PO BID 10 Days #20 tablet Comments: There were no concerning findings on tonight's blood tests nor on the CT scan of your abdomen/pelvis. The CT scan shows the right ureteral stent is in appropriate position. The CT scan does not have any findings that would explain your pain. As we discussed, your urinalysis result is suggestive of a urinary tract infection although this would not account for your symptoms. Because you have a stent in place, you are at a greater risk of urinary tract infection progressing to a more serious infection (such as a kidney infection), and thus you were given an antibiotic through the IV in the emergency department (ceftriaxone), and I have prescribed a 10-day course of a different antibiotic (ciprofloxacin) to the [facility] pharmacy in [place]. I have also submitted a prescription for Percocet. Contact your urologist when the office is next open to arrange for the next available appointment for follow-up/reevaluation. I am prescribing a short course of narcotic pain medication for you. These are potentially dangerous and addictive medications that should be used carefully. These medications may constipate you. Take an cfdx-fwd-fjyiryy stool softener (docusate) twice daily with plenty of water while taking these medications. If you go 24 hours without a bowel movement, take sjqv-ost-jqydkft miralax, per package instructions. Do not drink or drive while taking these medications. If you received narcotic or sedating medications while in the emergency department, do not drive for 24 hours. Store this medication in a safe, secure place and out of reach of children. It is a violation of federal law to give or sell this medication to another person or to use in a manner other than prescribed. The ED will not refill narcotic prescriptions, including prescriptions lost or stolen. To dispose of unwanted medications: 1. [facility] [address] in [place] has a medication drop box. They accept prescription medications (in pill form) Tuesday through Tuesday 9:00 a.m. to 5:00 p.m. 2. The [facility] [employer] accepts prescription medications (in pill form only) for disposal year round. Call for more information. 3. Contact the [facility] for the next [facility] sponsored prescription drug collection event. , [phone], or [phone]; Discharge Date/Time: 11/14/23 00:09
[2023-11-13 20:33] LABS: BILIRUBIN,URINE NEGATIVE (NEGATIVE); GLUCOSE, URINE (UA) NEGATIVE (NEGATIVE); KETONES,URINE (UA) NEGATIVE (NEGATIVE); LEUKOCYTE ESTERASE, URINE SMALL (NEGATIVE); NITRITE,URINE POSITIVE (NEGATIVE); OCCULT BLOOD,URINE LARGE (NEGATIVE); PROTEIN,URINE 100 mg/dL (NEGATIVE); UROBILINOGEN,URINE 0.2 (NORMAL) E.U./dL (NORMAL)
[2023-11-13 20:35] LABS: CLARITY,URINE HAZY (CLEAR)
[2023-11-13 20:44] LABS: BACTERIA,URINE Rare /HPF (None Seen); RBC,URINE TNTC /HPF (0-5); SQUAMOUS EPITHELIAL CELL,UR RARE Squamous (<= Few); WBC,URINE >25 /HPF (0-5)
[2023-11-13] MEDS ORDERED: iohexoL-300 100 ML VIAL ONE (21:23)
[2023-11-13 21:34] LABS: BASOPHILS # (AUTO) 0.1 10^3/uL (0.0-0.1); BASOPHILS % (AUTO) 0.6 %; EOSINOPHILS # (AUTO) 0.4 10^3/uL (0.0-0.7); EOSINOPHILS % (AUTO) 3.3 %; HCT - HEMATOCRIT 43.4 % (37.0-47.0); HGB - HEMOGLOBIN 13.7 g/dL (12.0-16.0); LYMPHOCYTES # (AUTO) 3.3 10^3/uL (1.5-3.5); LYMPHOCYTES % (AUTO) 27.5 %; MEAN CORPUSCULAR HGB CONC 31.6 g/dL (32.0-36.0); MEAN CORPUSCULAR VOLUME 91.8 fL (81.0-99.0); MEAN PLATELET VOLUME 9.4 fL (7.9-10.8); MONOCYTES # (AUTO) 0.9 10^3/uL (0.0-1.0); MONOCYTES % (AUTO) 7.2 %; NEUTROPHILS # (AUTO) 7.2 10^3/uL (1.5-6.6); NEUTROPHILS % (AUTO) 59.8 %; PLT - PLATELET COUNT 319 10^3/uL (130-450); RED BLOOD COUNT 4.73 10^6/uL (4.20-5.40); RED CELL DISTRIBUTION WIDTH 13.7 % (12.0-15.0)
[2023-11-13] MEDS ORDERED: cefTRIAXone 2 GM VIAL ONE (21:34)
[2023-11-13] MEDS: SODIUM CHLORIDE 0.9% 1,000 ML IV STA (21:37)
[2023-11-13] MEDS: ONDANSETRON 4 MG/2 ML VIAL IVP STA (21:37)
[2023-11-13] MEDS: HYDROmorphone 1 MG/ML CARPUJECT IVP STA (21:37)
[2023-11-13] MEDS: cefTRIAXone 2 GM in SODIUM CHLORIDE 0.9% MINIBAG 100 ML IV STA (21:38)
[2023-11-13 21:46] LABS: ALBUMIN 3.6 g/dL (3.2-5.5); ALBUMIN/GLOBULIN RATIO 1.2 (1.0-2.2); BILIRUBIN,TOTAL 0.9 mg/dL (0.2-1.0); POTASSIUM 4.1 mmol/L (3.5-4.5); TOTAL PROTEIN 6.5 g/dL (6.4-8.9)
[2023-11-13] MEDS: iohexoL-300 100 ML VIAL IVP ONE (22:08)
--- NOTE | 2023-11-13 22:16 | CT Report ---
PROCEDURE: Abdomen/Pelvis W INDICATIONS: right flank pain CONTRAST: 100ml [id number] TECHNIQUE: After the administration of intravenous contrast, a CT scan of the abdomen and pelvis was performed. Images were recorded and evaluated at appropriate window settings. Reformats: coronal and sagittal. F or radiation dose reduction, the following was used: automated exposure control, adjustment of mA and /or kV according to patient size. COMPARISON: 11/07/2023, 12/07/2023 FINDINGS: Image quality: Diagnostic. Lower chest: Mammoplasty implants are incidentally noted. Liver: No solid mass. Gallbladder: Within normal limits. Biliary tree: No intrahepatic or extrahepatic dilation, accounting for age. Spleen: No splenomegaly. Pancreas: No pancreatic ductal dilation. Adrenals: No adrenal nodule. Kidneys and ureters: A right ureteral stent is seen in place. There is moderate right-sided hydrouret er and hydronephrosis. There is a mildly delayed nephrogram seen on the right side. Within the right kidney, there are nonobstructing stones seen, which measure up to 2 mm. The left kid radha is unremarkable. Stomach, bowel and peritoneum: No gastric or small bowel dilation. No abnormal wall thickening. No pa thologic free fluid. Lymph nodes: No central or retroperitoneal adenopathy. Vessels: No infrarenal aortic aneurysm. Patent portal vein. PELVIS Reproductive organs: The uterus demonstrates an unremarkable appearance for age. No adnexal masses ar e seen. Bladder: No abnormal wall thickening, accounting for underdistention. Pelvic lymph nodes: No pelvic adenopathy by size criteria. Bones: No aggressive osseous abnormality. Age-appropriate degenerative changes are seen. Other: A mild fat-containing periumbilical hernia is seen. IMPRESSION: Right ureteral stent seen in place, with moderate right-sided hydronephrosis and hydroureter, which i s improved compared to the prior. A delayed nephrogram is seen on the right side. Tiny nonobstructing right-sided kidney stones are seen. Additional findings: Mild fat-containing periumbilical hernia Reviewed by: Braden Walter MD on 11/13/2023 9:14 PM [place] Approved by: Braden Walter MD on 11/13/2023 9:14 PM [facility] Station ID: [id number]
[2023-11-14] MEDS: oxyCODONE/ACET 5/325 Prepack 4 PO STA (00:02)
[2023-11-14 00:17] VITALS: BP 126/74
== END 2023-11-14 00:09 | disposition home or self-care (01) ==
LOC: ED 17:42
DX: R10.9 Unspecified abdominal pain (principal)
CPT/HCPCS: 36415; 74177; 80053; 81001; 83690; 85025; 87077; 87086; 96365; 96375; 99284; J1170; Q9967; 81003